=== PATIENT | male | born 1945 | race African-American/Black ===

== ENCOUNTER 2018-10-16 09:20 | Inpatient (IN) | payer MEDICARE, OTHER ==
[~2018-10-16] VITALS: Ht 185.4 cm; Wt 95.8 kg
--- NOTE | 2018-10-16 09:18 | NUR ---
ED Nurse Note: PT'S SISTER: [phone]
[~2018-10-16 09:20] MED LIST: KEPPRA500 M4 ORAL
[2018-10-16 09:48] VITALS: BP 159/88
--- NOTE | 2018-10-16 09:53 | NUR ---
ED Nurse Note: rigo vitale . pt from [facility] . pt has a sz per sister unknown minutes pt A&Ox3 unpon arrival pt has not taken his home meds today BS 142 per ems. Blood sent ivf up infusing pt down to ct.
[2018-10-16 09:57] LABS: BASOPHILS % (AUTO) 0.9 % (0.0-2.0); EOSINOPHILS % (AUTO) 1.4 % (0.0-3.0); HEMATOCRIT 37.5 % (42.0-52.0); HEMOGLOBIN 12.2 G/DL (14.2-18.0); LYMPHOCYTES % (AUTO) 19.4 % (20.0-45.0); MEAN CORPUSCULAR VOLUME 98 FL (80-99); MONOCYTES % (AUTO) 8.1 % (1.0-10.0); NEUTROPHILS % (AUTO) 70.1 % (45.0-75.0); PLATELET COUNT 216 K/UL (150-450); RED BLOOD COUNT 3.84 M/UL (4.70-6.10); RED CELL DISTRIBUTION WIDTH 12.4 % (11.6-14.8); WHITE BLOOD COUNT 6.6 K/UL (4.8-10.8)
--- NOTE | 2018-10-16 10:01 | NUR ---
ED Nurse Note: pt back from ct.
[2018-10-16 10:12] LABS: ANION GAP 9 mmol/L (5-15); BLOOD UREA NITROGEN 28 mg/dL (7-18); CALCIUM 9.2 MG/DL (8.5-10.1); CARBON DIOXIDE 25 MMOL/L (21-32); CHLORIDE 108 MMOL/L (98-107); CREATININE 1.9 MG/DL (0.55-1.30); POTASSIUM 3.9 MMOL/L (3.5-5.1); SODIUM 142 MMOL/L (136-145)
--- NOTE | 2018-10-16 10:20 | Diagnostic Imaging Report ---
Indication: Seizure. Headache Technique: Contiguous 5 mm thick transaxial imaging of the head obtained in a Siemens Sensation [address] scanner. Soft tissue and bone windows generated. Automatic Exposure Control was utilized. Total Dose length Product (DLP): 1404.[address] Dose Index Volume (CTDIvol): 70.38 mGy Comparison: none Findings: There is mild prominence of the ventricles, basal cisterns, and cerebral sulci consistent with atrophy. Mild, nonspecific, white matter hypoattenuation is noted throughout the brain consistent with chronic small vessel disease. There is no midline shift, edema, acute hemorrhage, mass effect, or abnormal extra-axial fluid collections. Bones are unremarkable. Impression: No acute intracranial bleed, mass effect or edema. Mild atrophy of the brain. Nonspecific white matter hypoattenuation probably due to chronic small vessel disease. The CT scanner at [facility] is accredited by the [employer] and the scans are performed using dose optimization techniques as appropriate to a performed exam including Automatic Exposure control.
[2018-10-16 10:22] LABS: ALANINE AMINOTRANSFERASE 21 U/L (12-78); ALBUMIN 4.1 G/DL (3.4-5.0); ALBUMIN/GLOBULIN RATIO 1.1 (1.0-2.7); ALKALINE PHOSPHATASE 61 U/L (46-116); ASPARTATE AMINO TRANSFERASE 22 U/L (15-37); BILIRUBIN,TOTAL 0.3 MG/DL (0.2-1.0); CKMB 1.8 NG/ML (0.0-3.6); CREATINE KINASE 152 U/L (26-308)
[2018-10-16 11:17] LABS: APPEARANCE,URINE CLEAR; BILIRUBIN, URINE NEGATIVE (NEGATIVE); COLOR,URINE PALE YELLOW; GLUCOSE, URINE (UA) NEGATIVE (NEGATIVE); KETONES,URINE NEGATIVE (NEGATIVE); LEUKOCYTE ESTERASE ,URINE NEGATIVE (NEGATIVE); NITRITE,URINE NEGATIVE (NEGATIVE); PH,URINE 6 (4.5-8.0); PROTEIN,URINE 2+ (NEGATIVE); UROBILINOGEN,URINE NORMAL MG/DL (0.0-1.0)
[2018-10-16] MEDS ORDERED: HYDROcodone/Acetamin 10/325 tab ORAL ONE (11:30)
[2018-10-16] MEDS ORDERED: Nitroglycerin Subl 0.4mg tab SL PRN (11:45)
[2018-10-16] MEDS ORDERED: LORazepam Inj 2mg/ml 1ml IV PRN ×2 (11:45)
[2018-10-16] MEDS ORDERED: Milk of Magnesia 30ml Ud ORAL PRN ×2 (11:45→18:45)
[2018-10-16 12:37] VITALS: BP 122/94
[2018-10-16] MEDS ORDERED: Enoxaparin 40mg Inj SUBQ SCH ×2 (12:45)
--- NOTE | 2018-10-16 13:16 | NUR ---
ED Nurse Note: called floor RN not available for report
[2018-10-16 13:30] VITALS: BP 164/81
--- NOTE | 2018-10-16 13:30 | NUR ---
NURSE NOTES: Patient is transferred from ED. Nurse report given by DALLAS Yeboah. Patient's in stable condition, no sign of distress or SOB. Denies pain. Bed at lowest position, break engaged, call light within reach. iron miner is connected on the patient, IV site is intact and asymptomatic, no sign of redness or tenderness. Patient's belonging list is sign off with ER nurse. His flip phone is at bed side, his belonging bags are in the drawers. Patient has a fenny bag that has his interiano and card inside, patient wishes to carry it on his body at all time. Obtain patient's home medications from sister, Debbie Finney. Admission orders in.
--- NOTE | 2018-10-16 13:59 | Diagnostic Imaging Report ---
Indication: Chest pain Comparison: 05/25/2011 A single view chest radiograph was obtained. Findings: Some prominence of the heart size and central vessels without overt CHF demonstrated. No infiltrate identified. Lung bases obscured by soft tissues. Bones are unremarkable. Surgical clips noted in the lower cervical spine. IMPRESSION: No acute findings
[2018-10-16 16:00] VITALS: BP 140/65
[2018-10-16] MEDS ORDERED: ELIQUIS5 MG PO (16:47)
[2018-10-16] MEDS ORDERED: METOPROLOL TART25 MG ORAL (16:47)
[2018-10-16] MEDS ORDERED: CATAPRES0.1 MG ORAL (16:47)
[2018-10-16] MEDS ORDERED: GABAPENTIN300 MG ORAL (16:47)
[2018-10-16] MEDS ORDERED: ATORVASTATIN CA40 MG ORAL (16:52)
[2018-10-16] MEDS ORDERED: LEVETIRACETAM500 MG ORAL (16:52)
[2018-10-16] MEDS ORDERED: AMLODIPINE BESYL5 MG ORAL (16:52)
[2018-10-16] MEDS ORDERED: ASPIRIN EC81 MG ORAL (16:54)
--- NOTE | 2018-10-16 17:31 | NUR ---
ED Nurse Note: pt moved to floor at 1330
[2018-10-16] MEDS ORDERED: NORCO 10-325 T1 EACH ORAL (17:34)
[2018-10-16] MEDS ORDERED: Bisacodyl EC 5mg tab ORAL SCH (17:45)
[2018-10-16] MEDS: Miralax 17gm pkt ORAL SCH (18:39)
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
[2018-10-16] MEDS: Eliquis 5mg tablet ORAL SCH (18:43)
--- NOTE | 2018-10-16 19:18 | NUR ---
HAND-OFF: Report given to DALLAS Terry. Pt is in stable condition; plan of care endorsed.
--- NOTE | 2018-10-16 19:30 | NUR ---
NURSE NOTES: Received pt from DALLAS Mc. Pt awake, alert, and talkative. Bed in lowest position. Call light within reach. Will continue to monitor.
[2018-10-16 20:00] VITALS: BP 141/80
[2018-10-16] MEDS: NovoLOG Insulin Flexpen SUBQ SCH (21:00)
[2018-10-16] MEDS ORDERED: Metoprolol 25mg tab ORAL SCH (21:00)
[2018-10-16] MEDS: Metoprolol 25mg tab ORAL SCH (22:26)
[2018-10-17] VITALS: BP 141/66
--- NOTE | 2018-10-17 03:56 | NUR ---
HAND-OFF: Report given to DALLAS Loera. Pt stable.
[2018-10-17 04:00] VITALS: BP 146/89
[2018-10-17] MEDS: NovoLOG Insulin Flexpen SUBQ SCH ×4 (06:12→20:40)
[2018-10-17 07:14] LABS: BASOPHILS % (AUTO) 0.8 % (0.0-2.0); EOSINOPHILS % (AUTO) 2.1 % (0.0-3.0); HEMATOCRIT 35.3 % (42.0-52.0); HEMOGLOBIN 11.4 G/DL (14.2-18.0); LYMPHOCYTES % (AUTO) 19.8 % (20.0-45.0); MEAN CORPUSCULAR VOLUME 97 FL (80-99); MONOCYTES % (AUTO) 7.6 % (1.0-10.0); NEUTROPHILS % (AUTO) 69.8 % (45.0-75.0); PLATELET COUNT 203 K/UL (150-450); RED BLOOD COUNT 3.63 M/UL (4.70-6.10); RED CELL DISTRIBUTION WIDTH 12.4 % (11.6-14.8); WHITE BLOOD COUNT 7.1 K/UL (4.8-10.8)
--- NOTE | 2018-10-17 07:30 | NUR ---
HAND-OFF: Report given to DALLAS Casas. Endorsed plan of care.
--- NOTE | 2018-10-17 07:40 | NUR ---
NURSE NOTES: Received report from Raul Loera. Patient received awake and alertx4. in no apparent distress. Will continue to monitor.
[2018-10-17 07:54] LABS: ANION GAP 11 mmol/L (5-15); BLOOD UREA NITROGEN 19 mg/dL (7-18); CARBON DIOXIDE 22 MMOL/L (21-32); CHLORIDE 108 MMOL/L (98-107); CREATININE 1.6 MG/DL (0.55-1.30); SODIUM 141 MMOL/L (136-145)
[2018-10-17 08:00] VITALS: BP 147/71
--- NOTE | 2018-10-17 08:55 | NUR ---
PT EVALUATION NOTE Patient seen for initial evaluation, see complete evaluation for details. Patient presents with impaired balance, safety awareness, impaired gait mechanics with hypertonicity BLEs and impaired functional mobility. Patient is at risk for falls due to impulsivity and impaired balance. Patient will benefit from skilled inpatient PT intervention to address balance, safety, gait mechanics and functional mobility to decrease fall risk and improve level of function. Recommend discharge to SNF for further rehab to improve safety and mobility once medically cleared by MD. DME needs to be determined, patient states he has DME (a FWW, a bedside commode, single point cane, 4 wheeled walker with a seat, shower chair, a manual wheelchair and an electric wheelchair). . Addendum: 10/17/18 at 1204 by LOS CAMPOS PT Amended: Links added.
[2018-10-17] MEDS: Miralax 17gm pkt ORAL SCH ×2 (09:00→17:13)
[2018-10-17] MEDS: Metoprolol 25mg tab ORAL SCH ×2 (09:00→20:31)
[2018-10-17] MEDS: Aspirin EC 81mg tab ORAL SCH (09:31)
[2018-10-17] MEDS: Atorvastatin 80mg tab ORAL SCH (09:32)
[2018-10-17] MEDS: Eliquis 5mg tablet ORAL SCH ×2 (09:32→17:02)
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
[2018-10-17 11:58] VITALS: BP 135/66
[2018-10-17 16:00] VITALS: BP 112/63
--- NOTE | 2018-10-17 16:12 | NUR ---
CASE MANAGEMENT:REVIEW 73 YR OLD MALE BIBA FROM HOME CC: WITNESSED SEIZURE PMH: SEIZURE DISORDER SI: INTRACTABLE SEIZURE 98.0 72 18 167/70 100% ON RA H/H-12.2/37.5 BUN+28 CR+1.9 IS: 1L NS BOLUS NORCO PO CT HEAD CXR : TO TELEMETRY
--- NOTE | 2018-10-17 18:30 | General Progress Note ---
Assessment/Plan Status: stable Assessment/Plan: Status: stable Status Narrative 73 y/o AA male admitted for acute onset of seizure after non medical therapy for 3 days. # Seizure disorder - Continue Keppra 500 mg BID - Seizure precautions - CT head reviewed. - Non compliance with medical therapy is the most likely etiology and will monitor for now. No need for MRI brain. # CAD - Try to obtain old records - Resume home medications. # PAF - Most likely diagnosis and patient is on Eliquis as outpatient. - Will follow up and try to confirm information. # General weakness - PT and OT evaluation noted and SNF is indicated. - Patient is open to SNF - CM consult and follow up - please call me to discuss SNF if needed. Ordered placed. - # Full code Subjective Constitutional: Reports: malaise, weakness Neurologic/Psychiatric: Reports: anxiety Allergies: Coded Allergies: CODEINE (Unverified Allergy, Unknown, 10/16/18) All Systems: reviewed and negative except above Objective Last 24 Hour Vital Signs Date Time Temp Pulse Resp B/P (MAP) Pulse Ox O2 Delivery O2 Flow Rate FiO2 10/17/18 17:11 112/63 10/17/18 16:00 98.8 58 20 112/63 (79) 100 10/17/18 16:00 56 10/17/18 12:00 58 10/17/18 11:58 98.2 51 18 135/66 (89) 98 10/17/18 09:33 147/71 10/17/18 09:33 61 147/71 10/17/18 09:00 Room Air 10/17/18 09:00 61 147/71 10/17/18 08:00 98.6 61 20 147/71 (96) 98 10/17/18 08:00 75 10/17/18 04:00 98.5 73 24 146/89 (108) 96 10/17/18 04:00 73 10/17/18 00:00 97.7 60 20 141/66 (91) 96 10/17/18 00:00 60 10/16/18 22:26 72 141/80 10/16/18 21:00 Room Air 10/16/18 20:00 98.7 72 18 141/80 (100) 97 10/16/18 20:00 65 10/16/18 18:41 140/65 Intake and Output 7/17/19 7/18/19 19:00 07:00 Intake Total 1120 ml 120 ml Output Total 600 ml Balance 520 ml 120 ml Intake Oral 120 ml 120 ml IV Total 1000 ml Output Urine Total 600 ml # Voids 1 Laboratory Tests 10/17/18 06:16: White Blood Count 7.1, Red Blood Count 3.63L, Hemoglobin 11.4L, Hematocrit 35.3L , Mean Corpuscular Volume 97, Mean Corpuscular Hemoglobin 31.3H, Mean Corpuscular Hemoglobin Concent 32.1, Red Cell Distribution Width 12.4, Platelet Count 203, Mean Platelet Volume 7.4, Neutrophils (%) (Auto) 69.8, Lymphocytes (% ) (Auto) 19.8L, Monocytes (%) (Auto) 7.6, Eosinophils (%) (Auto) 2.1, Basophils (%) (Auto) 0.8, Sodium Level 141, Potassium Level 4.0, Chloride Level 108H, Carbon Dioxide Level 22, Anion Gap 11, Blood Urea Nitrogen 19H, Creatinine 1.6H , Estimat Glomerular Filtration Rate , Glucose Level 115H, Hemoglobin A1c 5.6, Calcium Level 9.0, Thyroid Stimulating Hormone (TSH) 0.160L Height (Feet): 6 Height (Inches): 1.00 Weight (Pounds): 206 General Appearance: WD/WN EENT: PERRL/EOMI Neck: non-tender Cardiovascular: normal peripheral pulses, normal rate Respiratory/Chest: chest wall non-tender Abdomen: normal bowel sounds, non tender Extremities: normal range of motion Edema: trace edema Neurologic: emt driver II-XII grossly normal Patrick Woo MD Oct 17, 2018 18:30
--- NOTE | 2018-10-17 19:57 | NUR ---
HAND-OFF: Report given to Raul Carpenter. patient stable. Plan of care endorsed
[2018-10-17 20:00] VITALS: BP 147/82
--- NOTE | 2018-10-17 20:00 | NUR ---
NURSE NOTES: Received report from Elias Ellsworth RN. Patient in bed AAO X3-4 with no complaints of acute pain or discomfort noted. Kept clean, dry, and comfortable in bed. IV line intact and patent SL with continuous cardiac monitoring in place. Able to ambulate using a walker to the bathroom, and offered bedside urinal PRN. Insists on using diapers PRN as well. On RA with no S/S of SOB or resp. distress, 02 sat at 95-96%. Safety and seizure precaution in place; siderails X2 up and padded, call light within reach, bed in lowest position and free from clutter, brakes and alarm on at all times, and suction equipment at bedside. Needs and wants anticipated and attended, will continue plan of care and monitor for any changes noted.
[2018-10-18] VITALS: BP 126/65
[2018-10-18 04:00] VITALS: BP 122/72
--- NOTE | 2018-10-18 04:00 | NUR ---
NURSE NOTES: Patient in bed asleep with no S/S of distress. Will continue to monitor
[2018-10-18] MEDS: NovoLOG Insulin Flexpen SUBQ SCH ×4 (06:21→21:00)
[2018-10-18 06:49] LABS: ANION GAP 10 mmol/L (5-15); BLOOD UREA NITROGEN 18 mg/dL (7-18); CALCIUM 8.9 MG/DL (8.5-10.1); CARBON DIOXIDE 23 MMOL/L (21-32); CHLORIDE 110 MMOL/L (98-107); CREATININE 1.5 MG/DL (0.55-1.30); SODIUM 143 MMOL/L (136-145)
--- NOTE | 2018-10-18 07:03 | Emergency Room Report ---
History of Present Illness General Chief Complaint: Seizure Source: Patient Present Illness HPI Patient presents with complaints of seizure activity Patient himself does not recall the specific incident however he does feel sore similar to previous seizures patient does not recall his medications He complained of a mild headache Also complains of left knee pain and left upper arm pain Denies any chest pain or shortness of breath denies any neck pain denies any vomiting or diarrhea Patient cannot recall specifically when his last seizure was however it was within the last 2 weeks Allergies: Coded Allergies: CODEINE (Unverified Allergy, Unknown, 10/16/18) Patient History Past Medical History: see triage record Pertinent Family History: none Reviewed Nursing Documentation: PMH: Agreed; PSxH: Agreed Nursing Documentation-PMH Past Medical History Deferred: Pt Cognitively Impaired Past Medical History: Deferred Hx Hypertension: Yes Hx Diabetes: Yes Hx Cancer: No Hx Gastrointestinal Problems: No Hx Transient Ischemic Attacks: Yes Hx Seizures: Yes Hx Weakness: Yes Review of Systems All Other Systems: negative except mentioned in HPI Physical Exam Vital Signs Date Time Temp Pulse Resp B/P (MAP) Pulse Ox O2 Delivery O2 Flow Rate FiO2 10/16/18 09:14 98.1 72 18 167/70 (102) 100 Room Air Sp02 EP Interpretation: reviewed, normal General Appearance: well appearing, no apparent distress Head: normocephalic, atraumatic Eyes: bilateral eye PERRL ENT: normal pharynx, no angioedema Neck: supple Respiratory: lungs clear, no retraction, no accessory muscle use Cardiovascular #1: regular rate, rhythm Gastrointestinal: soft, no mass Musculoskeletal: other - Equal service operator and upper extremity Neurologic: alert, oriented x3, responsive Skin: no rash Lymphatic: normal inspection Medical Decision Making Diagnostic Impression: Primary Impression: Epileptic seizure, generalized Additional Impression: Seizure ER Course Multiple differentials including but not limited to metabolic, neurological neurosurgical, infectious pathology entertained, given the patient's discomfort and presentation imaging was obtained Blood work remains at baseline levels Patient has a poor outpatient disposition and will require further inpatient care Labs Test 10/16/18 09:35 10/16/18 10:50 10/17/18 06:16 10/18/18 05:50 White Blood Count 6.6 K/UL (4.8-10.8) 7.1 K/UL (4.8-10.8) Red Blood Count 3.84 M/UL (4.70-6.10) 3.63 M/UL (4.70-6.10) Hemoglobin 12.2 G/DL (14.2-18.0) 11.4 G/DL (14.2-18.0) Hematocrit 37.5 % (42.0-52.0) 35.3 % (42.0-52.0) Mean Corpuscular Volume 98 FL (80-99) 97 FL (80-99) Mean Corpuscular Hemoglobin 31.7 PG (27.0-31.0) 31.3 PG (27.0-31.0) Mean Corpuscular Hemoglobin Concent 32.4 G/DL (32.0-36.0) 32.1 G/DL (32.0-36.0) Red Cell Distribution Width 12.4 % (11.6-14.8) 12.4 % (11.6-14.8) Platelet Count 216 K/UL (150-450) 203 K/UL (150-450) Mean Platelet Volume 7.3 FL (6.5-10.1) 7.4 FL (6.5-10.1) Neutrophils (%) (Auto) 70.1 % (45.0-75.0) 69.8 % (45.0-75.0) Lymphocytes (%) (Auto) 19.4 % (20.0-45.0) 19.8 % (20.0-45.0) Monocytes (%) (Auto) 8.1 % (1.0-10.0) 7.6 % (1.0-10.0) Eosinophils (%) (Auto) 1.4 % (0.0-3.0) 2.1 % (0.0-3.0) Basophils (%) (Auto) 0.9 % (0.0-2.0) 0.8 % (0.0-2.0) Prothrombin Time 10.6 SEC (9.30-11.50) Prothromb Time International Ratio 1.0 (0.9-1.1) Activated Partial Thromboplast Time 30 SEC (23-33) Sodium Level 142 MMOL/L (136-145) 141 MMOL/L (136-145) 143 MMOL/L (136-145) Potassium Level 3.9 MMOL/L (3.5-5.1) 4.0 MMOL/L (3.5-5.1) 4.0 MMOL/L (3.5-5.1) Chloride Level 108 MMOL/L (98-107) 108 MMOL/L (98-107) 110 MMOL/L (98-107) Carbon Dioxide Level 25 MMOL/L (21-32) 22 MMOL/L (21-32) 23 MMOL/L (21-32) Anion Gap 9 mmol/L (5-15) 11 mmol/L (5-15) 10 mmol/L (5-15) Blood Urea Nitrogen 28 mg/dL (7-18) 19 mg/dL (7-18) 18 mg/dL (7-18) Creatinine 1.9 MG/DL (0.55-1.30) 1.6 MG/DL (0.55-1.30) 1.5 MG/DL (0.55-1.30) Estimat Glomerular Filtration Rate mL/min (>60) mL/min (>60) mL/min (>60) Glucose Level 136 MG/DL (74-106) 115 MG/DL (74-106) 125 MG/DL (74-106) Lactic Acid Level 1.80 mmol/L (0.4-2.0) Calcium Level 9.2 MG/DL (8.5-10.1) 9.0 MG/DL (8.5-10.1) 8.9 MG/DL (8.5-10.1) Total Bilirubin 0.3 MG/DL (0.2-1.0) Aspartate Amino Transf (AST/SGOT) 22 U/L (15-37) Alanine Aminotransferase (ALT/SGPT) 21 U/L (12-78) Alkaline Phosphatase 61 U/L (46-116) Total Creatine Kinase 152 U/L (26-308) Creatine Kinase MB 1.8 NG/ML (0.0-3.6) Creatine Kinase MB Relative Index 1.1 Troponin I 0.008 ng/mL (0.000-0.056) Pro-B-Type Natriuretic Peptide 765 pg/mL (0-125) Total Protein 8.0 G/DL (6.4-8.2) Albumin 4.1 G/DL (3.4-5.0) Globulin 3.9 g/dL Albumin/Globulin Ratio 1.1 (1.0-2.7) Lipase 137 U/L (73-393) Serum Alcohol < 3 mg/dL Urine Color Pale yellow Urine Appearance Clear Urine pH 6 (4.5-8.0) Urine Specific [place] 1.015 (1.005-1.035) Urine Protein 2+ (NEGATIVE) Urine Glucose (UA) Negative (NEGATIVE) Urine Ketones Negative (NEGATIVE) Urine Blood 1+ (NEGATIVE) Urine Nitrite Negative (NEGATIVE) Urine Bilirubin Negative (NEGATIVE) Urine Urobilinogen Normal MG/DL (0.0-1.0) Urine Leukocyte Esterase Negative (NEGATIVE) Urine RBC 0-2 /HPF (0 - 0) Urine WBC 0 /HPF (0 - 0) Urine Squamous Epithelial Cells Occasional /LPF Urine Bacteria Occasional /HPF (NONE) Hemoglobin A1c 5.6 % (4.3-6.0) Thyroid Stimulating Hormone (TSH) 0.160 uiU/mL (0.358-3.740) Rhythm Strip Diag. Results EP Interpretation: yes Rate: 77 Rhythm: NSR, no PVC's, no ectopy Chest X-Ray Diagnostic Results Chest X-Ray Diagnostic Results : Chest X-Ray Ordered: Yes # of Views/Limited/Complete: 1 View Indication: Chest Pain EP Interpretation: Yes Interpretation: no consolidation, no effusion, no pneumothorax Impression: No acute disease Electronically Signed by: Jodie Avendaño DO CT/MRI/US Diagnostic Results CT/MRI/US Diagnostic Results : Impression CT HeadImpression: No acute intracranial bleed, mass effect or edema. Mild atrophy of the brain. Nonspecific white matter hypoattenuation probably due to chronic small vessel disease. Last Vital Signs Date Time Temp Pulse Resp B/P (MAP) Pulse Ox O2 Delivery O2 Flow Rate FiO2 10/18/18 04:00 97.7 62 18 122/72 (89) 97 10/17/18 21:00 Room Air Status: improved Disposition: ADMITTED INPATIENT Condition: Serious Referrals: NOT CHOSEN IPA/,REFERRING (PCP) Jodie Avendaño DO Oct 18, 2018 07:03
--- NOTE | 2018-10-18 07:33 | NUR ---
HAND-OFF: Report given to Loi Berman RN. Patient in bed asleep with no S/S of distress at this time. Endorsed plan of care.
[2018-10-18 08:00] VITALS: BP 149/80
--- NOTE | 2018-10-18 08:00 | NUR ---
NURSE NOTES: Patient is alert and oriented. Patient is sitting at side of bed eating breakfast, no reports of discomfort. Side rails are upx2 and padded. Bed is locked, in lowest position, and call light is within reach. Will continue to monitor.
[2018-10-18] MEDS: Eliquis 5mg tablet ORAL SCH ×2 (08:39→17:30)
[2018-10-18] MEDS: Atorvastatin 80mg tab ORAL SCH (08:39)
[2018-10-18] MEDS: HYDROcodone/Acetamin 5/325 tab ORAL PRN ×2 (08:39→17:32)
[2018-10-18] MEDS: Aspirin EC 81mg tab ORAL SCH (08:40)
[2018-10-18] MEDS: Metoprolol 25mg tab ORAL SCH ×2 (08:41→21:20)
[2018-10-18] MEDS: Miralax 17gm pkt ORAL SCH ×2 (08:45→17:26)
--- NOTE | 2018-10-18 09:25 | NUR ---
CASE MANAGEMENT:REVIEW 10/18/18 SI: SEIZURE. PAFIB 98.4 59 18 149/80 93% ON RA CR+1.5 IS: NORVASC PO QD ASA PO QD KEPPRA PO Q12 LOPRESSOR PO Q12 ELIQUIS PO BID : TELEMETRY DCP: FROM HOME
[2018-10-18 12:00] VITALS: BP 136/68
[2018-10-18 16:00] VITALS: BP 136/81
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
--- NOTE | 2018-10-18 17:15 | General Progress Note ---
Assessment/Plan Status: stable Assessment/Plan: Status: stable Status Narrative 73 y/o AA male admitted for acute onset of seizure after non medical therapy for 3 days. # Seizure disorder - Continue Keppra 500 mg BID - Seizure precautions - CT head reviewed. - Non compliance with medical therapy is the most likely etiology and will monitor for now. No need for MRI brain. # CAD - Try to obtain old records - Resume home medications. # PAF - Most likely diagnosis and patient is on Eliquis as outpatient. - Will follow up and try to confirm information. # General weakness - PT and OT evaluation noted and SNF is indicated but no coverage is left. - CM consult and follow up - Patient has used ALL SNF days and need to find a way to place at a safe environment. - # Full code Subjective ROS Limited/Unobtainable: Yes Cardiovascular: Reports: no symptoms Respiratory: Reports: no symptoms Gastrointestinal/Abdominal: Reports: abdomen distended Allergies: Coded Allergies: CODEINE (Unverified Allergy, Unknown, 10/16/18) All Systems: reviewed and negative except above Objective Last 24 Hour Vital Signs Date Time Temp Pulse Resp B/P (MAP) Pulse Ox O2 Delivery O2 Flow Rate FiO2 10/18/18 12:00 61 10/18/18 12:00 98.2 59 18 136/68 (90) 94 10/18/18 08:41 59 149/80 10/18/18 08:41 149/80 10/18/18 08:40 59 149/80 10/18/18 08:15 Room Air 10/18/18 08:00 74 10/18/18 08:00 98.4 59 18 149/80 (103) 93 10/18/18 04:00 97.7 62 18 122/72 (89) 97 10/18/18 04:00 59 10/18/18 00:00 51 10/18/18 00:00 97.4 51 18 126/65 (85) 98 10/17/18 21:00 Room Air 10/17/18 20:31 66 147/82 10/17/18 20:00 88 10/17/18 20:00 97.9 66 18 147/82 (103) 96 Intake and Output 10/17/18 10/18/18 19:00 07:00 Intake Total 280 ml Balance 280 ml Intake Oral 280 ml # Voids 3 3 # Bowel Movements 6 Laboratory Tests 10/18/18 05:50: Sodium Level 143, Potassium Level 4.0, Chloride Level 110H, Carbon Dioxide Level 23, Anion Gap 10, Blood Urea Nitrogen 18, Creatinine 1.5H, Estimat Glomerular Filtration Rate , Glucose Level 125H, Calcium Level 8.9 Height (Feet): 6 Height (Inches): 1.00 Weight (Pounds): 206 General Appearance: WD/WN EENT: PERRL/EOMI Cardiovascular: normal peripheral pulses, normal rate Respiratory/Chest: chest wall non-tender, lungs clear Abdomen: normal bowel sounds Neurologic: state inspector II-XII grossly normal Patrick Woo MD Oct 18, 2018 17:15
--- NOTE | 2018-10-18 19:53 | NUR ---
HAND-OFF: Report given to DALLAS Myers.
--- NOTE | 2018-10-18 19:54 | NUR ---
NURSE NOTES: Got report from Aminata HAYNES. Pt in stable condition. Denies any pain. No s/s of distress or discomfort noted. Pt resting in bed comfortably. Bed in low and locked position, call light within reach, bedside table within reach. Continue to monitor.
[2018-10-18 20:00] VITALS: BP 139/71
[2018-10-19] VITALS: BP 116/58
[2018-10-19] MEDS: HYDROcodone/Acetamin 5/325 tab ORAL PRN ×4 (00:40→20:34)
--- NOTE | 2018-10-19 03:00 | NUR ---
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 Charge nurse notified. Contact precautions placed.
[2018-10-19 04:20] VITALS: BP 123/70
[2018-10-19] MEDS: NovoLOG Insulin Flexpen SUBQ SCH ×4 (06:12→20:41)
--- NOTE | 2018-10-19 07:00 | NUR ---
HAND-OFF: Report given to Sophy HAYNES. Endorsed plan of care.
--- NOTE | 2018-10-19 07:52 | NUR ---
NURSE NOTES: Received report from DALLAS Myers. The patient is resting on the bed without acute distress or shortness of breath. The patient is alert and oriented and talkative. The patient's bed in the lowest position, call light in reach, and fall, aspiration, and seizure precaution reinforced. Will continue plan of care.
[2018-10-19 08:00] VITALS: BP 132/75
[2018-10-19] MEDS: Eliquis 5mg tablet ORAL SCH ×2 (09:00→17:29)
[2018-10-19] MEDS: Miralax 17gm pkt ORAL SCH ×3 (09:00→17:28)
[2018-10-19] MEDS: Metoprolol 25mg tab ORAL SCH ×2 (09:00→20:32)
[2018-10-19] MEDS: Aspirin EC 81mg tab ORAL SCH (09:30)
[2018-10-19] MEDS: Atorvastatin 80mg tab ORAL SCH (09:34)
[2018-10-19 12:00] VITALS: BP 126/60
--- NOTE | 2018-10-19 12:00 | NUR ---
NURSE NOTES: The patient is stable without acute distress or shortness of breath. The patient's skin is intact. No seizure noted. Will continue plan of care.
--- NOTE | 2018-10-19 13:01 | General Progress Note ---
Assessment/Plan Status: stable Assessment/Plan: Status: stable Status Narrative 73 y/o AA male admitted for acute onset of seizure after non medical therapy for 3 days. # Seizure disorder - Continue Keppra 500 mg BID - Seizure precautions - CT head reviewed. - Non compliance with medical therapy is the most likely etiology and will monitor for now. No need for MRI brain. - Baseline function, no need for neurology consultation. # CAD - Unable to obtain old records - Resume home medications. # PAF - Most likely diagnosis and patient is on Eliquis as outpatient. - Will follow up and try to confirm information. # General weakness - PT and OT evaluation noted and SNF is indicated but no coverage is left. - CM consult and follow up - Patient has used ALL SNF days and need to find a way to place at a safe environment. - PLACEMENT PENDING - # Full code Subjective ROS Limited/Unobtainable: Yes Allergies: Coded Allergies: CODEINE (Unverified Allergy, Unknown, 10/16/18) All Systems: reviewed and negative except above Subjective complains about the food and same menu all the time. No more seizures noted. Objective Last 24 Hour Vital Signs Date Time Temp Pulse Resp B/P (MAP) Pulse Ox O2 Delivery O2 Flow Rate FiO2 10/19/18 09:37 58 127/73 10/19/18 09:00 58 127/73 10/19/18 09:00 127/73 10/19/18 08:00 98.3 70 18 132/75 (94) 99 10/19/18 07:07 97.9 10/19/18 04:20 97.9 65 18 123/70 (87) 98 10/19/18 04:20 61 10/19/18 00:00 97.9 58 18 116/58 (77) 98 10/19/18 00:00 54 10/18/18 21:20 60 139/71 10/18/18 21:00 Room Air 10/18/18 20:00 56 10/18/18 20:00 97.7 60 20 139/71 (93) 97 10/18/18 17:30 136/81 10/18/18 16:00 53 10/18/18 16:00 98.3 56 20 136/81 (99) 98 Intake and Output 10/18/18 10/19/18 19:00 07:00 Intake Total 450 ml Balance 450 ml Intake Oral 450 ml # Voids 3 3 Height (Feet): 6 Height (Inches): 1.00 Weight (Pounds): 206 General Appearance: WD/WN EENT: PERRL/EOMI Neck: non-tender Cardiovascular: normal peripheral pulses Respiratory/Chest: chest wall non-tender Abdomen: normal bowel sounds Edema: trace edema Neurologic: commercial leasing agent II-XII grossly normal Skin: normal pigmentation Patrick Woo MD Oct 19, 2018 13:01
[2018-10-19 16:00] VITALS: BP 129/72
--- NOTE | 2018-10-19 19:00 | NUR ---
NURSE NOTES: Pt report received from HILARIA Matute RN TELE. pt appears to be watching TV and sitting up in bed. pt has a school lunch monitor in place, showing NRS, no signs symptoms of acute cardiac abnormalities noted at this moment. pt is on room air able to sat at 100%, no signs symptoms of acute resp distress noted. pts side rails are padded for SZR precautions. suction at bed side. all other saftey measure in place, bed locked and low, call light within reach, bed rails up times 2, walker by bed side. will continue plan of care.
--- NOTE | 2018-10-19 19:30 | NUR ---
HAND-OFF: Report given to DALLAS Wilcox. The patient is resting on the bed without acute distress or shortness of breath. The patient's bed in the lowest position, call light in reach, and fall, aspiration, and seizure precaution reinforced. Endorsed plan of care.
[2018-10-19 20:00] VITALS: BP 136/81
--- NOTE | 2018-10-19 23:30 | NUR ---
NURSE NOTES: contacted MD Chilo Saavedra office and spoke with Nava in regards to Pts TSH 0.160 level. awaiting MD response.
[2018-10-20] VITALS: BP 160/75
--- NOTE | 2018-10-20 00:19 | NUR ---
NURSE NOTES: MD Marquez called back, in regards to Pts THS lab. she stated to place order for Free T4 ([facility]). will carry out order.
[2018-10-20] MEDS: HYDROcodone/Acetamin 5/325 tab ORAL PRN ×4 (03:41→22:34)
[2018-10-20 04:00] VITALS: BP 136/67
--- NOTE | 2018-10-20 05:30 | NUR ---
NURSE NOTES: Pt blood sugar finger stick is 117. pt offered 1 unit OLESYA. pt refused Novolog.
[2018-10-20] MEDS: NovoLOG Insulin Flexpen SUBQ SCH ×4 (05:38→20:41)
--- NOTE | 2018-10-20 07:16 | NUR ---
HAND-OFF: Report given to Cullen HAYNES TELE.
[2018-10-20 08:00] VITALS: BP 141/76
--- NOTE | 2018-10-20 08:15 | NUR ---
NURSE NOTES: Patient is alert and oriented. Patient is resting in bed. Side rails are upx2 and padded. Bed is locked, in lowest position, and call light is within reach. Will continue to monitor.
[2018-10-20] MEDS: Atorvastatin 80mg tab ORAL SCH (08:40)
[2018-10-20] MEDS: Aspirin EC 81mg tab ORAL SCH (08:40)
[2018-10-20] MEDS: Eliquis 5mg tablet ORAL SCH ×2 (08:41→17:51)
[2018-10-20] MEDS: Metoprolol 25mg tab ORAL SCH (08:41)
[2018-10-20] MEDS: Miralax 17gm pkt ORAL SCH ×3 (08:43→17:56)
[2018-10-20 12:00] VITALS: BP 129/72
--- NOTE | 2018-10-20 14:53 | General Progress Note ---
Assessment/Plan Status: stable Assessment/Plan: Status: stable Status Narrative 73 y/o AA male admitted for acute onset of seizure after non medical therapy for 3 days. # Seizure disorder - Continue Keppra 500 mg BID - Seizure precautions - CT head reviewed. - Non compliance with medical therapy is the most likely etiology and will monitor for now. No need for MRI brain. - Baseline function, no need for neurology consultation. # CAD - Unable to obtain old records - Resume home medications. # PAF - Most likely diagnosis and patient is on Eliquis as outpatient. - Will follow up and try to confirm information. 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 - CM consult and follow up - Patient has used ALL SNF days and need to find a way to place at a safe environment. - PLACEMENT PENDING and NEEDS SW/CM active input. Medically stable for discharge. - # Full code Subjective Allergies: Coded Allergies: CODEINE (Unverified Allergy, Unknown, 10/16/18) All Systems: reviewed and negative except above Subjective complains about the food and same menu all the time. No more seizures noted. He reports coming from living [place] of [facility] ( [facility] Denies having family or support system. Objective Last 24 Hour Vital Signs Date Time Temp Pulse Resp B/P (MAP) Pulse Ox O2 Delivery O2 Flow Rate FiO2 10/20/18 12:00 55 10/20/18 12:00 98.2 54 19 129/72 (91) 98 10/20/18 08:41 59 141/76 10/20/18 08:41 141/76 10/20/18 08:41 59 141/76 10/20/18 08:30 Room Air 10/20/18 08:00 59 10/20/18 08:00 98.6 59 18 141/76 (97) 97 10/20/18 04:00 97.8 53 17 136/67 (90) 99 10/20/18 03:48 64 10/20/18 00:00 98.1 77 18 160/75 (103) 99 10/19/18 23:48 56 10/19/18 21:00 Room Air 10/19/18 20:32 64 136/81 10/19/18 20:00 98.2 64 19 136/81 (99) 99 10/19/18 19:32 58 10/19/18 18:38 139/67 10/19/18 16:00 64 10/19/18 16:00 98.1 73 19 129/72 (91) 99 Intake and Output 10/19/18 10/20/18 19:00 07:00 Intake Total 3000 ml Output Total 900 ml 2000 ml Balance 2100 ml -2000 ml Intake Oral 3000 ml Output Urine Total 900 ml 2000 ml # Voids 1 Laboratory Tests 10/20/18 06:40: Free Thyroxine 1.05 Height (Feet): 6 Height (Inches): 1.00 Weight (Pounds): 206 General Appearance: WD/WN EENT: PERRL/EOMI Cardiovascular: normal rate, regular rhythm Respiratory/Chest: normal breath sounds, decreased breath sounds Abdomen: normal bowel sounds, non tender, soft Extremities: normal range of motion Neurologic: oil scout II-XII grossly normal, no motor/sensory deficits Skin: normal pigmentation Patrick Woo MD Oct 20, 2018 14:53
[2018-10-20 16:00] VITALS: BP 115/75
--- NOTE | 2018-10-20 16:17 | NUR ---
NURSE NOTES: Heart rate decreased 45-47. Dr. Woo notified. Patient has no symptoms of discomfort. No new orders received.
--- NOTE | 2018-10-20 19:29 | NUR ---
NURSE NOTES: RECEIVED PATIENT RESTING IN BED, NO COMPLAINTS OF PAIN AT THIS TIME. FALL AND SEIZURE PRECAUTIONS IN PLACE: CALL LIGHT, BED SIDE TABLE, URINAL AND WALKER WITHIN REACH, BED IN LOW POSITION AND BED ALARM ON, SIDE RAILS PADDED AND HOB ELEVATED. PLAN OF CARE REVIEWED.
--- NOTE | 2018-10-20 19:37 | NUR ---
HAND-OFF: Report given to DALLAS Segovia.
[2018-10-20 20:00] VITALS: BP 152/79
--- NOTE | 2018-10-20 21:50 | NUR ---
NURSE NOTES: NOTED PATIENT HAS UNSTEADY GAIT AND AMBULATES WITH WALKER. PLACED COMMODE AT BEDSIDE AND INSTRUCTED PATIENT TO CALL FOR ASSISTANCE. PATIENT REFUSED TO USE COMMODE AND REQUESTED NOT TO HAVE BED ALARM ON. EXPLAINED TO PATIENT FALL AND SAFETY PRECAUTIONS. PATIENT VERBALIZED UNDERSTANDING BUT STILL REFUSING TO HAVE BED ALARM ON AND TO USE BEDSIDE COMMODE. CALL LIGHT WITHIN REACH WILL MONITOR PATIENT CLOSELY.
[2018-10-21] VITALS: BP 127/68
[2018-10-21 04:00] VITALS: BP 133/69
[2018-10-21] MEDS: HYDROcodone/Acetamin 5/325 tab ORAL PRN ×3 (05:01→20:54)
[2018-10-21 06:05] LABS: BASOPHILS % (AUTO) 0.7 % (0.0-2.0); EOSINOPHILS % (AUTO) 3.1 % (0.0-3.0); HEMATOCRIT 34.4 % (42.0-52.0); HEMOGLOBIN 11.2 G/DL (14.2-18.0); LYMPHOCYTES % (AUTO) 26.2 % (20.0-45.0); MEAN CORPUSCULAR VOLUME 97 FL (80-99); MONOCYTES % (AUTO) 8.9 % (1.0-10.0); NEUTROPHILS % (AUTO) 61.2 % (45.0-75.0); PLATELET COUNT 212 K/UL (150-450); RED BLOOD COUNT 3.55 M/UL (4.70-6.10); RED CELL DISTRIBUTION WIDTH 12.2 % (11.6-14.8); WHITE BLOOD COUNT 6.3 K/UL (4.8-10.8)
[2018-10-21] MEDS: NovoLOG Insulin Flexpen SUBQ SCH ×4 (06:10→20:46)
[2018-10-21 06:13] LABS: ANION GAP 7 mmol/L (5-15); BLOOD UREA NITROGEN 27 mg/dL (7-18); CARBON DIOXIDE 25 MMOL/L (21-32); CHLORIDE 108 MMOL/L (98-107); CREATININE 1.8 MG/DL (0.55-1.30); SODIUM 140 MMOL/L (136-145)
--- NOTE | 2018-10-21 07:09 | NUR ---
HAND-OFF: Report given to Elias ROMERO RN. PATIENT RESTING IN BED, NO SIGNS OF DISTRESS NOTED.
--- NOTE | 2018-10-21 07:36 | NUR ---
NURSE NOTES: receieved report from Juliette Carter.patient in bed awake and alert, stable condition. Will follow
[2018-10-21 08:00] VITALS: BP 136/60
[2018-10-21] MEDS: Miralax 17gm pkt ORAL SCH ×2 (08:38→17:13)
[2018-10-21] MEDS: Aspirin EC 81mg tab ORAL SCH (08:39)
[2018-10-21] MEDS: Atorvastatin 80mg tab ORAL SCH (08:39)
[2018-10-21] MEDS: Eliquis 5mg tablet ORAL SCH ×2 (08:39→17:13)
--- NOTE | 2018-10-21 09:33 | General Progress Note ---
Assessment/Plan Status: stable Assessment/Plan: 73 y/o AA male admitted for acute onset of seizure after non medical therapy for 3 days. # Seizure disorder - Continue Keppra 500 mg BID - Seizure precautions - CT head reviewed. - Non compliance with medical therapy is the most likely etiology and will monitor for now. No need for MRI brain. - Baseline function, no need for neurology consultation. # CAD - Unable to obtain old records - Resume home medications. # PAF - Most likely diagnosis and patient is on Eliquis as outpatient. - Will follow up and try to confirm information. 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 - CM consult and follow up - Patient has used ALL SNF days and need to find a way to place at a safe environment. - PLACEMENT PENDING and NEEDS SW/CM active input. Medically stable for discharge. - # Full code Subjective ROS Limited/Unobtainable: No Allergies: Coded Allergies: CODEINE (Unverified Allergy, Unknown, 10/16/18) Subjective patient says " i would like to leave". Discussed with patient his placement status. otherwise, patient has no complaints; denies seizures, sob, cp. Objective Last 24 Hour Vital Signs Date Time Temp Pulse Resp B/P (MAP) Pulse Ox O2 Delivery O2 Flow Rate FiO2 10/21/18 08:40 67 136/60 10/21/18 08:39 136/60 10/21/18 08:00 97.9 67 16 136/60 (85) 97 10/21/18 04:00 97.9 50 18 133/69 (90) 98 10/21/18 04:00 57 10/21/18 00:00 97.3 55 18 127/68 (87) 95 10/21/18 00:00 53 10/20/18 21:00 Room Air 10/20/18 20:00 97.7 64 19 152/79 (103) 96 10/20/18 20:00 51 10/20/18 17:50 143/77 10/20/18 16:00 52 10/20/18 16:00 98.0 59 19 115/75 (88) 98 10/20/18 12:00 55 10/20/18 12:00 98.2 54 19 129/72 (91) 98 Intake and Output 10/20/18 10/21/18 19:00 07:00 Intake Total 1500 ml 360 ml Output Total 900 ml Balance 1500 ml -540 ml Intake Oral 1500 ml 360 ml Output Urine Total 900 ml # Voids 4 4 Laboratory Tests 10/21/18 04:40: White Blood Count 6.3, Red Blood Count 3.55L, Hemoglobin 11.2L, Hematocrit 34.4L , Mean Corpuscular Volume 97, Mean Corpuscular Hemoglobin 31.7H, Mean Corpuscular Hemoglobin Concent 32.7, Red Cell Distribution Width 12.2, Platelet Count 212, Mean Platelet Volume 7.4, Neutrophils (%) (Auto) 61.2, Lymphocytes (% ) (Auto) 26.2, Monocytes (%) (Auto) 8.9, Eosinophils (%) (Auto) 3.1H, Basophils (%) (Auto) 0.7, Sodium Level 140, Potassium Level 4.0, Chloride Level 108H, Carbon Dioxide Level 25, Anion Gap 7, Blood Urea Nitrogen 27H, Creatinine 1.8H, Estimat Glomerular Filtration Rate , Glucose Level 142H, Calcium Level 9.0 Height (Feet): 6 Height (Inches): 1.00 Weight (Pounds): 206 General Appearance: WD/WN, no apparent distress, lethargic EENT: PERRL/EOMI Neck: non-tender, normal alignment, supple Cardiovascular: normal rate, regular rhythm, no JVD Respiratory/Chest: lungs clear, normal breath sounds, no respiratory distress Abdomen: normal bowel sounds, non tender, soft Extremities: normal range of motion, non-tender Edema: no edema noted Arm (L), no edema noted Arm (R), no edema noted Leg (L), no edema noted Leg (R), no edema noted Pedal (L), no edema noted Pedal (R), no edema noted Generalized Neurologic: wool and pelt grader II-XII grossly normal Charlotte Drake DO Oct 21, 2018 09:33
[2018-10-21 12:00] VITALS: BP 141/81
--- NOTE | 2018-10-21 15:16 | NUR ---
RD ASSESSMENT & RECOMMENDATIONS SEE CARE ACTIVITY FOR COMPLETE ASSESSMENT DAILY ESTIMATED NEEDS: Needs based on Cardiac, renal 86kg adj 25-30 kcals/kg 3280-2889 total kcals 1-1.2 g protein/kg 86-103 g total protein 25-30 mL/kg 3909-9494 total fluid mLs NUTRITION DIAGNOSIS: Decreased sodium needs r/t renal and cardiac status as evidenced by pt w/ h/o CKD, h/o CVA, BP elev currently (141/81). [facility] + LOW NA PO DIET RECOMMENDATIONS: REC LOW NA DIET ONLY (texture per BOOM CAT OPERATOR) ADDITIONAL RECOMMENDATIONS: 1) Monitor renal fxn need for renal diet 2) Added snacks BID in b/w meals 3) BOOM CAT OPERATOR re-eval for texture upgrade
[2018-10-21 16:00] VITALS: BP 153/77
--- NOTE | 2018-10-21 19:34 | NUR ---
HAND-OFF: Report given to Raul Loera.Patient stable. Plan of care endorsed
--- NOTE | 2018-10-21 19:35 | NUR ---
NURSE NOTES: received pt from DALLAS Smith. Pt is awake and resting in bed in no acute distress. IV site intact. Bed locked in lowest position, call light within reach. Will continue with plan of care.
[2018-10-21 20:00] VITALS: BP 133/70
--- NOTE | 2018-10-21 20:52 | Cardiology Report ---
APPROVED REPORT EKG Measurement Heart [id number] OH [id number] Sinus rhythm with premature atrial complexes Left axis deviation Abnormal ECG
[2018-10-22] VITALS: BP 112/58
[2018-10-22 04:00] VITALS: BP 140/63
[2018-10-22] MEDS: NovoLOG Insulin Flexpen SUBQ SCH ×4 (06:30→20:42)
[2018-10-22] MEDS: HYDROcodone/Acetamin 5/325 tab ORAL PRN ×3 (07:07→19:20)
--- NOTE | 2018-10-22 07:32 | NUR ---
HAND-OFF: Report given to DALLAS Beckett. Pt resting in bed in no acute distress. Iv site intact. Bed locked in lowest position, call light within reach. Endorsed plan of care.
--- NOTE | 2018-10-22 07:34 | NUR ---
NURSE NOTES: Received report from DALLAS Loera. The patient is resting on the bed without acute distress or shortness of breath. The patient's bed in the lowest position, call light in reach, and fall, aspiration, and seizure precaution reinforced. IV site is intact and patent. Will continue plan of care.
[2018-10-22 08:00] VITALS: BP 142/79
--- NOTE | 2018-10-22 08:46 | General Progress Note ---
Assessment/Plan Status: stable Assessment/Plan: 73 y/o AA male admitted for acute onset of seizure after non medical therapy for 3 days. # Seizure disorder - Continue Keppra 500 mg BID - Seizure precautions - CT head reviewed. - Non compliance with medical therapy is the most likely etiology and will monitor for now. No need for MRI brain. - Baseline function, no need for neurology consultation. # CAD - Unable to obtain old records - Resume home medications. # PAF - Most likely diagnosis and patient is on Eliquis as outpatient. - Will follow up and try to confirm information. 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 # Full code # Dispo - CM consult and follow up - Patient has used ALL SNF days and need to find a way to place at a safe environment. - PLACEMENT PENDING and NEEDS SW/CM active input. Medically stable for discharge. Subjective Allergies: Coded Allergies: CODEINE (Unverified Allergy, Unknown, 10/16/18) Subjective patient complains of diaper not being changed, however discussed with RN who informed that patient is having diaper changed. Patient appears to have some encephalopathy. asks for asa to be added to med list when he is already getting it Objective Last 24 Hour Vital Signs Date Time Temp Pulse Resp B/P (MAP) Pulse Ox O2 Delivery O2 Flow Rate FiO2 10/22/18 04:00 57 10/22/18 04:00 98.0 57 18 140/63 (88) 100 10/22/18 00:00 98.2 80 20 112/58 (76) 96 10/22/18 00:00 80 10/21/18 21:00 Room Air 10/21/18 20:00 77 10/21/18 20:00 98.4 77 20 133/70 (91) 98 10/21/18 17:34 59 10/21/18 17:13 141/81 10/21/18 16:35 98.2 10/21/18 16:00 98.1 61 18 153/77 (102) 98 10/21/18 13:15 61 10/21/18 12:00 98.2 61 18 141/81 (101) 98 10/21/18 09:00 Room Air Intake and Output 10/21/18 10/22/18 19:00 07:00 Intake Total 580 ml Balance 580 ml Intake Oral 580 ml # Voids 5 Height (Feet): 6 Height (Inches): 1.00 Weight (Pounds): 206 General Appearance: lethargic EENT: PERRL/EOMI, TMs normal Neck: non-tender, normal alignment, supple Cardiovascular: normal rate, regular rhythm, no JVD Respiratory/Chest: lungs clear, normal breath sounds, no respiratory distress Abdomen: non tender, soft, no organomegaly, no mass Extremities: normal range of motion, non-tender, normal inspection Edema: no edema noted Arm (L), no edema noted Arm (R), no edema noted Leg (L), no edema noted Leg (R), no edema noted Pedal (L), no edema noted Pedal (R), no edema noted Generalized Neurologic: can closing machine tender II-XII grossly normal Charlotte Drake DO Oct 22, 2018 08:46
[2018-10-22] MEDS: Aspirin EC 81mg tab ORAL SCH (09:08)
[2018-10-22] MEDS: Eliquis 5mg tablet ORAL SCH ×2 (09:08→18:19)
[2018-10-22] MEDS: Atorvastatin 80mg tab ORAL SCH (09:09)
[2018-10-22] MEDS: Miralax 17gm pkt ORAL SCH ×2 (09:09→18:19)
--- NOTE | 2018-10-22 10:21 | NUR ---
NURSE NOTES: The patient is stable without acute distress or shortness of breath. Waiting for business case analyst for the placement in safe environment.
[2018-10-22 12:00] VITALS: BP 133/82
--- NOTE | 2018-10-22 15:00 | NUR ---
NURSE NOTES: Spoke with Delia, the media planner, regarding placement for the patient. The media planner and adult protective caseworker is working on the placement. The patient and family member was informed by Delia.
[2018-10-22 16:00] VITALS: BP 117/68
--- NOTE | 2018-10-22 16:49 | NUR ---
CASE MANAGEMENT:REVIEW 10/22/18 SI: SEIZURE. PAFIB 98.3 62 20 117/68 98% ON RA IS: PEPCID PO QD NORVASC PO QD ASA PO QD KEPPRA PO Q12 ELIQUIS PO BID NEURONTIN PO BID : TELEMETRY STATUS DCP: HOMELESS
--- NOTE | 2018-10-22 16:52 | NUR ---
DISCHARGE PLANNING PATIENT HAS EXHAUSTED HIS MEDICARE DAYS THUS HE WILL NEED TO GO TO SNF UNDER HIS [facility] K[facility]IR DOES NOT HAVE A CONTRACT WITH [facility] SO PATIENT WILL NEED TO BE REFERRED TO A [facility] CONTRACTED FACILITY
--- NOTE | 2018-10-22 19:14 | NUR ---
NURSE NOTES: Received pt from DALLAS Beckett. Pt is awake and resting in bed in no acute distress. Iv site intact. Bed locked in lowest position, call light within reach. Will continue with plan of care.
[2018-10-22 20:00] VITALS: BP 132/78
[2018-10-23] VITALS: BP 135/75
[2018-10-23 04:00] VITALS: BP 146/80
[2018-10-23] MEDS: HYDROcodone/Acetamin 5/325 tab ORAL PRN ×3 (04:59→17:58)
[2018-10-23] MEDS: NovoLOG Insulin Flexpen SUBQ SCH ×4 (06:02→20:43)
--- NOTE | 2018-10-23 07:09 | NUR ---
HAND-OFF: Report given to DALLAS Beckett. Pt is awake and resting in bed in no acute distress. IV site intact and patent. Bed locked in lowest position, call light within reach. Endorsed plan of care.
--- NOTE | 2018-10-23 07:10 | NUR ---
NURSE NOTES: Received report from DALLAS Loera. The patient is resting on the bed without acute distress or shortness of breath. The patient's bed in the lowest position, call light in reach, and fall, aspiration and seizure precaution reinforced. IV site intact and patent. Pending for placement and case management and community planner on the case. Will continue plan of care.
[2018-10-23 08:00] VITALS: BP 143/77
[2018-10-23] MEDS: Eliquis 5mg tablet ORAL SCH ×2 (08:33→17:38)
[2018-10-23] MEDS: Aspirin EC 81mg tab ORAL SCH (08:33)
[2018-10-23] MEDS: Atorvastatin 80mg tab ORAL SCH (08:34)
[2018-10-23] MEDS: Miralax 17gm pkt ORAL SCH ×2 (08:34→17:38)
[2018-10-23] MEDS ORDERED: GABAPENTIN400 MG ORAL (10:03)
--- NOTE | 2018-10-23 10:05 | Discharge Instructions ---
Discharge Instructions Discharge Instructions Follow up with: pcp Call MD/Return to Hospital if: intractable fevers, pain. seizures Services at Discharge: physical therapy Diet: cardiac 2 GM Na, low fat Resume Normal Activity?: Yes Activity: resume normal activities For Congestive Heart Failure Reminder Report to your physician any weight gain of 5 pounds or more in one week. Lina Valdes MD Oct 23, 2018 10:04
--- NOTE | 2018-10-23 10:41 | NUR ---
NURSE NOTES: Per Dr. Valdes, the patient will be placed to [facility] under insurance. Dr. Valdes ordered the patient to be discharged. Will confirm the placement with telemarketing manager and will work on discharge order. Will continue plan of care.
--- NOTE | 2018-10-23 10:53 | NUR ---
DISCHARGE PLANNING Discharge order noted Patient has been referred to ; [facility] [phone] [facility] [phone] [facility] [phone] Await Acceptance and Room Number
--- NOTE | 2018-10-23 11:29 | NUR ---
NURSE NOTES: Per Trisha, insurance took back for placement for [facility]. Needs to find the new place. Will wait for the respond from the protective services case worker. Will continue plan of care.
[2018-10-23 12:00] VITALS: BP 132/74
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
--- NOTE | 2018-10-23 15:44 | NUR ---
DISCHARGE ORDER NOTED Patient has been accepted to; [facility] [address] [place] [address] Bed: 18-C Skilled [phone] for Nurse to Nurse report [facility] ETA for transportation: 20:00 DCP unable to reach family, voicemail message left of current discharge plans.
[2018-10-23 16:00] VITALS: BP 137/74
--- NOTE | 2018-10-23 16:22 | NUR ---
NURSE NOTES: Informed regarding discharge order and placement to [facility] [address] Room 18[address] @2000 to the patient and Debbie, sister. The patient and sister verbalized understanding.
--- NOTE | 2018-10-23 16:24 | NUR ---
NURSE NOTES: Gave report and course of hospitalization to José Miguel, who is a receiving nurse @ [facility] [address]. Informed that transporter will arrive 1999. Will continue plan of care.
--- NOTE | 2018-10-23 18:51 | General Progress Note ---
Assessment/Plan Status: stable Assessment/Plan: Assessment/Plan: 73 y/o AA male admitted for acute onset of seizure after non medical therapy for 3 days. # Seizure disorder - Continue Keppra 500 mg BID - Seizure precautions - CT head reviewed. - Non compliance with medical therapy is the most likely etiology and will monitor for now. No need for MRI brain. - Baseline function, no need for neurology consultation. # CAD - Unable to obtain old records - Resume home medications. # PAF - Most likely diagnosis and patient is on Eliquis as outpatient. - Will follow up and try to confirm information. 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 # Full code # Dispo - CM consult and follow up - Patient has used ALL SNF days and need to find a way to place at a safe environment. - PLACEMENT PENDING and NEEDS SW/CM active input. Medically stable for discharge. Subjective Date patient seen: Oct 23, 2018 ROS Limited/Unobtainable: No Allergies: Coded Allergies: CODEINE (Unverified Allergy, Unknown, 10/16/18) All Systems: reviewed and negative except above Subjective No acute overnight events, pt with no complaints, states he feels well. Pending placement Objective Last 24 Hour Vital Signs Date Time Temp Pulse Resp B/P (MAP) Pulse Ox O2 Delivery O2 Flow Rate FiO2 10/23/18 17:37 135/64 10/23/18 16:00 98.1 63 20 137/74 (95) 95 10/23/18 12:00 70 10/23/18 12:00 98.4 64 20 132/74 (93) 95 10/23/18 09:00 Room Air 10/23/18 08:35 57 143/77 10/23/18 08:33 143/77 10/23/18 08:00 98.4 57 20 143/77 (99) 96 10/23/18 08:00 64 10/23/18 04:00 53 10/23/18 04:00 97.9 53 19 146/80 (102) 100 10/23/18 00:00 98.3 58 19 135/75 (95) 97 10/23/18 00:00 58 10/22/18 21:00 Room Air 10/22/18 20:00 60 10/22/18 20:00 98.0 60 19 132/78 (96) 98 Intake and Output 10/22/18 10/23/18 19:00 07:00 Intake Total 770 ml Output Total 700 ml 950 ml Balance 70 ml -950 ml Intake Oral 770 ml Output Urine Total 700 ml 950 ml # Voids 1 4 Height (Feet): 6 Height (Inches): 1.00 Weight (Pounds): 211 Objective General Appearance: calm, answering questions appropriately EENT: PERRL/EOMI, TMs normal Neck: non-tender, normal alignment, supple Cardiovascular: normal rate, regular rhythm, no JVD Respiratory/Chest: lungs clear, normal breath sounds, no respiratory distress Abdomen: non tender, soft, no organomegaly, no mass Extremities: normal range of motion, non-tender, normal inspection Edema: no edema noted Arm (L), no edema noted Arm (R), no edema noted Leg (L), no edema noted Leg (R), no edema noted Pedal (L), no edema noted Pedal (R), no edema noted Generalized Neurologic: retort pre cooker II-XII grossly normal Lina Valdes MD Oct 23, 2018 18:51
--- NOTE | 2018-10-23 19:33 | NUR ---
HAND-OFF: Report given to DALLAS Myers. Informed about ETA of transporter @1999. Informed that report given to José Miguel @ [facility] [address] to room 18C. The patient's bed in the lowest position, call light in reach, and fall, aspiration, and seizure precaution reinforced. Endorsed plan of care.
--- NOTE | 2018-10-23 19:34 | NUR ---
NURSE NOTES: Got report from Sophy HAYNES. Pt in stable condition. Denies any pain. No s/s of distress or discomfort noted. Pt resting in bed comfortably. Bed in low and locked position, call light within reach, bedside table within reach. Per AM DALLAS Beckett pt is going to be discharged at 1999 to [facility] and will be transported via [facility]. Continue to monitor.
[2018-10-23 20:00] VITALS: BP 145/90
[2018-10-23 20:47] LABS: ANION GAP 12 mmol/L (5-15); BLOOD UREA NITROGEN 26 mg/dL (7-18); CARBON DIOXIDE 24 MMOL/L (21-32); CHLORIDE 104 MMOL/L (98-107); CREATININE 1.8 MG/DL (0.55-1.30); POTASSIUM 4.4 MMOL/L (3.5-5.1); SODIUM 140 MMOL/L (136-145)
--- NOTE | 2018-10-23 21:45 | NUR ---
NURSE NOTES [facility] came to pickup pt to be discharged to [facility]. Pt in stable condition.
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
== END 2018-10-23 22:06 | disposition short-term general hospital (02) | DRG 101 ==
LOC: EDBD 09:20 → EMR 10:01 → EDBEDREQ 11:06 → 2E 11:27 → INTOOBSV 11:27 → EDBEDREQ 12:13 → OBSVTOIN 19:42
DX: G40.909 Epilepsy, unspecified, not intractable, without status epilepticus (principal); I25.10 Atherosclerotic heart disease of native coronary artery without angina pectoris; I48.0 Paroxysmal atrial fibrillation; Z91.14 Patient's other noncompliance with medication regimen; R53.1 Weakness; Z88.6 Allergy status to analgesic agent; N18.3 Chronic kidney disease, stage 3 (moderate); Z79.82 Long term (current) use of aspirin; Z59.0 Homelessness; Z79.01 Long term (current) use of anticoagulants
CPT/HCPCS: 36415; 70450; 71045; 80048; 80053; 80299; 80329; 81003; 82550; 82553; 82962; 83036; 83605; 83690; 83880; 84439; 84443; 84484; 85025; 85610; 85730; 87040; 87081; 92610; 93005; 96360; 99285; J1815

== ENCOUNTER 2018-12-28 06:52 | Inpatient (IN) | payer MEDICARE, OTHER ==
[2018-12-28] VITALS (16 sets, daily range): BP systolic 103–149; BP diastolic 38–99
[~2018-12-28] VITALS: Ht 172.7 cm; Wt 99.8 kg
[~2018-12-28 06:52] MED LIST changes: +AMLODIPINE BESYL5 MG ORAL; +ASPIRIN EC81 MG ORAL; +ATORVASTATIN CA40 MG ORAL; +CATAPRES0.1 MG ORAL; +ELIQUIS5 MG PO; +GABAPENTIN300 MG ORAL; +GABAPENTIN400 MG ORAL; +LEVETIRACETAM500 MG ORAL; +METOPROLOL TART25 MG ORAL; +NORCO 10-325 T1 EACH ORAL
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
[2018-12-28] MEDS ORDERED: SENNA8.6 M2 PO (07:17)
[2018-12-28] MEDS ORDERED: TYLENOL325 MG ORAL (07:17)
[2018-12-28] MEDS ORDERED: NORCO 5-325 TA1 EACH ORAL (07:18)
[2018-12-28] MEDS ORDERED: MIRALAX17 G2 ORAL (07:18)
--- NOTE | 2018-12-28 07:18 | NUR ---
HAND-OFF: Report given to Cindy.
--- NOTE | 2018-12-28 07:20 | NUR ---
ED Nurse Note: Xray at bedside.
--- NOTE | 2018-12-28 07:26 | NUR ---
ED Nurse Note: Received report from DALLAS Douglas. Observed patient in bed, moans to painful stimuli and shaking. On cardiac care unit nurse, shows SR at this time. On room air, no respiratory distress, saturating 100%. VSS stable. Jordan catheter intact and draining well. IV on left AC 20g intact and patent with fluids running at prescribed rate. Will continue to monitor patient.
--- NOTE | 2018-12-28 07:30 | NUR ---
ED Nurse Note: Patient was picked up for CT of the head, in stable condition.
[2018-12-28 07:45] LABS: APPEARANCE,URINE CLEAR; BILIRUBIN, URINE NEGATIVE (NEGATIVE); COLOR,URINE PALE YELLOW; GLUCOSE, URINE (UA) 4+ (NEGATIVE); KETONES,URINE 2+ (NEGATIVE); LEUKOCYTE ESTERASE ,URINE NEGATIVE (NEGATIVE); NITRITE,URINE NEGATIVE (NEGATIVE); PH,URINE 5 (4.5-8.0); PROTEIN,URINE 2+ (NEGATIVE); UROBILINOGEN,URINE NORMAL MG/DL (0.0-1.0)
--- NOTE | 2018-12-28 07:48 | NUR ---
ED Nurse Note: patient back from CT, in stable condition. placed back on property technician. IV fluids ongoing.
[2018-12-28 07:51] LABS: HEMATOCRIT 53.1 % (42.0-52.0); HEMOGLOBIN 15.2 G/DL (14.2-18.0); MEAN CORPUSCULAR VOLUME 104 FL (80-99); PLATELET COUNT 185 K/UL (150-450); RED BLOOD COUNT 5.12 M/UL (4.70-6.10); RED CELL DISTRIBUTION WIDTH 12.6 % (11.6-14.8); WHITE BLOOD COUNT 15.5 K/UL (4.8-10.8)
[2018-12-28 08:05] LABS: ALANINE AMINOTRANSFERASE 15 U/L (12-78); ALBUMIN 3.9 G/DL (3.4-5.0); ALBUMIN/GLOBULIN RATIO 0.8 (1.0-2.7); ALKALINE PHOSPHATASE 97 U/L (46-116); ANION GAP 20 mmol/L (5-15); ASPARTATE AMINO TRANSFERASE 12 U/L (15-37); BILIRUBIN,TOTAL 0.3 MG/DL (0.2-1.0); BLOOD UREA NITROGEN 96 mg/dL (7-18); CALCIUM 9.7 MG/DL (8.5-10.1); CARBON DIOXIDE 17 MMOL/L (21-32); CHLORIDE 100 MMOL/L (98-107); CKMB 3.8 NG/ML (0.0-3.6); CREATINE KINASE 272 U/L (26-308); CREATININE 5.7 MG/DL (0.55-1.30); SODIUM 136 MMOL/L (136-145)
--- NOTE | 2018-12-28 08:06 | NUR ---
ED Nurse Note: Debbie/sister/emergency contact:
[2018-12-28 08:17] LABS: POTASSIUM 7.1 MMOL/L (3.5-5.1)
[2018-12-28] MEDS ORDERED: Calcium Gluconate 1gm/10ml vial IVP ONE (08:30)
[2018-12-28] MEDS ORDERED: Piperacillin/Tazobactam 3.375 GM in NS 110 ML IVPB ONE (08:30)
[2018-12-28] MEDS ORDERED: Insulin Human Regular 100units/ml 3ml IV ONE (08:30)
--- NOTE | 2018-12-28 08:42 | Diagnostic Imaging Report ---
EXAM: CT Head Without Intravenous Contrast CLINICAL HISTORY: AMS TECHNIQUE: Axial computed tomography images of the head brain without intravenous contrast. CTDI is 73.90 mGy and DLP is 2408.10 mGy-cm. One or more of the following dose reduction techniques were used: automated exposure control, adjustment of the mA and or kV according to patient size, use of iterative reconstruction technique. COMPARISON: CT head dated 10 16 18 FINDINGS: Brain: Generalized parenchymal volume loss, likely age-related. Periventricular white matter hypodensities. No evidence of acute intracranial hemorrhage. No mass effect or midline shift. Ventricles: Unremarkable. No ventriculomegaly. Bones joints: Unremarkable. No acute fracture. Soft tissues: Unremarkable. Sinuses: Unremarkable as visualized. No acute sinusitis. Mastoid air cells: Unremarkable as visualized. No mastoid effusion. IMPRESSION: 1. No acute intracranial findings. 2. Periventricular white matter hypodensities, likely related to chronic small vessel disease changes. 3. Generalized cerebral parenchymal volume loss, likely age-related.
[2018-12-28] MEDS ORDERED: Sodium Bicarbonate 50ml Carp IV ONE (08:45)
--- NOTE | 2018-12-28 09:00 | Emergency Room Report ---
History of Present Illness General Chief Complaint: Altered Level of Consciousness Source: Medical Record, EMS Present Illness HPI 73-year-old male presents ED for evaluation. Brought in by EMS for altered level of consciousness. Patient was not responsive this morning. Last known awake time was last night. Patient is arousable to sternal rub and says his name only. Accu-Chek critically high. History of CVA recently with residual weakness. No reported fevers or chills. Unable to provide any additional history at this time. No signs of distress upon arrival. No other aggravating relieving factors. No other associated symptoms Allergies: Coded Allergies: CODEINE (Unverified Allergy, Unknown, 10/16/18) Patient History Past Medical History: DM, CVA/TIA, seizures Past Surgical History: none Pertinent Family History: none Social History: Denies: smoking, alcohol use, drug use Immunizations: UTD Reviewed Nursing Documentation: PMH: Agreed; PSxH: Agreed Nursing Documentation-PMH Hx Hypertension: Yes - hyperlipidemia Hx Diabetes: Yes Hx Cancer: No Hx Gastrointestinal Problems: No - dysphagia, muscle weakness Hx Transient Ischemic Attacks: Yes Hx Seizures: Yes - epilepsy Hx Weakness: Yes Review of Systems All Other Systems: limited Physical Exam Vital Signs Date Time Temp Pulse Resp B/P (MAP) Pulse Ox O2 Delivery O2 Flow Rate FiO2 12/28/18 06:48 18 103/38 (59) 97 Room Air 12/28/18 07:30 97.0 82 Sp02 EP Interpretation: reviewed, normal General Appearance: no apparent distress, lethargic Head: normocephalic Eyes: bilateral eye normal inspection, bilateral eye PERRL ENT: normal ENT inspection Neck: normal inspection Respiratory: chest non-tender, lungs clear, normal breath sounds, speaking full sentences Cardiovascular #1: regular rate, rhythm, no edema Gastrointestinal: normal bowel sounds, non tender, soft, non-distended, no guarding, no rebound Rectal: deferred Genitourinary: no CVA tenderness Musculoskeletal: normal inspection Neurologic: other - altered Psychiatric: other - altered Skin: no rash Lymphatic: normal inspection Procedures Critical Care Time Critical Care Time i. I feel this is a highly complex case requiring extensive working including EKG/Rhythm strip, Xray/CT/US, Blood/urine lab work, repeat exams while in ED, and administration of strong opiates/narcotics for pain control, admission to hospital or close patient follow up. Total time: 60 min bedside evaluation and treatment excludes procedures (EKG). Reason for critical care: AMS, hyperkalemia, renal failure, DKA, elevated troponin, sepsis Possible complications: hypotension, hypertension, ID, shock, arrhythmias, metabolic acidosis, end organ damage, respiratory failure. Interventions: Labs, IV fluids, EKG, chest x-ray, CT head. Insulin bolus, insulin drip. Calcium. Fluid bolusing. Broad-spectrum antibiotics. discussion with solution consultant Course: Presenting with altered level of consciousness. Last known last night. Accu-Chek critically high. Labs show leukocytosis. Potassium 7.1. Acidosis. glucose greater than 1500. Renal failure. CT head negative. given insulin bolus + drip. given calcium. given IVFS. given broad spectrum abx. discussed with solution consultant. Consultations: nursing staff, EMS, family Performed by: Dr Wilcox Tolerated well condition = critical j. because of unstable vital signs this patient had a condition that could potentially threaten life or limb. I feel this is a critical patient who required my full attention while patient was considered critical. Total Critical Care Time excluding procedures was greater than 60 minutes Medical Decision Making Diagnostic Impression: Primary Impression: DKA (diabetic ketoacidoses) Qualified Codes: E13.11 - Other specified diabetes mellitus with ketoacidosis with coma Additional Impressions: Hyperkalemia Renal failure Qualified Codes: N17.9 - Acute kidney failure, unspecified Sepsis Qualified Codes: A41.9 - Sepsis, unspecified organism Elevated troponin ER Course Hospital Course 73-year-old male presenting to ED with altered mental status, glucometer critically high Differential diagnoses include: ETOH/drug ingestion, sepsis, DKA Clinical course Patient placed on stretcher. On gambling monitor. After initial history and physical I ordered labs, IV fluids, urine and chest Xray, CT head Labs-glucose greater than 1500, anion gap elevated, bicarbonate low, BUN/ creatinine markedly elevated, K 7.1. Leukocytosis noted. trop 0.103 UA unremarkable EKG - peaked twaves in anterior leads, twave inversions in lateral leads Chest x-ray unremarkable CT head negative ABG shows significant acidosis suggestive of DKA 30 cc/kg fluid bolus along with maintenance fluids. Insulin bolus given. Insulin drip started. Calcium given. broad spectrum antibiotics given. given rectal aspirin. discussed case with solution consultant Case discussed with Dr. Warner and he agreed to accept the patient to his service for further care and support i. I feel this is a highly complex case requiring extensive working including EKG/Rhythm strip, Xray/CT/US, Blood/urine lab work, repeat exams while in ED, and administration of strong opiates/narcotics for pain control, admission to hospital or close patient follow up. j. because of unstable vital signs this patient had a condition that could potentially threaten life or limb. I feel this is a critical patient who required my full attention while patient was considered critical. Total Critical Care Time excluding procedures was greater than 60 minutes diagnosis - DKA, hyperkalemia, renal failure, sepsis, elevated troponin admitted to ICU in critical condition Labs Test 12/28/18 06:20 12/28/18 08:30 12/28/18 08:46 12/28/18 10:30 White Blood Count 15.5 K/UL (4.8-10.8) Red Blood Count 5.12 M/UL (4.70-6.10) Hemoglobin 15.2 G/DL (14.2-18.0) Hematocrit 53.1 % (42.0-52.0) Mean Corpuscular Volume 104 FL (80-99) Mean Corpuscular Hemoglobin 29.7 PG (27.0-31.0) Mean Corpuscular Hemoglobin Concent 28.7 G/DL (32.0-36.0) Red Cell Distribution Width 12.6 % (11.6-14.8) Platelet Count 185 K/UL (150-450) Mean Platelet Volume 8.3 FL (6.5-10.1) Neutrophils (%) (Auto) % (45.0-75.0) Lymphocytes (%) (Auto) % (20.0-45.0) Monocytes (%) (Auto) % (1.0-10.0) Eosinophils (%) (Auto) % (0.0-3.0) Basophils (%) (Auto) % (0.0-2.0) Differential Total Cells Counted 100 Neutrophils % (Manual) 89 % (45-75) Lymphocytes % (Manual) 8 % (20-45) Monocytes % (Manual) 3 % (1-10) Eosinophils % (Manual) 0 % (0-3) Basophils % (Manual) 0 % (0-2) Band Neutrophils 0 % (0-8) Platelet Estimate Adequate Platelet Morphology Normal Anisocytosis 1+ Macrocytosis 1+ Urine Color Pale yellow Urine Appearance Clear Urine pH 5 (4.5-8.0) Urine Specific [place] 1.015 (1.005-1.035) Urine Protein 2+ (NEGATIVE) Urine Glucose (UA) 4+ (NEGATIVE) Urine Ketones 2+ (NEGATIVE) Urine Blood 2+ (NEGATIVE) Urine Nitrite Negative (NEGATIVE) Urine Bilirubin Negative (NEGATIVE) Urine Urobilinogen Normal MG/DL (0.0-1.0) Urine Leukocyte Esterase Negative (NEGATIVE) Urine RBC 5-10 /HPF (0 - 0) Urine WBC 0-2 /HPF (0 - 0) Urine Squamous Epithelial Cells Few /LPF (NONE/OCC) Urine Amorphous Sediment Few /LPF (NONE) Urine Bacteria Few /HPF (NONE) Sodium Level 136 MMOL/L (136-145) Potassium Level 7.1 MMOL/L (3.5-5.1) Chloride Level 100 MMOL/L (98-107) Carbon Dioxide Level 17 MMOL/L (21-32) Anion Gap 20 mmol/L (5-15) Blood Urea Nitrogen 96 mg/dL (7-18) Creatinine 5.7 MG/DL (0.55-1.30) Estimat Glomerular Filtration Rate mL/min (>60) Glucose Level 1501 MG/DL (74-106) Lactic Acid Level 2.30 mmol/L (0.4-2.0) 2.60 mmol/L (0.66-2.22) Calcium Level 9.7 MG/DL (8.5-10.1) Magnesium Level 3.7 MG/DL (1.8-2.4) Total Bilirubin 0.3 MG/DL (0.2-1.0) Aspartate Amino Transf (AST/SGOT) 12 U/L (15-37) Alanine Aminotransferase (ALT/SGPT) 15 U/L (12-78) Alkaline Phosphatase 97 U/L (46-116) Total Creatine Kinase 272 U/L (26-308) Creatine Kinase MB 3.8 NG/ML (0.0-3.6) Creatine Kinase MB Relative Index 1.3 Troponin I 0.103 ng/mL (0.000-0.056) Pro-B-Type Natriuretic Peptide 1640 pg/mL (0-125) Total Protein 8.9 G/DL (6.4-8.2) Albumin 3.9 G/DL (3.4-5.0) Globulin 5.0 g/dL Albumin/Globulin Ratio 0.8 (1.0-2.7) Acetone Level Positive-small (NEGATIVE) Arterial Blood pH 7.169 (7.350-7.450) Arterial Blood Partial Pressure CO2 37.1 mmHg (35.0-45.0) Arterial Blood Partial Pressure O2 86.5 mmHg (75.0-100.0) Arterial Blood HCO3 13.2 mmol/L (22.0-26.0) Arterial Blood Oxygen Saturation 95.4 % (95-100) Arterial Blood Base Excess -14.5 (-2-2) Nehemias Test Positive Venous Blood pH 7.203 Venous Blood Partial Pressure CO2 39.9 Venous Blood Partial Pressure O2 47.1 Venous Blood HCO3 15.4 Venous Blood Oxygen Saturation 77.7 EKG Diagnostic Results Rate: normal Rhythm: NSR ST Segments: other - peaked twaves in anterior leads. twave inversion in lateral leads ASA given to the pt in ED: Yes Rhythm Strip Diag. Results EP Interpretation: yes Rhythm: NSR, no PVC's, no ectopy Chest X-Ray Diagnostic Results Chest X-Ray Diagnostic Results : Chest X-Ray Ordered: Yes # of Views/Limited/Complete: 1 View Indication: Other - AMS EP Interpretation: Yes Interpretation: no consolidation, no effusion, no pneumothorax, no acute cardiopulmonary disease Impression: No acute disease Electronically Signed by: Electronically signed by Pepe Wilcox MD CT/MRI/US Diagnostic Results CT/MRI/US Diagnostic Results : Imaging Test Ordered: CT Head Impression no acute process Last Vital Signs Date Time Temp Pulse Resp B/P (MAP) Pulse Ox O2 Delivery O2 Flow Rate FiO2 12/28/18 07:30 97.0 82 18 126/46 97 Room Air Status: improved Disposition: ADMITTED INPATIENT Condition: Critical Referrals: Milagros Flanagan MD (PCP) Pepe Wilcox MD Dec 28, 2018 09:00
--- NOTE | 2018-12-28 09:07 | Diagnostic Imaging Report ---
EXAM: XR Chest, 1 View CLINICAL HISTORY: AMS TECHNIQUE: Frontal view of the chest. COMPARISON: Chest x-ray dated 10 16 18 FINDINGS: Lungs: Subsegmental atelectasis versus infiltrates in the medial lung bases. The lungs otherwise appear clear. Pleural space: Unremarkable. The costophrenic angles are sharp. No visible pneumothorax. Heart: Unremarkable. No cardiomegaly. Mediastinum: Unremarkable. Bones joints: Unremarkable. Tubes, lines and devices: Telemetry leads overlie the thorax. IMPRESSION: Subsegmental atelectasis versus infiltrates in the medial lung bases.
--- NOTE | 2018-12-28 09:10 | NUR ---
ED Nurse Note: IV on right hand 20g started, IV fluids ongoing as ordered. Blood drawn and sent to lab for repeat tests. Pt aaox0 at this time. Medications given per ERMD order. Will continue to monitor.
[2018-12-28] MEDS: levETIRAcetam 500mg/NS100ml 100 ML IVPB SCH ×2 (10:43→20:47)
[2018-12-28] MEDS ORDERED: Eliquis 5mg tablet ORAL SCH (10:45)
--- NOTE | 2018-12-28 11:20 | NUR ---
ED Nurse Note: Report given to Judy Keys RN via phone.
--- NOTE | 2018-12-28 11:23 | NUR ---
TRANSFER TO FLOOR: Patient transferred to ICU as ordered, per Dr Flanagan. Report given to Judy Keys RN. Transferred by DALLAS Sebastian and CHRIS Dawn protocol.
--- NOTE | 2018-12-28 11:30 | NUR ---
NURSE NOTES: Report received from DALLAS Yanes. Pt is lethargic and able to wake up with tactile stimuli. Unable to follow commands. Non-verbal. Able to move extremities on his down at times. On RA. Sinus rhythm on media monitor. IV to right hand G20 and left AC G20 patent and asymptomatic. Pt is on Insulin drip at 12 units and NS at 150cc/hr. Jordan in place draining to gravity. Bed in lowest position. Side rails up x3. Bed exit alarm on. Will resume plan of care. Addendum: 12/28/18 at 1205 by TEODORO LEIVA RN RN NURSE NOTES: Report received from DALLAS Yanes. Pt arrived in the unit via gurney. No belongings noted. Pt is lethargic and able to wake up with tactile stimuli. Unable to follow commands. Non-verbal. Able to move extremities on his down at times. On RA. Sinus rhythm on media monitor. IV to right hand G20 and left AC G20 patent and asymptomatic. Pt is on Insulin drip at 12 units and NS at 150cc/hr. Jordan in place draining to gravity. Bed in lowest position. Side rails up x3. Bed exit alarm on. Will resume plan of care.
--- NOTE | 2018-12-28 11:52 | History and Physical ---
History of Present Illness General Date patient seen: Dec 28, 2018 Time patient seen: 09:15 Reason for Hospitalization: Metabolic encephalopathy, DKA Present Illness HPI Silvio Abraham is a 73 yo man with PMH of CVA (residual dysphagia and b/l weakness), epilepsy on AED, CAD, CKD stage III (baseline creatinine ~1.5), hx DVTs on Eliquis, HTN, and DMII (diet controlled not on meds) who presented from [facility] rehab with AMS. History obtained from patient's sister Debbie Hadley over the phone, staff at [facility], ED physician, and chart as patient unable to provide history due to altered mental status, not verbally responsive. Per staff at [facility], patient found this morning to be profoundly altered, slurred speech and not making much sense. He was sent to [facility] [place] further evaluation. Last known well time was last night 12/27/18. Per patient's sister, patient is usually interactive, talkative, and AAOx3 but does have underlying dysphagia due to prior CVA. Sister states patient's typical seizure is generalized shaking of entire body, which she has witnessed before but none recently. Per staff at [facility], patient usually talkative but does have generalized weakness receiving PT/OT. Staff unsure if patient had any recent symptoms of cough, chills, nausea, or seizures but denies record of fever at the facility. In ED, patient VS stable, labs notable for leukocytosis 15.5, hyperkalemia 7.1, bicarb 17, AG 20, BUN/Cr 96/5.7, glucose 1501, ABG 7.169/37/86.5/13.2, and positive ketones in urine. CT head was negative for acute pathology. CXR with atelectasis vs infiltrate in medial lung basis. EKG with sinus rhythm but peaked T waves, no acute ST changes. Patient was given IVF, zosyn x1, and started on insulin gtt. Allergies: Coded Allergies: CODEINE (Unverified Allergy, Unknown, 10/16/18) Medication History Scheduled Amlodipine Besylate* (Amlodipine Besylate*), 5 MG ORAL DAILY, (Reported) Apixaban (Eliquis), 5 MG PO BID, (Reported) Aspirin Ec* (Aspirin Ec*), 81 MG ORAL DAILY, (Reported) Atorvastatin Calcium* (Atorvastatin Calcium*), 40 MG ORAL DAILY, (Reported) Clonidine Hcl* (Catapres*), 0.1 MG ORAL BID, (Reported) Gabapentin* (Gabapentin*), 400 MG ORAL BID Levetiracetam (Keppra), 500 MG ORAL EVERY 12 HOURS, (Reported) Metoprolol Tartrate* (Metoprolol Tartrate*), 25 MG ORAL BID, (Reported) Polyethylene Glycol 3350* (Miralax*), 17 GM ORAL DAILY, (Reported) Scheduled PRN Acetaminophen (Tylenol), 1,000 MG ORAL Q4HR PRN for Prn Pain/Headache/Temp > 101 , (Reported) Hydrocodone Bit/Acetaminophen 5-325* ([place] 5-325*), 1 TAB ORAL Q6H PRN for For Pain, (Reported) Miscellaneous Medications Sennosides (Senna), 8.6 MG PO, (Reported) Discontinued Medications Gabapentin* (Gabapentin*), 300 MG ORAL THREE TIMES A DAY, (Reported) Discontinued Reason: Medication dose changed Patient History Limited by: medical condition - AMS History Provided By: Family Member, Medical Record Healthcare decision maker No HCP per sister, patient has multiple children but is very close to sister Resuscitation status Full Code Advanced Directive on File In chart POLST from Abena Quintana Past Medical/Surgical History Past Medical/Surgical History: (1) CAD (coronary artery disease) (2) CKD (chronic kidney disease) stage 3, GFR 30-59 ml/min (3) Epilepsy (4) History of hyperlipidemia (5) History of neuropathy (6) History of chronic hypertension (7) History of DVT (deep vein thrombosis) (8) Diabetes mellitus Social History Social History: (1) Homelessness Review of Systems ROS Narrative Full ROS unable to obtain due to patient's mental status Physical Exam General Appearance: confused, other - Patient lying in bed, NAD, altered, opens eyes to voice and moans in response to sternal rub but does not follow simple commands and not verbally responsive Lines, tubes and drains: peripheral, severino cath HEENT: normocephalic, atraumatic, supple, other - dry mucous membranes Respiratory/Chest: other - Coarse breath sounds bilaterally, no wheezing appreciated Cardiovascular/Chest: normal peripheral pulses, normal rate, regular rhythm Abdomen: normal bowel sounds, non tender, soft Genitourinary/Rectal: severino - draining pink urine Extremities: no edema Skin Exam: warm/dry Neurologic: other - Opens eyes to verbal stimuli and moans to sternal rub but otherwise no verbal response. AAOx0, Left sided facial twitching/tremors noted, grossly intact Last 24 Hour Vital Signs Date Time Temp Pulse Resp B/P (MAP) Pulse Ox O2 Delivery O2 Flow Rate FiO2 12/28/18 10:08 97.8 82 16 140/51 100 Room Air 12/28/18 10:08 82 16 Room Air 12/28/18 09:06 78 16 Room Air 12/28/18 08:48 97.0 78 16 145/70 100 Room Air 12/28/18 07:30 97.0 82 18 126/46 97 Room Air 12/28/18 07:06 18 Room Air 12/28/18 07:06 18 103/38 97 Room Air 12/28/18 06:48 18 103/38 (59) 97 Room Air Laboratory Tests Test 12/28/18 06:20 12/28/18 08:30 12/28/18 08:46 12/28/18 10:30 White Blood Count 15.5 K/UL (4.8-10.8) H Red Blood Count 5.12 M/UL (4.70-6.10) Hemoglobin 15.2 G/DL (14.2-18.0) Hematocrit 53.1 % (42.0-52.0) H Mean Corpuscular Volume 104 FL (80-99) H Mean Corpuscular Hemoglobin 29.7 PG (27.0-31.0) Mean Corpuscular Hemoglobin Concent 28.7 G/DL (32.0-36.0) L Red Cell Distribution Width 12.6 % (11.6-14.8) Platelet Count 185 K/UL (150-450) Mean Platelet Volume 8.3 FL (6.5-10.1) Neutrophils (%) (Auto) % (45.0-75.0) Lymphocytes (%) (Auto) % (20.0-45.0) Monocytes (%) (Auto) % (1.0-10.0) Eosinophils (%) (Auto) % (0.0-3.0) Basophils (%) (Auto) % (0.0-2.0) Differential Total Cells Counted 100 Neutrophils % (Manual) 89 % (45-75) H Lymphocytes % (Manual) 8 % (20-45) L Monocytes % (Manual) 3 % (1-10) Eosinophils % (Manual) 0 % (0-3) Basophils % (Manual) 0 % (0-2) Band Neutrophils 0 % (0-8) Platelet Estimate Adequate Platelet Morphology Normal Anisocytosis 1+ Macrocytosis 1+ Urine Color Pale yellow Urine Appearance Clear Urine pH 5 (4.5-8.0) Urine Specific [place] 1.015 (1.005-1.035) Urine Protein 2+ (NEGATIVE) H Urine Glucose (UA) 4+ (NEGATIVE) H Urine Ketones 2+ (NEGATIVE) H Urine Blood 2+ (NEGATIVE) H Urine Nitrite Negative (NEGATIVE) Urine Bilirubin Negative (NEGATIVE) Urine Urobilinogen Normal MG/DL (0.0-1.0) Urine Leukocyte Esterase Negative (NEGATIVE) Urine RBC 5-10 /HPF (0 - 0) H Urine WBC 0-2 /HPF (0 - 0) Urine Squamous Epithelial Cells Few /LPF (NONE/OCC) Urine Amorphous Sediment Few /LPF (NONE) H Urine Bacteria Few /HPF (NONE) Sodium Level 136 MMOL/L (136-145) Potassium Level 7.1 MMOL/L (3.5-5.1) *H Chloride Level 100 MMOL/L (98-107) Carbon Dioxide Level 17 MMOL/L (21-32) L Anion Gap 20 mmol/L (5-15) H Blood Urea Nitrogen 96 mg/dL (7-18) H Creatinine 5.7 MG/DL (0.55-1.30) H Estimat Glomerular Filtration Rate mL/min (>60) Glucose Level 1501 MG/DL (74-106) *H Hemoglobin A1c Pending Lactic Acid Level 2.30 mmol/L (0.4-2.0) H 2.60 mmol/L (0.66-2.22) H Calcium Level 9.7 MG/DL (8.5-10.1) Magnesium Level 3.7 MG/DL (1.8-2.4) H Total Bilirubin 0.3 MG/DL (0.2-1.0) Aspartate Amino Transf (AST/SGOT) 12 U/L (15-37) L Alanine Aminotransferase (ALT/SGPT) 15 U/L (12-78) Alkaline Phosphatase 97 U/L (46-116) Total Creatine Kinase 272 U/L (26-308) Creatine Kinase MB 3.8 NG/ML (0.0-3.6) H Creatine Kinase MB Relative Index 1.3 Troponin I 0.103 ng/mL (0.000-0.056) Pro-B-Type Natriuretic Peptide 1640 pg/mL (0-125) H Total Protein 8.9 G/DL (6.4-8.2) H Albumin 3.9 G/DL (3.4-5.0) Globulin 5.0 g/dL Albumin/Globulin Ratio 0.8 (1.0-2.7) L Acetone Level Positive-small (NEGATIVE) Arterial Blood pH 7.169 (7.350-7.450) Arterial Blood Partial Pressure CO2 37.1 mmHg (35.0-45.0) Arterial Blood Partial Pressure O2 86.5 mmHg (75.0-100.0) Arterial Blood HCO3 13.2 mmol/L (22.0-26.0) *L Arterial Blood Oxygen Saturation 95.4 % (95-100) Arterial Blood Base Excess -14.5 (-2-2) *L Nehemias Test Positive Venous Blood pH 7.203 Venous Blood Partial Pressure CO2 39.9 Venous Blood Partial Pressure O2 47.1 Venous Blood HCO3 15.4 Venous Blood Total Carbon Dioxide Pending Venous Bld O2 Saturation (Measured) Pending Venous Blood Oxygen Saturation 77.7 Venous Blood Base Excess Pending Methemoglobin Pending Sodium (Blood Gas) Pending Test 12/28/18 10:45 Sodium Level Pending Potassium Level Pending Chloride Level Pending Carbon Dioxide Level Pending Blood Urea Nitrogen Pending Creatinine Pending Estimat Glomerular Filtration Rate Pending Glucose Level Pending Calcium Level Pending Height (Feet): 5 Height (Inches): 8.00 Weight (Pounds): 190 Medications Current Medications Medications (Trade) Dose Ordered Sig/Sheeba Route PRN Reason Start Time Stop Time Status Last Admin Dose Admin Acetaminophen (Tylenol) 650 mg Q6HR PRN ORAL pain or fever T>101 12/28/18 10:30 01/27/19 10:29 Apixaban (Eliquis) 5 mg BID ORAL 12/28/18 10:45 01/27/19 10:44 Aspirin (ASA) 81 mg DAILY ORAL 12/29/18 09:00 01/28/19 08:59 Dextrose (Dextrose 50%) 25 ml Q30M PRN IV Hypoglycemia 12/28/18 09:45 01/27/19 09:44 Dextrose (Dextrose 50%) 50 ml Q30M PRN IV Hypoglycemia 12/28/18 09:45 01/27/19 09:44 Insulin Human Regular (NovoLIN R) 5 units PRN PRN IV BS 200-299 12/28/18 10:30 01/27/19 10:29 Insulin Human Regular (NovoLIN R) 10 units PRN PRN IV BS=>300 12/28/18 10:30 01/27/19 10:29 Insulin Human Regular 100 units/ Sodium Chloride 100 ml @ 0 mls/hr Q24H IV 12/28/18 10:30 01/27/19 10:29 Levetiracetam 100 ml @ 400 mls/hr Q12HR IVPB 12/28/18 10:30 01/27/19 10:29 12/28/18 10:43 Metoprolol Tartrate (Lopressor) 25 mg Q12HR ORAL 12/28/18 21:00 01/27/19 20:59 Miscellaneous Medication (Insulin Rate Change) 1 ea PRN PRN MISC Hypoglycemia 12/28/18 10:30 01/27/19 10:29 Piperacillin Sod/ Tazobactam Sod 2.25 gm/Sodium Chloride 110 ml @ 220 mls/hr EVERY 8 HOURS IVPB 12/28/18 14:00 01/04/19 13:59 Sodium Chloride 1,000 ml @ 150 mls/hr Q6H40M IVLG 12/28/18 10:35 01/27/19 10:34 12/28/18 10:51 Sodium Chloride 1,000 ml @ 200 mls/hr Q5H IV 12/28/18 11:00 01/27/19 10:59 Assessment/Plan Problem List: (1) Seizure ICD Codes: R56.9 - Unspecified convulsions SNOMED: 64836681 (2) Acidemia ICD Codes: E87.2 - Acidosis SNOMED: 08117113 (3) Hyperglycemia ICD Codes: R73.9 - Hyperglycemia, unspecified SNOMED: 48514804 (4) Metabolic encephalopathy ICD Codes: G93.41 - Metabolic encephalopathy SNOMED: 09802947 (5) Acute kidney injury superimposed on CKD ICD Codes: N17.9 - Acute kidney failure, unspecified; N18.9 - Chronic kidney disease, unspecified SNOMED: 36384322, 756554537 (6) Renal failure ICD Codes: N19 - Unspecified kidney failure SNOMED: 23474663 Qualifiers: Qualified Codes: N17.9 - Acute kidney failure, unspecified (7) Sepsis ICD Codes: A41.9 - Sepsis, unspecified organism SNOMED: 32968429, 457353609, 598593185 Qualifiers: Qualified Codes: A41.9 - Sepsis, unspecified organism (8) Elevated troponin ICD Codes: R74.8 - Abnormal levels of other serum enzymes SNOMED: 376726942, 271522534, 205748275 (9) Hyperkalemia ICD Codes: E87.5 - Hyperkalemia SNOMED: 24449558 (10) DKA (diabetic ketoacidoses) ICD Codes: E11.10 - Type 2 diabetes mellitus with ketoacidosis without coma SNOMED: 23510679, 716712976 Qualifiers: Qualified Codes: E13.11 - Other specified diabetes mellitus with ketoacidosis with coma (11) CAD (coronary artery disease) ICD Codes: I25.10 - Atherosclerotic heart disease of [place] coronary artery without angina pectoris SNOMED: 29094824 (12) Epilepsy ICD Codes: G40.909 - Epilepsy, unspecified, not intractable, without status epilepticus SNOMED: 41355568 (13) CKD (chronic kidney disease) stage 3, GFR 30-59 ml/min ICD Codes: N18.3 - Chronic kidney disease, stage 3 (moderate) SNOMED: 004972172 (14) History of DVT (deep vein thrombosis) ICD Codes: Z86.718 - Personal history of other venous thrombosis and embolism SNOMED: 292502870 (15) History of neuropathy ICD Codes: Z86.69 - Personal history of other diseases of the nervous system and sense organs SNOMED: 872221201, 653280446 (16) History of hyperlipidemia ICD Codes: Z86.39 - Personal history of other endocrine, nutritional and metabolic disease SNOMED: 480437133 (17) History of chronic hypertension ICD Codes: Z86.79 - Personal history of other diseases of the circulatory system SNOMED: 590953855 (18) Diabetes mellitus ICD Codes: E11.9 - Type 2 diabetes mellitus without complications SNOMED: 24747063 Qualifiers: Assessment/Plan: Silvio Abraham is a 73 yo man with PMH of DMII (diet controlled not on meds) , epilepsy on AED, CKD stage III (baseline creatinine ~1.5), CAD, CVA with residual weakness and dysphagia, hx DVTs, and HTN who presented from [facility] with AMS, found with leukocytosis 15.5, hyperkalemia 7.1, BUN/Cr 96/5.7, ABG 7.16/37/86.5/13.2, BNP 1640, glucose 1501, troponin 0.103, and positive ketones in urine, admitted to medical ICU for DKA, possible PNA, JERMAN on CKD with hyperkalemia, and likely demand STEMI. Neuro: Metabolic encephalopathy, hx of epilepsy - Encephalopathy in setting of DKA, JERMAN, and possible infection - Treatment of DKA and infection as per below - CT head without acute pathology, chronic small vessel changes, cerebral parenchymal volume loss 2/2 age - Noted facial twitching on exam, no tonic clonic movements (per sister patient gets generalized seizures). Check EEG - Continue home keppra 500mg BID - Hold home gabapentin 400mg PO BID given AMS - Neuro checks q4hrs Endo: DKA, hx DMII (not on medications) - Glucose 1501, AG 20, +ketones in urine ABG 7.169/37/86.5/13.2 on admission - Insulin gtt per DKA protocol - Monitor FS q1hrs - Aggressive IVF, s/p 1L NS in ED, continue NS @ 150cc/hr - BMP, VBG q4hrs while in DKA - F/U hgb A1C Nephro: JERMAN on CKD (baseline creatinine ~1.5), hyperkalemia in setting of JERMAN and acidemia, metabolic acidosis - BUN/Cr 96/5.7 on admission - Likely prerenal 2/2 severe dehydration - Aggressive IVF as per above - EKG with peak T waves on admission - s/p insulin, calcium gluconate, sodium bicarb x1 in ED - Monitor BMP q4hrs for now - Expect potassium to improve with above and treatment of DKA ID/Pulm: Sepsis 2/2 possible PNA - Possible PNA as trigger for DKA - CXR with atelectasis vs infiltrate in medial lung basis - Afebrile with leukocytosis 15.5 - Lactic 2.3-->2.6, recheck for resolution - Zosyn 2.25mg IV q8hr renally dose for now - F/U BCX - UA unremarkable for acute infection - Currently satting well on RA - Aspiration precautions CVS: Demand NSTEMI, hx HTN, CAD, DVTs - Troponin 0.103 on admission, without ST EKG changes, likely demand ischemia in setting of JERMAN on CKD and DKA/sepsis - Repeat troponin in afternoon, trend to downtrend - Continue home aspirin 81mg PO daily - Continue home metoprolol 25mg PO BID - Hold home losartan 50mg PO daily given JERMAN - Hold home clonidine and amlodipine for now given sepsis, resume if becomes hypertensive - Continue home eliquis, change to renal dose 2.5mg PO BID GI: hx dysphagia - Reportedly on mechanical soft thin liquids at SNF - NPO for now given DKA and AMS - IVF as per above FEN: NS @150cc/hr NPO Full Code Discussed with ICU Dr. Strickland, ED attending, RN, patient's sister over the phone, staff at [facility]. I spent 75 minutes on this patient's case with >50% on counseling and coordination of care. I spent 35 minutes of critical care time. I spent 15 minutes on advanced care planning discussion with family. Melissa Campos M.D. Dec 28, 2018 11:52
[2018-12-28] MEDS: Insulin Human Regular 100units/ml 3ml IV PRN ×11 (12:44→22:04)
[2018-12-28] MEDS: Insulin Rate Change 1 Each MISC PRN ×4 (12:45→19:25)
[2018-12-28 12:49] LABS: ANION GAP 21 mmol/L (5-15); BLOOD UREA NITROGEN 95 mg/dL (7-18); CALCIUM 9.4 MG/DL (8.5-10.1); CARBON DIOXIDE 19 MMOL/L (21-32); CHLORIDE 110 MMOL/L (98-107); CREATININE 5.3 MG/DL (0.55-1.30); POTASSIUM 4.6 MMOL/L (3.5-5.1); SODIUM 150 MMOL/L (136-145)
--- NOTE | 2018-12-28 13:08 | NUR ---
NURSE NOTES: Pt is restless and trying to get up at times. Order for bilateral soft wrist restraints received from Dr Campos and noted and applied to the patient. Will assess the patient q 2 hours as per protocol. Addendum: 12/28/18 at 1749 by TEODORO LEIVA RN RN NURSE NOTES: Pt is restless and trying to get up at times. Order for bilateral soft wrist restraints received from Dr Campos and noted and applied to the patient. Will assess the patient q 2 hours as per protocol. Also notified Dr Campos that pt is too lethargic and has no oral access for Eliquis PO. No new orders.
--- NOTE | 2018-12-28 13:47 | Pulmonolgy Critical Care Note ---
Critical Care - Asmt/Plan Problems: (1) DKA (diabetic ketoacidoses) (2) Acute kidney injury superimposed on CKD (3) Metabolic encephalopathy (4) Sepsis (5) CAD (coronary artery disease) (6) Epilepsy (7) Diabetes mellitus (8) Seizure (9) Hyperglycemia (10) Acidemia (11) History of DVT (deep vein thrombosis) (12) History of hyperlipidemia (13) History of neuropathy (14) History of chronic hypertension Respiratory: monitor respiratory rate, other - Continue Abx for PNA Cardiac: continue to monitor HR/BP, other - TTE Renal: keep IV fluid - once BS < 250 add dextrose, monitor K, check electrolytes Infectious Disease: check cultures, continue antibiotics - Zosyn Gastrointestinal: other - Once MS better start PO, bedside RN swallow eval Endocrine: monitor blood sugar, check TSH, other - Insulin gtt, DKA protocol, monitor BS, monitor gap, once gap closed overalp SQ and IV Hematologic: monitor H/H Neurologic: keep patient comfortable - monitor MS Prophylaxis: Protonix, other - Eliquis Disposition: keep in ICU Time Spent (Minutes): 60 Notes Reviewed: signalman Discussed with: nurses, consultants Critical Care - Objective Last 24 Hour Vital Signs Date Time Temp Pulse Resp B/P (MAP) Pulse Ox O2 Delivery O2 Flow Rate FiO2 12/28/18 12:00 92 12/28/18 12:00 97.3 92 19 146/72 (96) 98 12/28/18 10:08 97.8 82 16 140/51 100 Room Air 12/28/18 10:08 82 16 Room Air 12/28/18 09:06 78 16 Room Air 12/28/18 08:48 97.0 78 16 145/70 100 Room Air 12/28/18 07:30 97.0 82 18 126/46 97 Room Air 12/28/18 07:06 18 Room Air 12/28/18 07:06 18 103/38 97 Room Air 12/28/18 06:48 18 103/38 (59) 97 Room Air Status: somnolent Condition: critical HEENT: atraumatic, normocephalic Neck: full ROM Lungs: clear Heart: HR/BP stable Abdomen: soft, non-tender, active bowel sounds Extremities: no C/C/E Blood Sugars: BS not controlled Critical Care - Subjective ROS Limited/Unobtainable: Yes ICU Day: 1 Interval Events: 73 yM h/o DM2 (not on meds), epilepsy on AED, CKD 3I (baseline creatinine ~1.5) , CAD, CVA with residual weakness and dysphagia, hx DVTs on Eliquis, and HTN who presented from SNF with AMS leukocytosis, AGMA, DKA, JERMAN and possible PNA. Patient is lethargic and arousable, CXR with atx/inf @ L base, CT head with chronic changes, . 7.//, + ketone. Condition: critical IV Access: peripheral EKG Rhythm: Sinus Rhythm Sputum Amount: None Fluids: LR@150 Drips: Insulin gtt Subjective: DINA CXR: atx vs inf L base Labs: Laboratory Tests Test 12/28/18 06:20 12/28/18 08:30 12/28/18 08:46 12/28/18 10:30 White Blood Count 15.5 K/UL (4.8-10.8) H Red Blood Count 5.12 M/UL (4.70-6.10) Hemoglobin 15.2 G/DL (14.2-18.0) Hematocrit 53.1 % (42.0-52.0) H Mean Corpuscular Volume 104 FL (80-99) H Mean Corpuscular Hemoglobin 29.7 PG (27.0-31.0) Mean Corpuscular Hemoglobin Concent 28.7 G/DL (32.0-36.0) L Red Cell Distribution Width 12.6 % (11.6-14.8) Platelet Count 185 K/UL (150-450) Mean Platelet Volume 8.3 FL (6.5-10.1) Neutrophils (%) (Auto) % (45.0-75.0) Lymphocytes (%) (Auto) % (20.0-45.0) Monocytes (%) (Auto) % (1.0-10.0) Eosinophils (%) (Auto) % (0.0-3.0) Basophils (%) (Auto) % (0.0-2.0) Differential Total Cells Counted 100 Neutrophils % (Manual) 89 % (45-75) H Lymphocytes % (Manual) 8 % (20-45) L Monocytes % (Manual) 3 % (1-10) Eosinophils % (Manual) 0 % (0-3) Basophils % (Manual) 0 % (0-2) Band Neutrophils 0 % (0-8) Platelet Estimate Adequate Platelet Morphology Normal Anisocytosis 1+ Macrocytosis 1+ Urine Color Pale yellow Urine Appearance Clear Urine pH 5 (4.5-8.0) Urine Specific [place] 1.015 (1.005-1.035) Urine Protein 2+ (NEGATIVE) H Urine Glucose (UA) 4+ (NEGATIVE) H Urine Ketones 2+ (NEGATIVE) H Urine Blood 2+ (NEGATIVE) H Urine Nitrite Negative (NEGATIVE) Urine Bilirubin Negative (NEGATIVE) Urine Urobilinogen Normal MG/DL (0.0-1.0) Urine Leukocyte Esterase Negative (NEGATIVE) Urine RBC 5-10 /HPF (0 - 0) H Urine WBC 0-2 /HPF (0 - 0) Urine Squamous Epithelial Cells Few /LPF (NONE/OCC) Urine Amorphous Sediment Few /LPF (NONE) H Urine Bacteria Few /HPF (NONE) Sodium Level 136 MMOL/L (136-145) Potassium Level 7.1 MMOL/L (3.5-5.1) *H Chloride Level 100 MMOL/L (98-107) Carbon Dioxide Level 17 MMOL/L (21-32) L Anion Gap 20 mmol/L (5-15) H Blood Urea Nitrogen 96 mg/dL (7-18) H Creatinine 5.7 MG/DL (0.55-1.30) H Estimat Glomerular Filtration Rate mL/min (>60) Glucose Level 1501 MG/DL (74-106) *H Hemoglobin A1c 12.0 % (4.3-6.0) H Lactic Acid Level 2.30 mmol/L (0.4-2.0) H 2.60 mmol/L (0.66-2.22) H Calcium Level 9.7 MG/DL (8.5-10.1) Magnesium Level 3.7 MG/DL (1.8-2.4) H Total Bilirubin 0.3 MG/DL (0.2-1.0) Aspartate Amino Transf (AST/SGOT) 12 U/L (15-37) L Alanine Aminotransferase (ALT/SGPT) 15 U/L (12-78) Alkaline Phosphatase 97 U/L (46-116) Total Creatine Kinase 272 U/L (26-308) Creatine Kinase MB 3.8 NG/ML (0.0-3.6) H Creatine Kinase MB Relative Index 1.3 Troponin I 0.103 ng/mL (0.000-0.056) Pro-B-Type Natriuretic Peptide 1640 pg/mL (0-125) H Total Protein 8.9 G/DL (6.4-8.2) H Albumin 3.9 G/DL (3.4-5.0) Globulin 5.0 g/dL Albumin/Globulin Ratio 0.8 (1.0-2.7) L Acetone Level Positive-small (NEGATIVE) Arterial Blood pH 7.169 (7.350-7.450) Arterial Blood Partial Pressure CO2 37.1 mmHg (35.0-45.0) Arterial Blood Partial Pressure O2 86.5 mmHg (75.0-100.0) Arterial Blood HCO3 13.2 mmol/L (22.0-26.0) *L Arterial Blood Oxygen Saturation 95.4 % (95-100) Arterial Blood Base Excess -14.5 (-2-2) *L Nehemias Test Positive Venous Blood pH 7.203 Venous Blood Partial Pressure CO2 39.9 Venous Blood Partial Pressure O2 47.1 Venous Blood HCO3 15.4 Venous Blood Total Carbon Dioxide Pending Venous Bld O2 Saturation (Measured) Pending Venous Blood Oxygen Saturation 77.7 Venous Blood Base Excess Pending Methemoglobin Pending Sodium (Blood Gas) Pending Test 12/28/18 12:26 Sodium Level 150 MMOL/L (136-145) #H Potassium Level 4.6 MMOL/L (3.5-5.1) Chloride Level 110 MMOL/L (98-107) H Carbon Dioxide Level 19 MMOL/L (21-32) L Anion Gap 21 mmol/L (5-15) H Blood Urea Nitrogen 95 mg/dL (7-18) H Creatinine 5.3 MG/DL (0.55-1.30) H Estimat Glomerular Filtration Rate mL/min (>60) Glucose Level 1017 MG/DL (74-106) #*H Calcium Level 9.4 MG/DL (8.5-10.1) Marcelino Strickland MD Dec 28, 2018 13:47
[2018-12-28] MEDS ORDERED: LR 1000ml 1,000 ML IV SCH (14:30)
--- NOTE | 2018-12-28 14:30 | NUR ---
NURSE NOTES: EEG is being done at bedside. BS and lab draw delayed due to EEG.
[2018-12-28] MEDS: Piperacillin/Tazobactam 2.25 GM in NS 110 ML IVPB SCH ×2 (15:29→21:56)
[2018-12-28 16:17] LABS: ANION GAP 14 mmol/L (5-15); BLOOD UREA NITROGEN 87 mg/dL (7-18); CALCIUM 9.7 MG/DL (8.5-10.1); CARBON DIOXIDE 23 MMOL/L (21-32); CHLORIDE 119 MMOL/L (98-107); CREATININE 4.7 MG/DL (0.55-1.30); POTASSIUM 3.1 MMOL/L (3.5-5.1); SODIUM 156 MMOL/L (136-145)
--- NOTE | 2018-12-28 17:06 | NUR ---
NURSE NOTES: Called and left a message to Dr Campos regarding BMP results. Awaiting call back for new orders.
--- NOTE | 2018-12-28 17:30 | NUR ---
NURSE NOTES: Dr Campos called back. Notified her regarding BMP result. Will wait for new orders.
[2018-12-28] MEDS: Eliquis 2.5mg tablet ORAL SCH (17:45)
[2018-12-28] MEDS: 1/2NS w/KCl 20mEq 1000ml 1,000 ML IV SCH (17:56)
--- NOTE | 2018-12-28 19:40 | NUR ---
NURSE NOTES: Received report from DALLAS Sanders. Patient is drowsy and opens eyes to verbal. On bilateral soft wrist bands restraints and seizure precaution. Right hand 20G IV intact and running with 1/2NS w/20meq @125ml/hr. Left AC 20G IV intact and running with insulin drip 12unit/hr. Kept dry, clean, comfortable and HOB>30. Will continue plan of care.
--- NOTE | 2018-12-28 19:42 | NUR ---
HAND-OFF: Report given to DALLAS Garcia.
[2018-12-28 20:03] LABS: ANION GAP 11 mmol/L (5-15); BLOOD UREA NITROGEN 85 mg/dL (7-18); CALCIUM 9.8 MG/DL (8.5-10.1); CARBON DIOXIDE 26 MMOL/L (21-32); CHLORIDE 121 MMOL/L (98-107); CREATININE 4.7 MG/DL (0.55-1.30); POTASSIUM 3.7 MMOL/L (3.5-5.1); SODIUM 158 MMOL/L (136-145)
[2018-12-28] MEDS: Pantoprazole Inj IVP SCH (20:46)
[2018-12-28] MEDS: Metoprolol 25mg tab ORAL SCH (20:52)
--- NOTE | 2018-12-28 21:00 | NUR ---
NURSE NOTES: BS 273, titrate insulin drip to 10units/hr and 5 units bolus given as protocol. Will continue plan of care.
--- NOTE | 2018-12-28 23:00 | NUR ---
NURSE NOTES: BS 122, Changed insulin rate to 4 units/hr and algorithm 3 to 4. Will continue plan of care.
[2018-12-29] VITALS (19 sets, daily range): BP systolic 108–167; BP diastolic 60–116
--- NOTE | 2018-12-29 00:55 | NUR ---
NURSE NOTES: Patient is asking for water and food. Ice chip was given and patient is able to swallow without aspiration. Patient drank 120ml water and 60ml of ice chip. Patient is alert and oriented x2 at this time. Will continue plan of care.
--- NOTE | 2018-12-29 02:00 | NUR ---
NURSE NOTES: BS 116. Insulin drip titrate down to 2unit/hr.
[2018-12-29] MEDS: 1/2NS w/KCl 20mEq 1000ml 1,000 ML IV SCH ×2 (02:05→10:34)
--- NOTE | 2018-12-29 04:00 | NUR ---
NURSE NOTES: Bed bath given. Titrate insulin drip per protocol. Will continue plan of care.
[2018-12-29] MEDS: Piperacillin/Tazobactam 2.25 GM in NS 110 ML IVPB SCH ×3 (05:35→21:17)
--- NOTE | 2018-12-29 06:00 | NUR ---
NURSE NOTES: Insulin titrate per protocol. No s/sx of hypoglycemia. Will continue plan of care.
[2018-12-29 06:42] LABS: ANION GAP 11 mmol/L (5-15); BLOOD UREA NITROGEN 72 mg/dL (7-18); CALCIUM 9.5 MG/DL (8.5-10.1); CARBON DIOXIDE 25 MMOL/L (21-32); CHLORIDE 129 MMOL/L (98-107); CREATININE 3.9 MG/DL (0.55-1.30); PHOSPHORUS 2.8 MG/DL (2.5-4.9); POTASSIUM 3.8 MMOL/L (3.5-5.1)
[2018-12-29 06:46] LABS: SODIUM 165 MMOL/L (136-145)
[2018-12-29 06:54] LABS: HEMATOCRIT 45.2 % (42.0-52.0); HEMOGLOBIN 14.9 G/DL (14.2-18.0); MEAN CORPUSCULAR VOLUME 91 FL (80-99); PLATELET COUNT 184 K/UL (150-450); RED BLOOD COUNT 4.94 M/UL (4.70-6.10); RED CELL DISTRIBUTION WIDTH 11.7 % (11.6-14.8); WHITE BLOOD COUNT 19.1 K/UL (4.8-10.8)
--- NOTE | 2018-12-29 07:31 | NUR ---
HAND-OFF: Report given to DALLAS Valle. Endorsed plan of care.
--- NOTE | 2018-12-29 08:00 | NUR ---
NURSE NOTES: Received change of shift report from Glen HAYNES. Pt is awake, alert, oriented x2, name/birthday. Pt is on room air with 100% O2sat and clear yet diminished lung sounds. laboratory monitor displays NSR with heart rate in the 80's. Weak peripheral pulses are noted on palpation. Pt has two peripheral IV access in place, right hand #20G and left AC #20G, with Insulin drip infusing at Algorithm 4 currently at 2units/hr per protocol/order, and IV fluid infusing 0.45NS with KCL 20meq at 125ml/hour. Abdomen is round, soft, nontender to touch with hypoactive bowel sounds on auscultation. Pt has Jordan catheter in place, draining clear/yellow urine. Skin is intact. Bed is locked with three side rails up, in lowest position and call light within easy reach. Will continue to monitor pt and follow plan of care.
--- NOTE | 2018-12-29 08:05 | NUR ---
NURSE NOTES: Insulin drip has been titrated to 4 units/hr per Algorithm 4 order/protocol for blood glucose of 121.
[2018-12-29] MEDS: Insulin Rate Change 1 Each MISC PRN (08:15)
[2018-12-29] MEDS ORDERED: Aspirin Baby 81mg ORAL SCH (09:00)
--- NOTE | 2018-12-29 09:00 | NUR ---
NURSE NOTES: Insulin drip has been titrated to 3 units/hr per Algorithm 4 order/protocol for blood glucose of 119.
[2018-12-29] MEDS: Eliquis 2.5mg tablet ORAL SCH ×2 (09:21→17:36)
[2018-12-29] MEDS: Metoprolol 25mg tab ORAL SCH ×2 (09:21→21:15)
[2018-12-29] MEDS: levETIRAcetam 500mg/NS100ml 100 ML IVPB SCH ×2 (09:21→21:17)
[2018-12-29] MEDS: Pantoprazole Inj IVP SCH ×2 (09:22→21:15)
--- NOTE | 2018-12-29 10:00 | NUR ---
NURSE NOTES: Insulin drip has been titrated to 2 units/hr per Algorithm 4-order/protocol for blood glucose of 103. VS stable. AM meds have been administered. Pt was seen by Dr Campos. Per , orders will be placed to replace insulin drip with subcutaneous insulins Novolog and Levemir, NPO diet will be advanced to CCHO med pureed moist with thickened liquids, home BP meds will be continued.
[2018-12-29] MEDS ORDERED: Levemir Flexpen SUBQ SCH (10:30)
[2018-12-29] MEDS: NovoLOG Insulin Flexpen SUBQ SCH ×5 (11:50→21:19)
--- NOTE | 2018-12-29 12:18 | Pulmonolgy Critical Care Note ---
Critical Care - Asmt/Plan Problems: (1) DKA (diabetic ketoacidoses) (2) Acute kidney injury superimposed on CKD (3) Metabolic encephalopathy (4) Sepsis (5) CAD (coronary artery disease) (6) Epilepsy (7) Diabetes mellitus (8) Seizure (9) Hyperglycemia (10) Acidemia (11) History of DVT (deep vein thrombosis) (12) History of hyperlipidemia (13) History of neuropathy (14) History of chronic hypertension Respiratory: monitor respiratory rate Cardiac: continue to monitor HR/BP Renal: keep IV fluid - changed to D5W, check electrolytes - Monitor Na, consider renal eval Infectious Disease: check cultures, continue antibiotics - Zosyn D2 Gastrointestinal: start feedings - PO , other - forest technician eval Endocrine: monitor blood sugar, continue sliding scale insulin, other - SQ started, overlap with IV x 1 hour Neurologic: keep patient comfortable - monitor MS Prophylaxis: Protonix, other - Eliquis Disposition: transfer to - [facility] Time Spent (Minutes): 30 Notes Reviewed: auto claim representative Discussed with: nurses Critical Care - Objective Last 24 Hour Vital Signs Date Time Temp Pulse Resp B/P (MAP) Pulse Ox O2 Delivery O2 Flow Rate FiO2 12/29/18 11:43 132/77 12/29/18 11:43 87 132/77 12/29/18 10:00 87 18 132/77 (95) 100 12/29/18 09:21 98 167/82 12/29/18 09:00 96 17 158/74 (102) 100 12/29/18 08:00 Room Air 12/29/18 08:00 98.1 103 17 133/89 (104) 100 12/29/18 07:00 98 20 167/82 (110) 100 12/29/18 06:00 95 17 154/66 (95) 100 12/29/18 05:00 96 16 159/70 (99) 100 12/29/18 04:00 Room Air 12/29/18 04:00 98 12/29/18 04:00 101 19 158/95 (116) 100 12/29/18 03:00 99 19 160/85 (110) 100 12/29/18 02:00 98 19 150/79 (102) 100 12/29/18 01:00 99 19 154/105 (121) 100 12/29/18 00:00 Room Air 12/29/18 00:00 96 12/29/18 00:00 97.8 101 18 139/84 (102) 100 12/28/18 23:00 95 20 132/71 (91) 99 12/28/18 22:00 104 20 138/82 (100) 99 12/28/18 21:00 101 18 145/81 (102) 98 12/28/18 20:52 104 130/99 12/28/18 20:00 98.0 108 21 130/99 (109) 99 12/28/18 20:00 101 12/28/18 20:00 Room Air 12/28/18 19:00 101 19 139/72 (94) 98 12/28/18 18:00 105 18 117/90 (99) 99 12/28/18 17:00 104 20 121/68 (85) 99 12/28/18 16:28 97.3 92 19 146/72 98 Room Air 12/28/18 16:00 Room Air 12/28/18 16:00 105 19 148/77 (100) 99 12/28/18 16:00 104 12/28/18 15:00 103 19 149/77 (101) 99 12/28/18 14:00 98.2 97 20 131/85 (100) 100 12/28/18 13:00 92 19 146/72 (96) 98 Status: awake, other - dysarthria Condition: improving HEENT: atraumatic, normocephalic Neck: full ROM Lungs: clear Heart: HR/BP stable Abdomen: soft, non-tender, active bowel sounds Extremities: no C/C/E Micro: Microbiology Date/Time Source Procedure Growth Status 12/28/18 07:00 Rectum Received Accucheck: 136 Blood Sugars: BS controlled Critical Care - Subjective ROS Limited/Unobtainable: Yes ICU Day: 2 Interval Events: Gap closed Awake and alert Na 165 Started SQ IVF changed to D5W No cough, no SOB, no wheezing, no FC Condition: critical IV Access: peripheral EKG Rhythm: Sinus Rhythm Sputum Amount: None Fluids: D5W@125 Drips: Insulin Tube Feeding Amount: 30 I&O: Intake and Output 12/28/18 12/29/18 19:00 07:00 Intake Total 8050.25 ml 2070.0 ml Output Total 1220 ml 685 ml Balance 6830.25 ml 1385.0 ml Intake IV Total 8050.25 ml 1890.0 ml Tube Feeding 180 ml Output Urine Total 1220 ml 685 ml # Bowel Movements 12 Subjective: No complaints Labs: Laboratory Tests Test 12/28/18 12:26 12/28/18 15:20 12/28/18 19:00 12/29/18 05:30 Sodium Level 150 MMOL/L (136-145) #H 156 MMOL/L (136-145) H 158 MMOL/L (136-145) H 165 MMOL/L (136-145) *H Potassium Level 4.6 MMOL/L (3.5-5.1) 3.1 MMOL/L (3.5-5.1) L 3.7 MMOL/L (3.5-5.1) 3.8 MMOL/L (3.5-5.1) Chloride Level 110 MMOL/L (98-107) H 119 MMOL/L (98-107) H 121 MMOL/L (98-107) H 129 MMOL/L (98-107) H Carbon Dioxide Level 19 MMOL/L (21-32) L 23 MMOL/L (21-32) 26 MMOL/L (21-32) 25 MMOL/L (21-32) Anion Gap 21 mmol/L (5-15) H 14 mmol/L (5-15) 11 mmol/L (5-15) 11 mmol/L (5-15) Blood Urea Nitrogen 95 mg/dL (7-18) H 87 mg/dL (7-18) H 85 mg/dL (7-18) H 72 mg/dL (7-18) H Creatinine 5.3 MG/DL (0.55-1.30) H 4.7 MG/DL (0.55-1.30) H 4.7 MG/DL (0.55-1.30) H 3.9 MG/DL (0.55-1.30) H Estimat Glomerular Filtration Rate mL/min (>60) mL/min (>60) mL/min (>60) mL/min (>60) Glucose Level 1017 MG/DL (74-106) #*H 740 MG/DL (74-106) #*H 499 MG/DL (74-106) #H 125 MG/DL (74-106) #H Calcium Level 9.4 MG/DL (8.5-10.1) 9.7 MG/DL (8.5-10.1) 9.8 MG/DL (8.5-10.1) 9.5 MG/DL (8.5-10.1) Lactic Acid Level 1.90 mmol/L (0.4-2.0) Troponin I 0.156 ng/mL (0.000-0.056) 0.772 ng/mL (0.000-0.056) White Blood Count 19.1 K/UL (4.8-10.8) H Red Blood Count 4.94 M/UL (4.70-6.10) Hemoglobin 14.9 G/DL (14.2-18.0) Hematocrit 45.2 % (42.0-52.0) Mean Corpuscular Volume 91 FL (80-99) # Mean Corpuscular Hemoglobin 30.1 PG (27.0-31.0) Mean Corpuscular Hemoglobin Concent 33.0 G/DL (32.0-36.0) Red Cell Distribution Width 11.7 % (11.6-14.8) Platelet Count 184 K/UL (150-450) Mean Platelet Volume 9.5 FL (6.5-10.1) Neutrophils (%) (Auto) % (45.0-75.0) Lymphocytes (%) (Auto) % (20.0-45.0) Monocytes (%) (Auto) % (1.0-10.0) Eosinophils (%) (Auto) % (0.0-3.0) Basophils (%) (Auto) % (0.0-2.0) Differential Total Cells Counted 100 Neutrophils % (Manual) 76 % (45-75) H Lymphocytes % (Manual) 10 % (20-45) L Monocytes % (Manual) 12 % (1-10) H Eosinophils % (Manual) 0 % (0-3) Basophils % (Manual) 0 % (0-2) Band Neutrophils 2 % (0-8) Platelet Estimate Adequate Platelet Morphology Normal Red Blood Cell Morphology Normal Prothrombin Time 10.7 SEC (9.30-11.50) Prothromb Time International Ratio 1.0 (0.9-1.1) Activated Partial Thromboplast Time 26 SEC (23-33) Phosphorus Level 2.8 MG/DL (2.5-4.9) Marcelino Strickland MD Dec 29, 2018 12:18
--- NOTE | 2018-12-29 12:30 | NUR ---
NURSE NOTES: Pt consumed 75% of lunch meal. VS stable. Denies pain or any other discomfort. Pt remains afebrile. Pt has been repositioned. IV fluid has been switched to D5W at 125ml/hour per MD order.
--- NOTE | 2018-12-29 14:00 | NUR ---
NURSE NOTES: Order has been noted to transfer pt to Tele per Dr Campos. Awaiting for bed availability. Pt is asleep with stable VS and in no apparent distress.
--- NOTE | 2018-12-29 14:17 | General Progress Note ---
Assessment/Plan Problem List: (1) Seizure ICD Codes: R56.9 - Unspecified convulsions SNOMED: 47316402 (2) Acidemia ICD Codes: E87.2 - Acidosis SNOMED: 26093587 (3) Hyperglycemia ICD Codes: R73.9 - Hyperglycemia, unspecified SNOMED: 05120277 (4) Metabolic encephalopathy ICD Codes: G93.41 - Metabolic encephalopathy SNOMED: 36839270 (5) Acute kidney injury superimposed on CKD ICD Codes: N17.9 - Acute kidney failure, unspecified; N18.9 - Chronic kidney disease, unspecified SNOMED: 35187443, 987201789 (6) Renal failure ICD Codes: N19 - Unspecified kidney failure SNOMED: 46949234 Qualifiers: Qualified Codes: N17.9 - Acute kidney failure, unspecified (7) Sepsis ICD Codes: A41.9 - Sepsis, unspecified organism SNOMED: 94646109, 872962157, 560604418 Qualifiers: Qualified Codes: A41.9 - Sepsis, unspecified organism (8) Elevated troponin ICD Codes: R74.8 - Abnormal levels of other serum enzymes SNOMED: 354507052, 770425694, 242971731 (9) Hyperkalemia ICD Codes: E87.5 - Hyperkalemia SNOMED: 66578014 (10) DKA (diabetic ketoacidoses) ICD Codes: E11.10 - Type 2 diabetes mellitus with ketoacidosis without coma SNOMED: 21357329, 866042668 Qualifiers: Qualified Codes: E13.11 - Other specified diabetes mellitus with ketoacidosis with coma (11) CAD (coronary artery disease) ICD Codes: I25.10 - Atherosclerotic heart disease of redding coronary artery without angina pectoris SNOMED: 20763548 (12) Epilepsy ICD Codes: G40.909 - Epilepsy, unspecified, not intractable, without status epilepticus SNOMED: 89866350 (13) CKD (chronic kidney disease) stage 3, GFR 30-59 ml/min ICD Codes: N18.3 - Chronic kidney disease, stage 3 (moderate) SNOMED: 489469924 (14) History of DVT (deep vein thrombosis) ICD Codes: Z86.718 - Personal history of other venous thrombosis and embolism SNOMED: 080706996 (15) History of neuropathy ICD Codes: Z86.69 - Personal history of other diseases of the nervous system and sense organs SNOMED: 453733133, 462213238 (16) History of hyperlipidemia ICD Codes: Z86.39 - Personal history of other endocrine, nutritional and metabolic disease SNOMED: 263255803 (17) History of chronic hypertension ICD Codes: Z86.79 - Personal history of other diseases of the circulatory system SNOMED: 732154682 (18) Diabetes mellitus ICD Codes: E11.9 - Type 2 diabetes mellitus without complications SNOMED: 08001688 Qualifiers: Status: progressing - improving Assessment/Plan: Silvio Abraham is a 73 yo man with PMH of DMII (diet controlled not on meds) , epilepsy on AED, CKD stage III (baseline creatinine ~1.5), CAD, CVA with residual weakness and dysphagia, hx DVTs, and HTN who presented from [facility] with AMS, found with leukocytosis 15.5, hyperkalemia 7.1, BUN/Cr 96/5.7, ABG 7.16/37/86.5/13.2, BNP 1640, glucose 1501, troponin 0.103, and positive ketones in urine, admitted to medical ICU for DKA, possible PNA, JERMAN on CKD with hyperkalemia, and likely demand STEMI. Patient now with resolved DKA, stable for transfer to [facility] today. Neuro: Metabolic encephalopathy - improving, hx of epilepsy - Encephalopathy in setting of DKA, JERMAN, and possible infection. Mental status much improved today. - Treatment of DKA and infection as per below - CT head without acute pathology, chronic small vessel changes, cerebral parenchymal volume loss 2/2 age - Noted facial twitching on exam, no tonic clonic movements (per sister patient gets generalized seizures) on admission. Facial twitching now resolved and mental status much improved. Low suspicion for active seizure. F/U EEG performed yesterday in ICU. - Continue home keppra 500mg BID - Hold home gabapentin 400mg PO BID given AMS and JERMAN - No longer requiring soft wrist restraints, cooperative now Endo: DKA - resolved, hx DMII (not on medications) with hyperglycemia - Glucose 1501, AG 20, +ketones in urine ABG 7.169/37/86.5/13.2 on admission - DKA resolved today, AG closed x2 on BMP - Stop insulin gtt today after overlapping with subq levemir. Weight based basal bolus levemir 25U this morning and novolog 7U TID with meals with standard sliding scale. - Monitor FS ACHS - S/p aggressive IVF including NS, 1/2NS with KCl. Change to D5W this morning due to hypernatremia - hgb A1C 12 this admission. Will need insulin on discharge. Nephro: JERMAN on CKD (baseline creatinine ~1.5) - improving, hyperkalemia in setting of JERMAN and acidemia - resolved, hypokalemia - resolved, metabolic acidosis - resolved, severe hypernatremia - BUN/Cr 96/5.7 on admission, now improved to 72/3.9 - Likely prerenal 2/2 severe dehydration - Aggressive IVF as per above - EKG with peak T waves on admission - s/p insulin, calcium gluconate, sodium bicarb x1 in ED - Hyperkalemia resolved with insulin with development of subsequent hypokalemia due to shift, now resolved with repletion. - Metabolic acidosis resolved with resolution of DKA - Severe hypernatremia, Na 165, 2/2 severe dehydration now showing with resolution of hyperglycemia. - Free water deficit of 8.8L. Start D5W@ 125cc/hr today. Will need to watch FS closely. Encourage free water intake. - Monitor BMP q8-12hrs. Avoid overcorrection of sodium. - Strict I/Os monitoring ID/Pulm: Sepsis 2/2 possible PNA - Possible PNA as trigger for DKA, question aspiration given patient's hx of seizures and dysphagia and RN report of coughing with water this morning - CXR with atelectasis vs infiltrate in medial lung basis - Afebrile with leukocytosis 15.5 on admission. WBC up to 19.1 today - Lactic 2.3-->2.6-->1.9 resolved lactic acidosis - Zosyn 2.25mg IV q8hr renally (12/28- ) Plan for 5-7 days course pending clinical improvement - F/U BCX - UA unremarkable for acute infection - Currently satting well on RA - Aspiration precautions CVS: Demand NSTEMI, hx HTN, CAD, DVTs - Troponin 0.103 on admission, without ST EKG changes, likely demand ischemia in setting of JERMAN on CKD and DKA/sepsis - Repeat troponin 0.772 this morning, patient remains asymptomatic, demand ischemia, trend to downtrend - Continue home aspirin 81mg PO daily - Continue home metoprolol 25mg PO BID - Hold home losartan 50mg PO daily given JERMAN - Resume home amlodipine 5mg PO daily and clonidine 0.1mg PO BID as BP rising today - Continue home eliquis, change to renal dose 2.5mg PO BID GI: hx dysphagia - Reportedly on mechanical soft thin liquids at SNF - Bedside swallow evaluation then start puree nectar thick diet for now, formal HOME MISSION WORKER eval tomorrow - Aspiration precautions, supervision with PO intake - IVF as per above FEN: D5W @125cc/hr Puree diet nectar thick liquids D/C severino, use bedside urinal for strict I/Os Full Code Transfer to tele today Discussed with ICU Dr. Strickland, RN. I spent 45 minutes on this patient's case with >50% on counseling and coordination of care. I spent 30 minutes of critical care time. Subjective Date patient seen: Dec 29, 2018 Constitutional: Reports: weakness HEENT: Reports: no symptoms Cardiovascular: Reports: no symptoms Respiratory: Reports: other - cough with drinking Gastrointestinal/Abdominal: Reports: no symptoms Genitourinary: Reports: other - severino in place Neurologic/Psychiatric: Reports: no symptoms Endocrine: Reports: no symptoms Hematologic/Lymphatic: Reports: no symptoms Allergies: Coded Allergies: CODEINE (Unverified Allergy, Unknown, 10/16/18) Subjective Patient seen and examined. Mental status much improved. Awake answers appropriately, oriented to name and hospital. Denies pain. States he does have hx of DM but is not taking any medications for it. Objective Last 24 Hour Vital Signs Date Time Temp Pulse Resp B/P (MAP) Pulse Ox O2 Delivery O2 Flow Rate FiO2 12/29/18 12:00 88 12/29/18 12:00 Room Air 12/29/18 11:43 132/77 12/29/18 11:43 87 132/77 12/29/18 10:00 87 18 132/77 (95) 100 12/29/18 09:21 98 167/82 12/29/18 09:00 96 17 158/74 (102) 100 12/29/18 08:00 99 12/29/18 08:00 Room Air 12/29/18 08:00 98.1 103 17 133/89 (104) 100 12/29/18 07:00 98 20 167/82 (110) 100 12/29/18 06:00 95 17 154/66 (95) 100 12/29/18 05:00 96 16 159/70 (99) 100 12/29/18 04:00 Room Air 12/29/18 04:00 98 12/29/18 04:00 101 19 158/95 (116) 100 12/29/18 03:00 99 19 160/85 (110) 100 12/29/18 02:00 98 19 150/79 (102) 100 12/29/18 01:00 99 19 154/105 (121) 100 12/29/18 00:00 Room Air 12/29/18 00:00 96 12/29/18 00:00 97.8 101 18 139/84 (102) 100 12/28/18 23:00 95 20 132/71 (91) 99 12/28/18 22:00 104 20 138/82 (100) 99 12/28/18 21:00 101 18 145/81 (102) 98 12/28/18 20:52 104 130/99 12/28/18 20:00 98.0 108 21 130/99 (109) 99 12/28/18 20:00 101 12/28/18 20:00 Room Air 12/28/18 19:00 101 19 139/72 (94) 98 12/28/18 18:00 105 18 117/90 (99) 99 12/28/18 17:00 104 20 121/68 (85) 99 12/28/18 16:28 97.3 92 19 146/72 98 Room Air 12/28/18 16:00 Room Air 12/28/18 16:00 105 19 148/77 (100) 99 12/28/18 16:00 104 12/28/18 15:00 103 19 149/77 (101) 99 12/28/18 14:00 98.2 97 20 131/85 (100) 100 Intake and Output 12/28/18 12/29/18 19:00 07:00 Intake Total 8050.25 ml 2070.0 ml Output Total 1220 ml 685 ml Balance 6830.25 ml 1385.0 ml Intake IV Total 8050.25 ml 1890.0 ml Tube Feeding 180 ml Output Urine Total 1220 ml 685 ml # Bowel Movements 12 Laboratory Tests 12/28/18 15:20: Sodium Level 156H, Potassium Level 3.1L, Chloride Level 119H, Carbon Dioxide Level 23, Anion Gap 14, Blood Urea Nitrogen 87H, Creatinine 4.7H, Estimat Glomerular Filtration Rate , Glucose Level 740#*H, Lactic Acid Level 1.90, Calcium Level 9.7, Troponin I 0.156H 12/28/18 19:00: Sodium Level 158H, Potassium Level 3.7, Chloride Level 121H, Carbon Dioxide Level 26, Anion Gap 11, Blood Urea Nitrogen 85H, Creatinine 4.7H, Estimat Glomerular Filtration Rate , Glucose Level 499#H, Calcium Level 9.8 12/29/18 05:30: Sodium Level 165*H, Potassium Level 3.8, Chloride Level 129H, Carbon Dioxide Level 25, Anion Gap 11, Blood Urea Nitrogen 72H, Creatinine 3.9H, Estimat Glomerular Filtration Rate , Glucose Level 125#H, Calcium Level 9.5, Troponin I 0.772H, White Blood Count 19.1H, Red Blood Count 4.94, Hemoglobin 14.9, Hematocrit 45.2, Mean Corpuscular Volume 91#, Mean Corpuscular Hemoglobin 30.1, Mean Corpuscular Hemoglobin Concent 33.0, Red Cell Distribution Width 11.7, Platelet Count 184, Mean Platelet Volume 9.5, Neutrophils (%) (Auto) , Lymphocytes (%) (Auto) , Monocytes (%) (Auto) , Eosinophils (%) (Auto) , Basophils (%) (Auto) , Differential Total Cells Counted 100, Neutrophils % ( Manual) 76H, Lymphocytes % (Manual) 10L, Monocytes % (Manual) 12H, Eosinophils % (Manual) 0, Basophils % (Manual) 0, Band Neutrophils 2, Platelet Estimate Adequate, Platelet Morphology Normal, Red Blood Cell Morphology Normal, Prothrombin Time 10.7, Prothromb Time International Ratio 1.0, Activated Partial Thromboplast Time 26, Phosphorus Level 2.8 Height (Feet): 5 Height (Inches): 8.00 Weight (Pounds): 200 General Appearance: no apparent distress, alert, other - AAOx2, mental status much improved, answers appropriately, follow simple commands EENT: PERRL/EOMI Neck: supple Cardiovascular: normal peripheral pulses, normal rate, regular rhythm Respiratory/Chest: other - Coarse breath sounds bilaterally, no wheezing Abdomen: normal bowel sounds, non tender, soft Genitourinary/Rectal: other - severino in place Extremities: non-tender Edema: no edema noted Arm (L), no edema noted Arm (R), no edema noted Leg (L), no edema noted Leg (R), no edema noted Pedal (L), no edema noted Pedal (R), no edema noted Generalized Neurologic: alert, responsive Skin: warm/dry Melissa Campos M.D. Dec 29, 2018 14:17
[2018-12-29] MEDS ORDERED: NS 275ml ONE (15:37)
[2018-12-29] MEDS ORDERED: Tubing IV Secondary IV ONE (15:37)
--- NOTE | 2018-12-29 16:30 | Electroencephalogram ---
DATE OF PROCEDURE: 12/28/2018 READING PHYSICIAN: Godwin Gonzalez M.D. PROCEDURE PERFORMED: EEG. HISTORY: This EEG was performed on a 73-year-old gentleman with a history of an alteration in mental state who was found unresponsive. The patient has been poorly responsive ever since and the purpose of this EEG was to evaluate the patient for the degree and type of cerebral dysfunction. TECHNICAL NOTE: This EEG was performed on a [employer] with electrodes placed on the scalp according to the International 10-20 system. [id number] and [id number] montages were used. The EEG was of technically mediocre quality due to the fact that an adequate number of montages were not used and in addition EMG, movement and electrode artifact was seen quite frequently. The EEG was performed while the patient was in an obtunded state. OBSERVATIONS: In the reportedly poorly responsive state, the background activity consisted of 1.5-2 Hz delta and 3.5-4 Hz theta activity. No definite focal abnormalities or epileptiform discharges were seen. IMPRESSION: This is an abnormal EEG characterized by slowing of the background in the delta and theta range. COMMENT: This study is consistent with an encephalopathy of a moderately severe degree. Clinical correlation is recommended. Godwin Gonzalez M.D., M.S.P.H. DR: [place] JOB#: [id number]
[2018-12-29 16:35] LABS: ANION GAP 12 mmol/L (5-15); BLOOD UREA NITROGEN 61 mg/dL (7-18); CALCIUM 8.8 MG/DL (8.5-10.1); CARBON DIOXIDE 21 MMOL/L (21-32); CHLORIDE 125 MMOL/L (98-107); CREATININE 3.3 MG/DL (0.55-1.30); POTASSIUM 4.8 MMOL/L (3.5-5.1); SODIUM 158 MMOL/L (136-145)
--- NOTE | 2018-12-29 17:30 | NUR ---
TRANSFER TO FLOOR: Patient transferred to Tele via hospital bed per MD order. Hand off report given to Lester HAYNES. Tele monitor was placed on pt, displays NSR. Pt's belonging's list was signed with the receiving nurse in front of the pt. Endorsed plan of care.
--- NOTE | 2018-12-29 19:45 | NUR ---
NURSE NOTES: Received pt from DALLAS Batista. Pt asleep. Bed in lowest position. Call light within reach. Julian was DC'd, awaiting patient to e. Will continue to monitor.
--- NOTE | 2018-12-29 19:45 | NUR ---
NURSE NOTES: Spoke with Dr Flanagan after BMP lab resulted showing improved levels of sodium but high bl sugar (see flowsheet). No new orders, stated to continue plan of D5 IVF for improving Na levels. Addendum: 12/29/18 at 1950 by Kirk Smith RN Received patient from DALLAS Valle at ICU at 6pm. Endorsed Na levels and IVF plan to remedy as well as due to void after severino removal done by CAUSTIC OPERATOR at 530pm. patient in bed lowest locked position with alarm on and call stiles and urinal in reach. Multiple bedside checks on patient to provide emotional support and active listening.
[2018-12-30] VITALS: BP 142/76
[2018-12-30 04:00] VITALS: BP 150/89
[2018-12-30] MEDS: NovoLOG Insulin Flexpen SUBQ SCH ×6 (05:41→21:04)
[2018-12-30] MEDS: Piperacillin/Tazobactam 2.25 GM in NS 110 ML IVPB SCH (05:41)
[2018-12-30] MEDS ORDERED: NovoLOG Insulin Flexpen SUBQ SCH (06:30)
--- NOTE | 2018-12-30 07:33 | NUR ---
HAND-OFF: Report given to DALLAS Mc. Pt stable.
--- NOTE | 2018-12-30 07:37 | NUR ---
NURSE NOTES: Called and reported BG of [id number] Ab Valdes, who is covering for Dr. Flanagan. Awaiting call back.
[2018-12-30 07:46] LABS: BASOPHILS % (AUTO) 0.9 % (0.0-2.0); EOSINOPHILS % (AUTO) 1.4 % (0.0-3.0); HEMATOCRIT 42.6 % (42.0-52.0); HEMOGLOBIN 13.8 G/DL (14.2-18.0); LYMPHOCYTES % (AUTO) 19.6 % (20.0-45.0); MEAN CORPUSCULAR VOLUME 94 FL (80-99); MONOCYTES % (AUTO) 8.3 % (1.0-10.0); NEUTROPHILS % (AUTO) 69.8 % (45.0-75.0); PLATELET COUNT 163 K/UL (150-450); RED BLOOD COUNT 4.53 M/UL (4.70-6.10); RED CELL DISTRIBUTION WIDTH 11.9 % (11.6-14.8); WHITE BLOOD COUNT 10.1 K/UL (4.8-10.8)
[2018-12-30 07:57] LABS: ANION GAP 11 mmol/L (5-15); BLOOD UREA NITROGEN 44 mg/dL (7-18); CARBON DIOXIDE 22 MMOL/L (21-32); CHLORIDE 121 MMOL/L (98-107); CREATININE 2.8 MG/DL (0.55-1.30); POTASSIUM 4.4 MMOL/L (3.5-5.1); SODIUM 154 MMOL/L (136-145)
[2018-12-30 08:00] VITALS: BP 142/78
--- NOTE | 2018-12-30 08:14 | NUR ---
NURSE NOTES: Report received from DALLAS Terry. Pt is sitting up in bed eating breakfast with no signs of distress. A+Ox3, denies pain/SOB. Respirations are even and unlabored on room air. IV site is intact and running fluids @ prescribed rate. Bed is at lowest position, brakes engaged, siderails x2, bed alarm on, and call light within reach. Pt is in stable condition at this time; will continue to monitor.
--- NOTE | 2018-12-30 09:07 | General Progress Note ---
Assessment/Plan Status: progressing - improving Assessment/Plan: Silvio Abraham is a 73 yo man with PMH of DMII (diet controlled not on meds) , epilepsy on AED, CKD stage III (baseline creatinine ~1.5), CAD, CVA with residual weakness and dysphagia, hx DVTs, and HTN who presented from [facility] with AMS, found with leukocytosis 15.5, hyperkalemia 7.1, BUN/Cr 96/5.7, ABG 7.16/37/86.5/13.2, BNP 1640, glucose 1501, troponin 0.103, and positive ketones in urine, admitted to medical ICU for DKA, possible PNA, JERMAN on CKD with hyperkalemia, and likely demand STEMI. Patient now with resolved DKA, stable for transferred to telemetry. Neuro: Metabolic encephalopathy - improving, hx of epilepsy - Encephalopathy in setting of DKA, JERMAN, and possible infection. Mental status much improved. - Treatment of DKA and infection as per below - CT head without acute pathology, chronic small vessel changes, cerebral parenchymal volume loss 2/2 age. EEG: Diffuse encephalopathy. - Noted facial twitching on exam, no tonic clonic movements (per sister patient gets generalized seizures) on admission. Facial twitching now resolved and mental status much improved. Low suspicion for active seizure. EEG: Diffuse encephalopathy. - Continue home keppra 500mg BID - Hold home gabapentin 400mg PO BID given AMS and JERMAN - No longer requiring soft wrist restraints, cooperative now Endo: DKA - resolved, hx DMII (not on medications) with hyperglycemia - Glucose 1501, AG 20, +ketones in urine ABG 7.169/37/86.5/13.2 on admission - DKA resolved today, AG closed x2 on BMP - Stop insulin gtt after overlapping with subq levemir. Weight based basal bolus levemir 25U morning, add Levemir 10 units QHD and novolog 10U TID with meals with standard sliding scale. - Monitor FS ACHS - S/p aggressive IVF including NS, 1/2NS with KCl. Changed to D5W this morning due to hypernatremia - hgb A1C 12 this admission. Will need insulin on discharge. Nephro: JERMAN on CKD (baseline creatinine ~1.5) - improving, hyperkalemia in setting of JERMAN and acidemia - resolved, hypokalemia - resolved, metabolic acidosis - resolved, severe hypernatremia - BUN/Cr 96/5.7 on admission, now improved to 72/3.9 - Likely prerenal 2/2 severe dehydration - Aggressive IVF as per above - EKG with peak T waves on admission - s/p insulin, calcium gluconate, sodium bicarb x1 in ED - Hyperkalemia resolved with insulin with development of subsequent hypokalemia due to shift, now resolved with repletion. - Metabolic acidosis resolved with resolution of DKA - Severe hypernatremia, Na 165, 2/2 severe dehydration now showing with resolution of hyperglycemia. - Free water deficit of 8.8L. Start D5W@ 125cc/hr today. Will need to watch FS closely. Encourage free water intake. - Monitor BMP q8-12hrs. Avoid overcorrection of sodium. - Strict I/Os monitoring ID/Pulm: Sepsis 2/2 possible PNA - Possible PNA as trigger for DKA, question aspiration given patient's hx of seizures and dysphagia and RN report of coughing with water this morning - CXR with atelectasis vs infiltrate in medial lung basis - Afebrile with leukocytosis 15.5 on admission. WBC up to 19.1 - Lactic 2.3-->2.6-->1.9 resolved lactic acidosis - Zosyn 2.25mg IV q8hr renally (12/28- ) Plan for 5-7 days course pending clinical improvement - -Blood cultures: One bottle positive, aerobic Gram positive cocci in clusters. ID consult: Dr. De Anda. Will give one dose of vancomycin while awaiting ID evaluation. - UA unremarkable for acute infection - Currently satting well on RA - Aspiration precautions CVS: Demand NSTEMI, hx HTN, CAD, DVTs - Troponin 0.103 on admission, without ST EKG changes, likely demand ischemia in setting of JERMAN on CKD and DKA/sepsis - Repeat troponin 0.772 this morning, patient remains asymptomatic, demand ischemia, trend to downtrend - Continue home aspirin 81mg PO daily - Continue home metoprolol 25mg PO BID - Hold home losartan 50mg PO daily given JERMAN - Resume home amlodipine 5mg PO daily and clonidine 0.1mg PO BID as BP rising today - Continue home eliquis, change to renal dose 2.5mg PO BID -Cardiology consult: Dr. Mendieta. 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 Mendieta. I spent 40 minutes on this patient's case with > 50% on counseling and coordination of care. I spent 30 minutes of critical care time. Subjective Date patient seen: Dec 30, 2018 ROS Limited/Unobtainable: Yes Allergies: Coded Allergies: CODEINE (Unverified Allergy, Unknown, 10/16/18) Subjective seen at bedside. Alert, oriented x2. poor historian Objective Last 24 Hour Vital Signs Date Time Temp Pulse Resp B/P (MAP) Pulse Ox O2 Delivery O2 Flow Rate FiO2 12/30/18 08:00 97.7 88 18 142/78 (99) 97 12/30/18 04:00 Room Air 12/30/18 04:00 75 12/30/18 04:00 97.9 82 19 150/89 (109) 100 12/30/18 00:00 97.1 65 19 142/76 (98) 97 12/30/18 00:00 83 12/30/18 00:00 Room Air 12/29/18 21:15 80 136/77 12/29/18 20:00 97.7 80 19 136/77 (96) 100 12/29/18 20:00 86 12/29/18 20:00 Room Air 12/29/18 17:36 145/78 12/29/18 17:00 72 18 108/62 (77) 100 12/29/18 16:00 87 12/29/18 16:00 Room Air 12/29/18 16:00 98.4 80 16 112/70 (84) 100 12/29/18 15:00 80 18 110/60 (77) 100 12/29/18 14:00 84 18 109/65 (80) 100 12/29/18 13:00 84 18 133/83 (100) 100 12/29/18 12:00 88 12/29/18 12:00 Room Air 12/29/18 12:00 98.3 86 16 159/116 (130) 100 12/29/18 11:43 132/77 12/29/18 11:43 87 132/77 12/29/18 11:00 86 18 132/77 (95) 100 12/29/18 10:00 87 18 158/74 (102) 100 12/29/18 09:21 98 167/82 Intake and Output 12/29/18 12/30/18 19:00 07:00 Intake Total 1373 ml Output Total 445 ml 750 ml Balance 928 ml -750 ml Intake Oral 240 ml IV Total 1133 ml Output Urine Total 445 ml 750 ml Laboratory Tests 12/29/18 16:00: Sodium Level 158H, Potassium Level 4.8, Chloride Level 125H, Carbon Dioxide Level 21, Anion Gap 12, Blood Urea Nitrogen 61H, Creatinine 3.3H, Estimat Glomerular Filtration Rate , Glucose Level 309#H, Calcium Level 8.8 12/30/18 06:13: Sodium Level 154H, Potassium Level 4.4, Chloride Level 121H, Carbon Dioxide Level 22, Anion Gap 11, Blood Urea Nitrogen 44H, Creatinine 2.8H, Estimat Glomerular Filtration Rate , Glucose Level 371H, Calcium Level 9.0, White Blood Count 10.1, Red Blood Count 4.53L, Hemoglobin 13.8L, Hematocrit 42.6, Mean Corpuscular Volume 94, Mean Corpuscular Hemoglobin 30.5, Mean Corpuscular Hemoglobin Concent 32.4, Red Cell Distribution Width 11.9, Platelet Count 163, Mean Platelet Volume 11.2H, Neutrophils (%) (Auto) 69.8, Lymphocytes (%) (Auto) 19.6L, Monocytes (%) (Auto) 8.3, Eosinophils (%) (Auto) 1.4, Basophils (%) (Auto ) 0.9, Troponin I 0.366H Height (Feet): 5 Height (Inches): 8.00 Weight (Pounds): 210 Objective General Appearance: no apparent distress, alert, other - AAOx2, answers appropriately, follow simple commands EENT: PERRL/EOMI Neck: supple Cardiovascular: normal peripheral pulses, normal rate, regular rhythm Respiratory/Chest: other - Coarse breath sounds bilaterally, no wheezing Abdomen: normal bowel sounds, non tender, soft Genitourinary/Rectal: other - severino in place Extremities: non-tender Edema: no edema noted Arm (L), no edema noted Arm (R), no edema noted Leg (L), no edema noted Leg (R), no edema noted Pedal (L), no edema noted Pedal (R), no edema noted Generalized Neurologic: alert, responsive, + slurred speech Skin: warm/dry Clint Avendaño M.D. Dec 30, 2018 09:07
[2018-12-30] MEDS: Aspirin Baby 81mg ORAL SCH (09:16)
[2018-12-30] MEDS: Pantoprazole Inj IVP SCH ×2 (09:17→21:01)
[2018-12-30] MEDS: Metoprolol 25mg tab ORAL SCH ×2 (09:17→21:02)
[2018-12-30] MEDS: Eliquis 2.5mg tablet ORAL SCH ×2 (09:17→17:35)
[2018-12-30] MEDS: levETIRAcetam 500mg/NS100ml 100 ML IVPB SCH ×2 (09:20→21:02)
--- NOTE | 2018-12-30 09:20 | NUR ---
NURSE NOTES: Dr. Avendaño aware of elevated troponin level. No new orders.
[2018-12-30] MEDS: Levemir Flexpen SUBQ SCH ×2 (09:24→21:03)
--- NOTE | 2018-12-30 09:39 | NUR ---
NURSE NOTES: Pt's morning glucose check: 485. Spoke with Dr. Avendaño who increased his Novolog and Levemir.
[2018-12-30] MEDS ORDERED: Sennosides 8.6mg tab ORAL PRN (10:15)
--- NOTE | 2018-12-30 11:42 | Cardiology Report ---
APPROVED REPORT EKG Measurement Heart [id number] Normal sinus rhythm Left axis deviation LAE Nonspecific intraventricular block Nonspecific T wave abnormality Prolonged QT Abnormal ECG
[2018-12-30 12:00] VITALS: BP 151/91
[2018-12-30] MEDS ORDERED: Vancomycin 1.25gm/NS Premix 275 ML IVPB ONE (14:00)
--- NOTE | 2018-12-30 14:08 | Cardiac Electrophysiology PN ---
Subjective Subjective [id number] Objective Last 24 Hour Vital Signs Date Time Temp Pulse Resp B/P (MAP) Pulse Ox O2 Delivery O2 Flow Rate FiO2 12/30/18 12:00 98.3 74 20 151/91 (111) 95 12/30/18 09:17 88 142/78 12/30/18 09:16 142/78 12/30/18 09:16 88 142/78 12/30/18 09:00 Room Air 12/30/18 08:00 97.7 88 18 142/78 (99) 97 12/30/18 04:00 Room Air 12/30/18 04:00 75 12/30/18 04:00 97.9 82 19 150/89 (109) 100 12/30/18 00:00 97.1 65 19 142/76 (98) 97 12/30/18 00:00 83 12/30/18 00:00 Room Air 12/29/18 21:15 80 136/77 12/29/18 20:00 97.7 80 19 136/77 (96) 100 12/29/18 20:00 86 12/29/18 20:00 Room Air 12/29/18 17:36 145/78 12/29/18 17:00 72 18 108/62 (77) 100 12/29/18 16:00 87 12/29/18 16:00 Room Air 12/29/18 16:00 98.4 80 16 112/70 (84) 100 12/29/18 15:00 80 18 110/60 (77) 100 Intake and Output 12/29/18 12/30/18 19:00 07:00 Intake Total 1373 ml Output Total 445 ml 750 ml Balance 928 ml -750 ml Intake Oral 240 ml IV Total 1133 ml Output Urine Total 445 ml 750 ml Laboratory Tests Test 12/29/18 16:00 12/30/18 06:13 Sodium Level 158 MMOL/L (136-145) H 154 MMOL/L (136-145) H Potassium Level 4.8 MMOL/L (3.5-5.1) 4.4 MMOL/L (3.5-5.1) Chloride Level 125 MMOL/L (98-107) H 121 MMOL/L (98-107) H Carbon Dioxide Level 21 MMOL/L (21-32) 22 MMOL/L (21-32) Anion Gap 12 mmol/L (5-15) 11 mmol/L (5-15) Blood Urea Nitrogen 61 mg/dL (7-18) H 44 mg/dL (7-18) H Creatinine 3.3 MG/DL (0.55-1.30) H 2.8 MG/DL (0.55-1.30) H Estimat Glomerular Filtration Rate mL/min (>60) mL/min (>60) Glucose Level 309 MG/DL (74-106) #H 371 MG/DL (74-106) H Calcium Level 8.8 MG/DL (8.5-10.1) 9.0 MG/DL (8.5-10.1) White Blood Count 10.1 K/UL (4.8-10.8) Red Blood Count 4.53 M/UL (4.70-6.10) L Hemoglobin 13.8 G/DL (14.2-18.0) L Hematocrit 42.6 % (42.0-52.0) Mean Corpuscular Volume 94 FL (80-99) Mean Corpuscular Hemoglobin 30.5 PG (27.0-31.0) Mean Corpuscular Hemoglobin Concent 32.4 G/DL (32.0-36.0) Red Cell Distribution Width 11.9 % (11.6-14.8) Platelet Count 163 K/UL (150-450) Mean Platelet Volume 11.2 FL (6.5-10.1) H Neutrophils (%) (Auto) 69.8 % (45.0-75.0) Lymphocytes (%) (Auto) 19.6 % (20.0-45.0) L Monocytes (%) (Auto) 8.3 % (1.0-10.0) Eosinophils (%) (Auto) 1.4 % (0.0-3.0) Basophils (%) (Auto) 0.9 % (0.0-2.0) Troponin I 0.366 ng/mL (0.000-0.056) Microbiology Date/Time Source Procedure Growth Status 12/28/18 10:45 Blood Blood Culture - Preliminary NO GROWTH AFTER 24 HOURS Resulted 12/28/18 10:39 Blood Blood Culture - Preliminary Gram Positive Cocci Resulted 12/28/18 06:20 Blood Blood Culture - Preliminary NO GROWTH AFTER 24 HOURS Resulted 12/28/18 06:20 Blood Blood Culture - Preliminary NO GROWTH AFTER 24 HOURS Resulted 12/28/18 07:00 Nasal Nares MRSA Culture - Final NO METHICILLIN RESISTANT STAPH AUREUS... Complete 12/28/18 07:00 Rectum VRE Culture - Final NO VANCOMYCIN RESISTANT ENTEROCOCCUS ... Complete 12/28/18 07:00 Rectum Received Raymon Mendieta MD Dec 30, 2018 14:08
[2018-12-30] MEDS: Zoysn 3.37gm in NS 100ML IVPB SCH ×2 (14:20→21:06)
--- NOTE | 2018-12-30 14:43 | NUR ---
ST NOTES: REFERRED FOR SWALLOW EVAL BY DR DIAS, SEE FULL REPORT TO FOLLOW. 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 H/O OROPHARYNGEAL DYSPHAGIA (ESPECIALLY WITH THIN LIQUIDS SEE SWALLOW EVAL AT [facility] ON 10/17/18 TWO MONTHS AGO, HAD GT IN THE PAST. PLACED ON CCHO MECH SOFT FINELY CHOPPED DIET AND NECTAR THICK LIQUIDS AT THAT TIME AND MOD BARIUM SWALLOW STUDY ORDERED NOT COMPLETED DUE TO SCHEDULE CONFLICTS. AT [facility] ON A 1800 ADA MECH SOFT CHPPED AND THIN LIQUIDS. PATIENT DISLIKES PUREED AND INTAKE FLUCTUATES (0 TO 100%). CURRENTLY ON CCHO-LOW PUREED AND NECTAR THICK LIQUID DIET. ALERT AND ABLE TO EXPRESS BASIC NEEDS. SPEECH IS INTELLIGIBLE BUT DYSARTHRIC (SLOWER RATE AND LESS PRECISE ARTICULATION). INITIAL IMPRESSIONS: S/S OF A PERSISTENT MILD TO MODERATE OROPHARYNGEAL DYSPHAGIA WITH INCREASED TRANSIT TIMES. GIVEN THIN LIQUIDS VIA STRAW SEQUENTIAL SIPS (3 OZ WATER REHAN SWALLOW PROTOCOL), ABLE TO DRINK HALF OF AMOUNT BUT THEN NEEDED TO BREATHE. NO OVERT S/S OF ASPIRATION BUT HAS SILENT ASPIRATION AND POSS PNA RISKS GIVEN PUREED TSP, TENDS TO CHEW UNNECESSARILY FOR A FEW SECONDS AND SWALLOWS WITH FAIR HYOLARYNGEAL EXCURSION W/O ORAL RESIDUE AND OVERT ASPIRATION. GIVEN NECTAR THICK LIQUIDS VIA STRAW SEQUENTIAL SIPS, NO ORAL RESIDUE NOR OVERT ASPIRATION NO UPPER DENTITION AND SOME LOWER ANTERIOR DENTITION WILL HOLD ON MASTICATED SOLIDS FOR NOW. RECOMMENDATIONS: CONTINUE WITH CURRENT DIET OF PUREED AND NECTAR THICK LIQUIDS (CCHO-LOW OR PENDING RD RECOMMENDATIONS) WITH POSTED ASPIRATION / REFLUX PRECAUTIONS WITH ONE TO ONE FEEDING COMPLETE MOD BARIUM SWALLOW STUDY IN OR OP IF DC TO FURTHER ASSESS SWALLOW, DETERMINE SILENT ASP RISK/ETIOLOGY, AND ATTEMPT TRIAL TX. SKILLED DYSPHAGIA MANAGEMENT AND TX AND COG-COM EVAL/TX EDUCATED/TRAINED STAFF IN POSTED PRECAUTIONS.
[2018-12-30 16:00] VITALS: BP 147/80
--- NOTE | 2018-12-30 16:50 | Pulmonology Progress Note ---
Assessment/Plan Problems: (1) DKA (diabetic ketoacidoses) (2) Acute kidney injury superimposed on CKD (3) Metabolic encephalopathy (4) Seizure (5) Hyperglycemia (6) Acidemia (7) History of chronic hypertension (8) Diabetes mellitus (9) History of hyperlipidemia (10) History of neuropathy (11) History of DVT (deep vein thrombosis) (12) CAD (coronary artery disease) (13) Elevated troponin (14) Sepsis Assessment/Plan Optimize pulmonary hygiene/mobilize as tolerated PRN O2 PRN HHN's Abx (Zosyn, Vanco), repeat Cx's, ID eval Monitor volumes and renal function, IVF hydration, replete free water Diet per LEAD SOFTWARE DEVELOPMENT ENGINEER with STRICT aspiration precautions DVT Px: Eliquis Monitor MS FC, continue to discuss GOC Subjective Allergies: Coded Allergies: CODEINE (Unverified Allergy, Unknown, 10/16/18) Subjective TTF AFVSS on RA x for elevated BP 1/2 GPC in blood LEAD SOFTWARE DEVELOPMENT ENGINEER eval noted Leukocytosis resolved, Na better, Cr better, trop downtrending No cough, no SOB, no CP, no FC Objective Last 24 Hour Vital Signs Date Time Temp Pulse Resp B/P (MAP) Pulse Ox O2 Delivery O2 Flow Rate FiO2 12/30/18 16:00 98.2 78 18 147/80 (102) 97 12/30/18 12:00 98.3 74 20 151/91 (111) 95 12/30/18 12:00 79 12/30/18 09:17 88 142/78 12/30/18 09:16 142/78 12/30/18 09:16 88 142/78 12/30/18 09:00 Room Air 12/30/18 08:00 97.7 88 18 142/78 (99) 97 12/30/18 08:00 86 12/30/18 04:00 Room Air 12/30/18 04:00 75 12/30/18 04:00 97.9 82 19 150/89 (109) 100 12/30/18 00:00 97.1 65 19 142/76 (98) 97 12/30/18 00:00 83 12/30/18 00:00 Room Air 12/29/18 21:15 80 136/77 12/29/18 20:00 97.7 80 19 136/77 (96) 100 12/29/18 20:00 86 12/29/18 20:00 Room Air 12/29/18 17:36 145/78 12/29/18 17:00 72 18 108/62 (77) 100 Intake and Output 12/29/18 12/30/18 19:00 07:00 Intake Total 1373 ml Output Total 445 ml 750 ml Balance 928 ml -750 ml Intake Oral 240 ml IV Total 1133 ml Output Urine Total 445 ml 750 ml General Appearance: no acute distress, other - dysarthria HEENT: normocephalic, atraumatic, anicteric, mucous membranes moist Respiratory/Chest: chest wall non-tender, lungs clear, normal breath sounds, no respiratory distress, no accessory muscle use Cardiovascular: normal peripheral pulses, normal rate, regular rhythm Abdomen: normal bowel sounds, soft, non tender, no organomegaly, non distended , no mass Extremities: no cyanosis, no clubbing, no edema Microbiology Date/Time Source Procedure Growth Status 12/28/18 10:45 Blood Blood Culture - Preliminary NO GROWTH AFTER 24 HOURS Resulted 12/28/18 10:39 Blood Blood Culture - Preliminary Gram Positive Cocci Resulted 12/28/18 06:20 Blood Blood Culture - Preliminary NO GROWTH AFTER 24 HOURS Resulted 12/28/18 06:20 Blood Blood Culture - Preliminary NO GROWTH AFTER 24 HOURS Resulted 12/28/18 07:00 Nasal Nares MRSA Culture - Final NO METHICILLIN RESISTANT STAPH AUREUS... Complete 12/28/18 07:00 Rectum VRE Culture - Final NO VANCOMYCIN RESISTANT ENTEROCOCCUS ... Complete 12/28/18 07:00 Rectum Received Laboratory Tests 12/30/18 06:13: White Blood Count 10.1, Red Blood Count 4.53L, Hemoglobin 13.8L, Hematocrit 42.6 , Mean Corpuscular Volume 94, Mean Corpuscular Hemoglobin 30.5, Mean Corpuscular Hemoglobin Concent 32.4, Red Cell Distribution Width 11.9, Platelet Count 163, Mean Platelet Volume 11.2H, Neutrophils (%) (Auto) 69.8, Lymphocytes (%) (Auto) 19.6L, Monocytes (%) (Auto) 8.3, Eosinophils (%) (Auto) 1.4, Basophils (%) (Auto) 0.9, Sodium Level 154H, Potassium Level 4.4, Chloride Level 121H, Carbon Dioxide Level 22, Anion Gap 11, Blood Urea Nitrogen 44H, Creatinine 2.8H, Estimat Glomerular Filtration Rate , Glucose Level 371H, Calcium Level 9.0, Troponin I 0.366H Current Medications Medications (Trade) Dose Ordered Sig/Sheeba Route PRN Reason Start Time Stop Time Status Last Admin Dose Admin Acetaminophen (Tylenol) 650 mg Q6HR PRN ORAL pain or fever T>101 12/29/18 18:30 01/28/19 18:29 Amlodipine Besylate (Norvasc) 5 mg DAILY ORAL 12/30/18 09:00 01/28/19 10:44 12/30/18 09:16 Apixaban (Eliquis) 2.5 mg BID ORAL 12/30/18 09:00 01/27/19 10:44 12/30/18 09:17 Aspirin (ASA) 81 mg DAILY ORAL 12/30/18 09:00 01/28/19 08:59 12/30/18 09:16 Clonidine HCl (Catapres Tab) 0.1 mg BID ORAL 12/30/18 09:00 01/28/19 10:44 12/30/18 09:16 Dextrose 1,000 ml @ 75 mls/hr [id number] IV 12/30/18 18:30 01/28/19 18:29 12/30/18 14:22 Dextrose (Dextrose 50%) 25 ml Q30M PRN IV Hypoglycemia 12/29/18 18:15 01/27/19 09:44 Dextrose (Dextrose 50%) 50 ml Q30M PRN IV Hypoglycemia 12/29/18 18:15 01/27/19 09:44 Docusate Sodium (Colace) 100 mg TWICE A DAY ORAL 12/30/18 18:00 01/29/19 17:59 Insulin Aspart (NovoLOG) BEFORE MEALS AND HS SUBQ 12/29/18 21:00 01/28/19 11:29 12/30/18 16:41 Insulin Aspart (NovoLOG) 10 units NOVOTIAC SUBQ 12/30/18 11:50 01/28/19 11:49 12/30/18 16:41 Insulin Detemir (Levemir) 10 units BEDTIME SUBQ 12/30/18 21:00 01/29/19 20:59 Insulin Detemir (Levemir) 25 units DAILY SUBQ 12/30/18 09:00 01/28/19 10:29 12/30/18 09:24 Levetiracetam 100 ml @ 400 mls/hr Q12HR IVPB 12/29/18 21:00 01/27/19 10:29 12/30/18 09:20 Metoprolol Tartrate (Lopressor) 25 mg Q12HR ORAL 12/29/18 21:00 01/27/19 20:59 12/30/18 09:17 Pantoprazole (Protonix) 40 mg EVERY 12 HOURS IVP 12/29/18 21:00 01/27/19 20:59 12/30/18 09:17 Piperacillin Sod/ Tazobactam Sod 3.375 gm/Sodium Chloride 110 ml @ 27.5 mls/hr EVERY 8 HOURS IVPB 12/30/18 14:00 01/04/19 13:59 12/30/18 14:20 Sennosides (Senokot) 8.6 mg DAILY PRN ORAL Constipation 12/30/18 10:15 01/29/19 10:14 12/30/18 12:51 Marcelino Strickland MD Dec 30, 2018 16:50
[2018-12-30] MEDS ORDERED: Albuterol/Ipratropium 3ml neb HHN PRN (17:00)
--- NOTE | 2018-12-30 17:42 | Infectious Diseases Prog Note ---
Assessment/Plan Assessment/Plan Full consult dictated: A) 1) sepsis, sirs, ? pna, ? gram + bacteremia, leukocytosis, ams 2) allergies - codeine 3) pmh noted P) 1) zosyn and vancomycin 2) f/u on cultures, labs and chest x-ray 3) thank you Subjective Allergies: Coded Allergies: CODEINE (Unverified Allergy, Unknown, 10/16/18) Objective Vital Signs Last 24 Hour Vital Signs Date Time Temp Pulse Resp B/P (MAP) Pulse Ox O2 Delivery O2 Flow Rate FiO2 12/30/18 16:00 98.2 78 18 147/80 (102) 97 12/30/18 16:00 80 12/30/18 12:00 98.3 74 20 151/91 (111) 95 12/30/18 12:00 79 12/30/18 09:17 88 142/78 12/30/18 09:16 142/78 12/30/18 09:16 88 142/78 12/30/18 09:00 Room Air 12/30/18 08:00 97.7 88 18 142/78 (99) 97 12/30/18 08:00 86 12/30/18 04:00 Room Air 12/30/18 04:00 75 12/30/18 04:00 97.9 82 19 150/89 (109) 100 12/30/18 00:00 97.1 65 19 142/76 (98) 97 12/30/18 00:00 83 12/30/18 00:00 Room Air 12/29/18 21:15 80 136/77 12/29/18 20:00 97.7 80 19 136/77 (96) 100 12/29/18 20:00 86 12/29/18 20:00 Room Air Height (Feet): 5 Height (Inches): 8.00 Weight (Pounds): 210 Microbiology Date/Time Source Procedure Growth Status 12/28/18 10:45 Blood Blood Culture - Preliminary NO GROWTH AFTER 24 HOURS Resulted 12/28/18 10:39 Blood Blood Culture - Preliminary Gram Positive Cocci Resulted 12/28/18 06:20 Blood Blood Culture - Preliminary NO GROWTH AFTER 24 HOURS Resulted 12/28/18 06:20 Blood Blood Culture - Preliminary NO GROWTH AFTER 24 HOURS Resulted 12/28/18 07:00 Nasal Nares MRSA Culture - Final NO METHICILLIN RESISTANT STAPH AUREUS... Complete 12/28/18 07:00 Rectum VRE Culture - Final NO VANCOMYCIN RESISTANT ENTEROCOCCUS ... Complete 12/28/18 07:00 Rectum Received Laboratory Tests Test 12/30/18 06:13 White Blood Count 10.1 K/UL (4.8-10.8) Red Blood Count 4.53 M/UL (4.70-6.10) L Hemoglobin 13.8 G/DL (14.2-18.0) L Hematocrit 42.6 % (42.0-52.0) Mean Corpuscular Volume 94 FL (80-99) Mean Corpuscular Hemoglobin 30.5 PG (27.0-31.0) Mean Corpuscular Hemoglobin Concent 32.4 G/DL (32.0-36.0) Red Cell Distribution Width 11.9 % (11.6-14.8) Platelet Count 163 K/UL (150-450) Mean Platelet Volume 11.2 FL (6.5-10.1) H Neutrophils (%) (Auto) 69.8 % (45.0-75.0) Lymphocytes (%) (Auto) 19.6 % (20.0-45.0) L Monocytes (%) (Auto) 8.3 % (1.0-10.0) Eosinophils (%) (Auto) 1.4 % (0.0-3.0) Basophils (%) (Auto) 0.9 % (0.0-2.0) Sodium Level 154 MMOL/L (136-145) H Potassium Level 4.4 MMOL/L (3.5-5.1) Chloride Level 121 MMOL/L (98-107) H Carbon Dioxide Level 22 MMOL/L (21-32) Anion Gap 11 mmol/L (5-15) Blood Urea Nitrogen 44 mg/dL (7-18) H Creatinine 2.8 MG/DL (0.55-1.30) H Estimat Glomerular Filtration Rate mL/min (>60) Glucose Level 371 MG/DL (74-106) H Calcium Level 9.0 MG/DL (8.5-10.1) Troponin I 0.366 ng/mL (0.000-0.056) Current Medications Medications (Trade) Dose Ordered Sig/Sheeba Route PRN Reason Start Time Stop Time Status Last Admin Dose Admin Acetaminophen (Tylenol) 650 mg Q6HR PRN ORAL pain or fever T>101 12/29/18 18:30 01/28/19 18:29 Albuterol/ Ipratropium (Albuterol/ Ipratropium) 3 ml Q4H PRN HHN Shortness of Breath 12/30/18 17:00 01/04/19 16:59 Amlodipine Besylate (Norvasc) 5 mg DAILY ORAL 12/30/18 09:00 01/28/19 10:44 12/30/18 09:16 Apixaban (Eliquis) 2.5 mg BID ORAL 12/30/18 09:00 01/27/19 10:44 12/30/18 09:17 Aspirin (ASA) 81 mg DAILY ORAL 12/30/18 09:00 01/28/19 08:59 12/30/18 09:16 Clonidine HCl (Catapres Tab) 0.1 mg BID ORAL 12/30/18 09:00 01/28/19 10:44 12/30/18 09:16 Dextrose 1,000 ml @ 75 mls/hr [id number] IV 12/30/18 18:30 01/28/19 18:29 12/30/18 14:22 Dextrose (Dextrose 50%) 25 ml Q30M PRN IV Hypoglycemia 12/29/18 18:15 01/27/19 09:44 Dextrose (Dextrose 50%) 50 ml Q30M PRN IV Hypoglycemia 12/29/18 18:15 01/27/19 09:44 Docusate Sodium (Colace) 100 mg TWICE A DAY ORAL 12/30/18 18:00 01/29/19 17:59 Insulin Aspart (NovoLOG) BEFORE MEALS AND HS SUBQ 12/29/18 21:00 01/28/19 11:29 12/30/18 16:41 Insulin Aspart (NovoLOG) 10 units NOVOTIAC SUBQ 12/30/18 11:50 01/28/19 11:49 12/30/18 16:41 Insulin Detemir (Levemir) 10 units BEDTIME SUBQ 12/30/18 21:00 01/29/19 20:59 Insulin Detemir (Levemir) 25 units DAILY SUBQ 12/30/18 09:00 01/28/19 10:29 12/30/18 09:24 Levetiracetam 100 ml @ 400 mls/hr Q12HR IVPB 12/29/18 21:00 01/27/19 10:29 12/30/18 09:20 Metoprolol Tartrate (Lopressor) 25 mg Q12HR ORAL 12/29/18 21:00 01/27/19 20:59 12/30/18 09:17 Pantoprazole (Protonix) 40 mg EVERY 12 HOURS IVP 12/29/18 21:00 01/27/19 20:59 12/30/18 09:17 Piperacillin Sod/ Tazobactam Sod 3.375 gm/Sodium Chloride 110 ml @ 27.5 mls/hr EVERY 8 HOURS IVPB 12/30/18 14:00 01/04/19 13:59 12/30/18 14:20 Sennosides (Senokot) 8.6 mg DAILY PRN ORAL Constipation 12/30/18 10:15 01/29/19 10:14 12/30/18 12:51 Vancomycin HCl (Vanco rx to dose) 1 ea DAILY PRN MISC Per rx protocol 12/30/18 17:30 01/29/19 17:29 Dung Sorto MD Dec 30, 2018 17:42
[2018-12-30] MEDS ORDERED: Docusate 100mg cap ORAL SCH (18:00)
--- NOTE | 2018-12-30 18:39 | NUR ---
CASE MANAGEMENT: INITIAL REVIEW 73 YO M BENJI FROM REHAB ON CC: ALOC PMHx: DM. CVA. SZ. HLD. SI:AMS. T 97 HR 82 RR 18 B/P 103/38 SATS 97% ON RA WBC 15.5 K 7.1 BUN 96 CR 5.7 GLU 1501 AST 12 BNP 1640 IS: NS BOLUS X3 ZOSYN IV X1 INSULIN HUMAN IV 10 UNIT INSULIN DRIP @ 12 mL/HR SODIUM BICARB IV X1 PATIENT ADMITTED TO TELE 12/28/2018 @ 1126 DCP: PATIENT TO BE DISCHARGED TO SNF ONCE MEDICALLY CLEARED. PLAN OF CARE: CXR EEG Addendum: 12/30/18 at 1847 by Susie Chaparro INTERQUAL MET
--- NOTE | 2018-12-30 19:32 | NUR ---
NURSE NOTES: Report given to DALLAS Terry. Pt is in stable condition; plan of care endorsed.
[2018-12-30 20:00] VITALS: BP 124/88
--- NOTE | 2018-12-30 20:10 | NUR ---
NURSE NOTES: Received pt from D[place] Mc. Pt awake, alert and talkative. Bed in lowest position. IV site intact and running D5W. Call light within reach. will continue to monitor.
--- NOTE | 2018-12-30 21:15 | Consultation ---
DATE OF CONSULTATION: 12/30/2018 INFECTIOUS DISEASE CONSULTATION CONSULTING PHYSICIAN: Dung Riley M.D. ATTENDING PHYSICIAN: Milagros Flanagan M.D. REFERRING PHYSICIAN: Clint Avendaño M.D. REASON FOR CONSULTATION: Sepsis and gram-positive bacteremia, possible pneumonia. HISTORY OF PRESENT ILLNESS: This is a very pleasant 73-year-old male, who comes in to [facility] from [facility] because he had altered mental status and was not verbally responsive. The patient has been noted and to have an elevated white count and possibly the patient could be septic with SIRS criteria. The patient has acute kidney injury with history of chronic renal failure. Chest x-ray showed possible pneumonia. The patient has history of CVA and has risk for aspiration. Because of the possible gram-positive bacteremia and sepsis, Infectious Disease consultation was requested. The patient is currently on vancomycin and Zosyn. MAR was noted. Orders were noted. Notes and records were reviewed. Per the records, it looks like the patient seems to be more alert compared to when he first came in and I reviewed the records. The patient really cannot add to this history. REVIEW OF SYSTEMS: CONSTITUTIONAL: He does have a Jordan. He has generalized fatigue. He came in with altered mental status, encephalopathy, and less responsiveness. The patient currently has no fevers or pressors. He is responsive. HEAD AND NECK: No head pain or neck pain. No neck stiffness. CARDIAC: No chest pain or pressors. GASTROINTESTINAL: No nausea, vomiting, abdominal pain, or diarrhea. GENITOURINARY: He has a Jordan. No CVA tenderness. PULMONARY: Maybe mild cough and congestion, but no significant secretions or hemoptysis. SKIN: No rash or itching. EXTREMITY: No extremity pain. NEUROLOGIC: No seizures. Generalized fatigue. No fever, chills, night sweats, or weight loss mentioned. PAST MEDICAL HISTORY: The patient's past medical history includes the following. The patient has a past medical history of dysphagia, CVA, aspiration risk, weakness, history of epilepsy, history of AED for epilepsy, history of CAD, chronic kidney disease, acute renal failure, history of diabetes, and hypertension. The patient also has hypernatremia and is anemic. ALLERGIES: Codeine. No antibiotic allergies. SOCIAL HISTORY: Negative for smoking, alcohol, and drug abuse. FAMILY HISTORY: Noncontributory. Negative for tuberculosis or cancer. MEDICATIONS: Upon reviewing the MAR, he is on the following medications. He is on insulin. He is on Zosyn and vancomycin. Vancomycin per pharmacy dosing. He is on Senokot. He is on amlodipine, apixaban, aspirin, clonidine, insulin, abx. He is on metoprolol, pantoprazole, acetaminophen, and IV fluids. Outside medications were noted and reconciliated. PHYSICAL EXAMINATION: VITAL SIGNS: Temperature is 98.2, pulse rate 72, respiratory rate 18, blood pressure 147/80, and saturation 97%. Pulse rate has been as high as 103. GENERAL: Alert, responsive, in no acute distress, and weak. HEAD AND NECK: Oral exam, no thrush. Eye exam, no icterus. Neck is supple. No JVD. Normocephalic. CARDIAC: Regular. No gallop or murmur. No friction rub. ABDOMEN: Soft. Positive bowel sounds. Nontender. LUNGS: Few bilateral rhonchi. Possible rales at the bases. SKIN: No rash. MUSCULOSKELETAL: No effusions. Legs are without cellulitis. PERIPHERAL VASCULAR: No cyanosis or gangrene. GENITOURINARY: He has a Jordan. Urine is fairly clear. LINE SITES: Without phlebitis. NEUROLOGIC: Generalized weakness. Responsive and alert. No septic arthritis. LABORATORY DATA: White count 10.1 and hemoglobin 13.8. White count has been as high as 19.1. Creatinine 2.8. Creatinine was as high as 5.7. UA had 0 to 2 white cells and leukocyte esterase negative. Sodium 154. CULTURES: Blood cultures, 1 bottle gram-positive organisms, identification is pending. Previous initial blood cultures were negative. IMAGING STUDIES: Chest x-ray showed atelectasis versus infiltrate in the medial lung bases. ASSESSMENT/PLAN: 1. The patient has altered mental status, elevated white count, SIRS criteria, tachycardia, and possible sepsis. He has gram-positive blood cultures, possible bacteremia versus contaminant. The patient also has possible pneumonia. He has high risk for aspiration and healthcare-acquired pneumonia versus community-acquired pneumonia. He has history of CVA and comes from a rehabilitation unit. At this time, the patient will be on empiric vancomycin and Zosyn for MRSA gram-negative coverage. Continue vancomycin and Zosyn for possible sepsis, elevated white count, SIRS criteria, and also possible pneumonia. Check followup chest x-ray. Check followup labs. Check final blood culture results. Of note, the patient also could have atelectasis versus pneumonia. Monitor leukocytosis and sepsis status. Seems like leukocytosis has resolved. 2. Acute kidney injury and elevated creatinine. 3. Chronic kidney disease. 4. Anemia. 5. Hypernatremia. 6. Hypertension. 7. Diabetes. 8. Blood sugar and blood pressure treatment per primary for diabetes and hypertension. 9. CAD. 10. CVA. 11. Weakness. 12. Dysphagia. 13. Epilepsy. 14. CAD and chronic kidney disease treatment per primary. 15. Continue treatment per primary consultants. 16. He is allergic to codeine. 17. Social history is negative. 18. Family history is noncontributory. 19. MAR was noted. 20. Case was discussed with RN. 21. He has a Jordan in. 22. Skin care per protocol. 23. Notes and records were noted. Orders were entered. Dung Riley M.D. DR: MILES JOB#: [id number] CC: EDA
--- NOTE | 2018-12-30 21:45 | Consultation ---
DATE OF CONSULTATION: 12/30/2018 CARDIOLOGY CONSULTATION CONSULTING PHYSICIAN: Raymon Mendieta M.D. REFERRING PHYSICIAN: Milagros Flanagan M.D. REASON FOR CONSULTATION: Hypertension, coronary artery disease, and cardiac arrhythmia. HISTORY OF PRESENT ILLNESS: The patient is a 73-year-old gentleman with history of hypertension, CVA, coronary artery disease, chronic kidney disease with baseline creatinine level of 1.5, and history of DVT on Eliquis, and diabetes, who was brought in from [facility] for altered mental status. The patient apparently was found altered with slurring speech and not making much sense. The patient was sent to the emergency room for further evaluation and management. The patient's EKG showed sinus rhythm with peaked T-waves and frequent PVCs. Cardiology consultation was obtained for further evaluation and management. REVIEW OF SYSTEMS: Negative other than what is mentioned in the history of present illness. PAST MEDICAL HISTORY: As mentioned above. MEDICATIONS: Include Norvasc, apixaban, aspirin, Lipitor, clonidine, metoprolol, Keppra. FAMILY HISTORY: Noncontributory. SOCIAL HISTORY: Lives in a fci. Does not smoke or drink alcohol. PHYSICAL EXAMINATION: VITAL SIGNS: Show blood pressure of 151/91, pulse 74, respirations 18, and temperature 98.3. HEAD AND NECK: Showed no JVD. LUNGS: Clear. CARDIOVASCULAR: Shows regular S1 and S2 with no gallop or murmur. ABDOMEN: Soft. EXTREMITIES: No pitting edema. LABORATORY AND DIAGNOSTIC DATA: His labs show white count of 10.1, hemoglobin 13.8, hematocrit of 42.6, and platelet count of 163,000. Sodium was initially 165 going down to 154, potassium is 4.4, BUN of 45, creatinine 2.8, and glucose of 371. Troponin 0.077 . ASSESSMENT AND PLAN: 1. Nbs-MM-iqkcjehlr myocardial infarction. This is likely type 2 due to the patient's renal failure and dehydration. His BUN was 72 and creatinine was 3.9 and his sodium was 165 on admission. The patient currently does not have any chest pain. Continue medical therapy with aspirin and beta-reva as well as statin. The patient is not a candidate for coronary intervention in view of renal failure. Treat the patient medically at this time. 2. Hypertension. Continue amlodipine 5 mg daily and metoprolol 25 mg b.i.d. as well as clonidine 0.1 mg b.i.d. 3. Uncontrolled diabetes, on insulin. 4. Seizures. 5. Altered mental status. Further evaluation by Neurology. Thank you very much for allowing me to participate in the care of this patient. Please do not hesitate to contact me for any questions regarding my evaluation. Raymon Mendieta M.D. DR: STU JOB#: [id number] CC:
[2018-12-31] VITALS: BP 143/83
[2018-12-31 04:00] VITALS: BP 131/86
[2018-12-31] MEDS: NovoLOG Insulin Flexpen SUBQ SCH ×7 (05:35→21:48)
[2018-12-31] MEDS: Zoysn 3.37gm in NS 100ML IVPB SCH ×3 (05:37→21:36)
[2018-12-31 07:40] LABS: BASOPHILS % (AUTO) 0.8 % (0.0-2.0); EOSINOPHILS % (AUTO) 3.3 % (0.0-3.0); HEMATOCRIT 39.8 % (42.0-52.0); LYMPHOCYTES % (AUTO) 24.1 % (20.0-45.0); MEAN CORPUSCULAR VOLUME 93 FL (80-99); MONOCYTES % (AUTO) 8.9 % (1.0-10.0); NEUTROPHILS % (AUTO) 62.9 % (45.0-75.0); PLATELET COUNT 129 K/UL (150-450); RED BLOOD COUNT 4.29 M/UL (4.70-6.10); RED CELL DISTRIBUTION WIDTH 11.9 % (11.6-14.8)
--- NOTE | 2018-12-31 07:46 | NUR ---
HAND-OFF: Report given to DALLAS Mc. Pt stable.
[2018-12-31 08:00] VITALS: BP 143/88
[2018-12-31 08:14] LABS: ALANINE AMINOTRANSFERASE 32 U/L (12-78); ALBUMIN 2.6 G/DL (3.4-5.0); ALBUMIN/GLOBULIN RATIO 0.6 (1.0-2.7); ALKALINE PHOSPHATASE 68 U/L (46-116); ANION GAP 9 mmol/L (5-15); ASPARTATE AMINO TRANSFERASE 41 U/L (15-37); BILIRUBIN,TOTAL 0.9 MG/DL (0.2-1.0); BLOOD UREA NITROGEN 30 mg/dL (7-18); CALCIUM 8.7 MG/DL (8.5-10.1); CARBON DIOXIDE 23 MMOL/L (21-32); CHLORIDE 116 MMOL/L (98-107); CREATININE 2.1 MG/DL (0.55-1.30); POTASSIUM 4.3 MMOL/L (3.5-5.1); SODIUM 148 MMOL/L (136-145)
[2018-12-31] MEDS: Metoprolol 25mg tab ORAL SCH ×2 (08:26→21:37)
[2018-12-31] MEDS: Aspirin Baby 81mg ORAL SCH (08:27)
[2018-12-31] MEDS: Docusate 100mg cap ORAL SCH ×3 (08:27→17:07)
[2018-12-31] MEDS: levETIRAcetam 500mg/NS100ml 100 ML IVPB SCH ×2 (08:28→21:36)
[2018-12-31] MEDS: Eliquis 2.5mg tablet ORAL SCH ×2 (08:28→17:07)
[2018-12-31] MEDS: Pantoprazole Inj IVP SCH ×2 (08:29→21:36)
[2018-12-31] MEDS: Levemir Flexpen SUBQ SCH ×2 (08:31→21:49)
[2018-12-31] MEDS ORDERED: Vancomycin 1.5gm/NS Premix IVPB SCH (10:00)
--- NOTE | 2018-12-31 10:39 | Diagnostic Imaging Report ---
Indication: Cough Technique: One view of the chest Comparison: 12/28/2018 Findings: Lungs and pleural spaces are clear. Heart size is normal. No significant interim change Impression: No acute process
--- NOTE | 2018-12-31 11:11 | Cardiac Electrophysiology PN ---
Assessment/Plan Assessment/Plan 1. Dgb-RW-ccpeijchy myocardial infarction. This is likely type 2 due to the patient's renal failure and dehydration. His BUN was 72 and creatinine was 3.9 and his sodium was 165 on admission. The patient currently does not have any chest pain. Continue medical therapy with aspirin and beta-reva as well as statin. The patient is not a candidate for coronary intervention in view of renal failure. Treat the patient medically at this time.Echo pending today 2. Hypertension. Continue amlodipine 5 mg daily and metoprolol 25 mg b.i.d. as well as clonidine 0.1 mg b.i.d. 3. Hx of atrial fib on Lopressor 25 bid and Eliquis 4. Positive blood cultures on iv Abx 5. Uncontrolled diabetes, on insulin. 6. Seizures. 7. Altered mental status. Further evaluation by Neurology. 8. DVT on Eliquis EUNICE RN Subjective Subjective Alert in NAD. No CP or SOB. In SR with PACs. Objective Last 24 Hour Vital Signs Date Time Temp Pulse Resp B/P (MAP) Pulse Ox O2 Delivery O2 Flow Rate FiO2 12/31/18 09:00 Room Air 12/31/18 08:27 79 143/88 12/31/18 08:26 79 143/88 12/31/18 08:26 143/88 12/31/18 08:00 98.7 79 20 143/88 (106) 92 12/31/18 08:00 74 12/31/18 04:00 97.8 74 16 131/86 (101) 98 12/31/18 04:00 71 12/31/18 00:00 73 12/31/18 00:00 98.0 72 20 143/83 (103) 100 12/30/18 21:08 74 18 95 Room Air 21 12/30/18 21:02 76 124/88 12/30/18 21:00 Room Air 12/30/18 20:00 98.1 76 16 124/88 (100) 96 12/30/18 20:00 78 12/30/18 17:35 144/78 12/30/18 16:00 98.2 78 18 147/80 (102) 97 12/30/18 16:00 80 12/30/18 12:00 98.3 74 20 151/91 (111) 95 12/30/18 12:00 79 Intake and Output 12/30/18 12/31/18 19:00 07:00 Intake Total 1350 ml 3270 ml Output Total 1800 ml 725 ml Balance -450 ml 2545 ml Intake Oral 840 ml 240 ml IV Total 510 ml 3000 ml Tube Feeding 30 ml Output Urine Total 1800 ml 725 ml # Bowel Movements 1 Laboratory Tests Test 12/31/18 06:50 White Blood Count 8.0 K/UL (4.8-10.8) Red Blood Count 4.29 M/UL (4.70-6.10) L Hemoglobin 13.0 G/DL (14.2-18.0) L Hematocrit 39.8 % (42.0-52.0) L Mean Corpuscular Volume 93 FL (80-99) Mean Corpuscular Hemoglobin 30.3 PG (27.0-31.0) Mean Corpuscular Hemoglobin Concent 32.6 G/DL (32.0-36.0) Red Cell Distribution Width 11.9 % (11.6-14.8) Platelet Count 129 K/UL (150-450) L Mean Platelet Volume 8.6 FL (6.5-10.1) Neutrophils (%) (Auto) 62.9 % (45.0-75.0) Lymphocytes (%) (Auto) 24.1 % (20.0-45.0) Monocytes (%) (Auto) 8.9 % (1.0-10.0) Eosinophils (%) (Auto) 3.3 % (0.0-3.0) H Basophils (%) (Auto) 0.8 % (0.0-2.0) Sodium Level 148 MMOL/L (136-145) H Potassium Level 4.3 MMOL/L (3.5-5.1) Chloride Level 116 MMOL/L (98-107) H Carbon Dioxide Level 23 MMOL/L (21-32) Anion Gap 9 mmol/L (5-15) Blood Urea Nitrogen 30 mg/dL (7-18) H Creatinine 2.1 MG/DL (0.55-1.30) H Estimat Glomerular Filtration Rate mL/min (>60) Glucose Level 267 MG/DL (74-106) #H Calcium Level 8.7 MG/DL (8.5-10.1) Magnesium Level 2.1 MG/DL (1.8-2.4) Total Bilirubin 0.9 MG/DL (0.2-1.0) Aspartate Amino Transf (AST/SGOT) 41 U/L (15-37) H Alanine Aminotransferase (ALT/SGPT) 32 U/L (12-78) Alkaline Phosphatase 68 U/L (46-116) Total Protein 6.9 G/DL (6.4-8.2) Albumin 2.6 G/DL (3.4-5.0) L Globulin 4.3 g/dL Albumin/Globulin Ratio 0.6 (1.0-2.7) L Random Vancomycin Level 7.6 ug/mL Objective HEAD AND NECK: No JVD. LUNGS: Clear. CARDIOVASCULAR: Regular S1 and S2 with no gallop or murmur. ABDOMEN: Soft. EXTREMITIES: No pitting edema. Raymon Mendieta MD Dec 31, 2018 11:11
--- NOTE | 2018-12-31 11:19 | NUR ---
RADIOLOGY DEPT., CHEST X-RAY DONE.-P.DYE
--- NOTE | 2018-12-31 11:31 | NUR ---
NURSE NOTES: Left message with [facility] regarding blood glucose of 421. Will give insulin based on protocol. Awaiting response from .
--- NOTE | 2018-12-31 11:39 | NUR ---
NURSE NOTES: Dr. Leiva aware of glucose. No new telephone orders given. He said to give the 24 units of Novolog as prescribed and he will make changes through [facility].
[2018-12-31] MEDS ORDERED: Levemir Flexpen SUBQ SCH (11:45)
[2018-12-31 12:00] VITALS: BP 128/80
--- NOTE | 2018-12-31 12:50 | Pulmonology Progress Note ---
Assessment/Plan Problems: (1) DKA (diabetic ketoacidoses) (2) Acute kidney injury superimposed on CKD (3) Metabolic encephalopathy (4) Seizure (5) Hyperglycemia (6) Acidemia (7) History of chronic hypertension (8) Diabetes mellitus (9) History of hyperlipidemia (10) History of neuropathy (11) History of DVT (deep vein thrombosis) (12) CAD (coronary artery disease) (13) Elevated troponin (14) Sepsis Assessment/Plan Optimize pulmonary hygiene/mobilize as tolerated PRN O2 PRN HHN's Abx per ID Monitor volumes and renal function, IVF hydration, replete free water Diet per [employer] with STRICT aspiration precautions DVT Px: Eliquis Monitor MS FC, continue to discuss GOC Subjective Allergies: Coded Allergies: CODEINE (Unverified Allergy, Unknown, 10/16/18) Subjective AFVSS on RA CXR NAD No cough, no SOB, no CP, no FC Objective Last 24 Hour Vital Signs Date Time Temp Pulse Resp B/P (MAP) Pulse Ox O2 Delivery O2 Flow Rate FiO2 12/31/18 09:00 Room Air 12/31/18 08:27 79 143/88 12/31/18 08:26 79 143/88 12/31/18 08:26 143/88 12/31/18 08:00 98.7 79 20 143/88 (106) 92 12/31/18 08:00 74 12/31/18 04:00 97.8 74 16 131/86 (101) 98 12/31/18 04:00 71 12/31/18 00:00 73 12/31/18 00:00 98.0 72 20 143/83 (103) 100 12/30/18 21:08 74 18 95 Room Air 21 12/30/18 21:02 76 124/88 12/30/18 21:00 Room Air 12/30/18 20:00 98.1 76 16 124/88 (100) 96 12/30/18 20:00 78 12/30/18 17:35 144/78 12/30/18 16:00 98.2 78 18 147/80 (102) 97 12/30/18 16:00 80 Intake and Output 12/30/18 12/31/18 19:00 07:00 Intake Total 1350 ml 3270 ml Output Total 1800 ml 725 ml Balance -450 ml 2545 ml Intake Oral 840 ml 240 ml IV Total 510 ml 3000 ml Tube Feeding 30 ml Output Urine Total 1800 ml 725 ml # Bowel Movements 1 General Appearance: WD/WN, no acute distress HEENT: normocephalic, atraumatic, anicteric, mucous membranes moist Respiratory/Chest: chest wall non-tender, lungs clear, normal breath sounds, no respiratory distress, no accessory muscle use Cardiovascular: normal peripheral pulses, normal rate, regular rhythm Abdomen: normal bowel sounds, soft, non tender, no organomegaly, non distended , no mass Extremities: no cyanosis, no clubbing, no edema Laboratory Tests 12/31/18 06:50: White Blood Count 8.0, Red Blood Count 4.29L, Hemoglobin 13.0L, Hematocrit 39.8L , Mean Corpuscular Volume 93, Mean Corpuscular Hemoglobin 30.3, Mean Corpuscular Hemoglobin Concent 32.6, Red Cell Distribution Width 11.9, Platelet Count 129L, Mean Platelet Volume 8.6, Neutrophils (%) (Auto) 62.9, Lymphocytes ( %) (Auto) 24.1, Monocytes (%) (Auto) 8.9, Eosinophils (%) (Auto) 3.3H, Basophils (%) (Auto) 0.8, Sodium Level 148H, Potassium Level 4.3, Chloride Level 116H, Carbon Dioxide Level 23, Anion Gap 9, Blood Urea Nitrogen 30H, Creatinine 2.1H, Estimat Glomerular Filtration Rate , Glucose Level 267#H, Calcium Level 8.7, Magnesium Level 2.1, Total Bilirubin 0.9, Aspartate Amino Transf (AST/SGOT) 41H, Alanine Aminotransferase (ALT/SGPT) 32, Alkaline Phosphatase 68, Total Protein 6.9, Albumin 2.6L, Globulin 4.3, Albumin/Globulin Ratio 0.6L, Random Vancomycin Level 7.6 Current Medications Medications (Trade) Dose Ordered Sig/Sheeba Route PRN Reason Start Time Stop Time Status Last Admin Dose Admin Acetaminophen (Tylenol) 650 mg Q6HR PRN ORAL pain or fever T>101 12/29/18 18:30 01/28/19 18:29 Albuterol/ Ipratropium (Albuterol/ Ipratropium) 3 ml Q4H PRN HHN Shortness of Breath 12/30/18 17:00 01/04/19 16:59 Amlodipine Besylate (Norvasc) 5 mg DAILY ORAL 12/30/18 09:00 01/28/19 10:44 12/31/18 08:27 Apixaban (Eliquis) 2.5 mg BID ORAL 12/30/18 09:00 01/27/19 10:44 12/31/18 08:28 Aspirin (ASA) 81 mg DAILY ORAL 12/30/18 09:00 01/28/19 08:59 12/31/18 08:27 Clonidine HCl (Catapres Tab) 0.1 mg BID ORAL 12/30/18 09:00 01/28/19 10:44 12/31/18 08:26 Dextrose 1,000 ml @ 75 mls/hr [id number] IV 12/30/18 18:30 01/28/19 18:29 12/31/18 08:29 Dextrose (Dextrose 50%) 25 ml Q30M PRN IV Hypoglycemia 12/29/18 18:15 01/27/19 09:44 Dextrose (Dextrose 50%) 50 ml Q30M PRN IV Hypoglycemia 12/29/18 18:15 01/27/19 09:44 Docusate Sodium (Colace) 100 mg TID ORAL 12/31/18 09:00 01/29/19 17:59 12/31/18 08:27 Insulin Aspart (NovoLOG) BEFORE MEALS AND HS SUBQ 12/29/18 21:00 01/28/19 11:29 12/31/18 11:41 Insulin Aspart (NovoLOG) 12 units NOVOTIAC SUBQ 12/31/18 11:50 01/28/19 11:49 12/31/18 11:42 Insulin Detemir (Levemir) 10 units BEDTIME SUBQ 12/30/18 21:00 01/29/19 20:59 12/30/18 21:03 Insulin Detemir (Levemir) 10 units ONCE SUBQ 12/31/18 11:45 12/31/18 13:00 12/31/18 12:27 Insulin Detemir (Levemir) 35 units DAILY SUBQ 01/01/19 09:00 01/28/19 10:29 Levetiracetam 100 ml @ 400 mls/hr Q12HR IVPB 12/29/18 21:00 01/27/19 10:29 12/31/18 08:28 Metoprolol Tartrate (Lopressor) 25 mg Q12HR ORAL 12/29/18 21:00 01/27/19 20:59 12/31/18 08:26 Pantoprazole (Protonix) 40 mg EVERY 12 HOURS IVP 12/29/18 21:00 01/27/19 20:59 12/31/18 08:29 Piperacillin Sod/ Tazobactam Sod 3.375 gm/Sodium Chloride 110 ml @ 27.5 mls/hr EVERY 8 HOURS IVPB 12/30/18 14:00 01/04/19 13:59 12/31/18 05:37 Sennosides (Senokot) 8.6 mg DAILY PRN ORAL Constipation 12/30/18 10:15 01/29/19 10:14 12/30/18 12:51 Vancomycin HCl (Vanco rx to dose) 1 ea DAILY PRN MISC Per rx protocol 12/30/18 17:30 01/29/19 17:29 Vancomycin/Sodium Chloride 275 ml @ 137.5 mls/ hr Q24H IVPB 12/31/18 10:00 12/31/18 13:00 12/31/18 10:54 Marcelino Strickland MD Dec 31, 2018 12:50
[2018-12-31 16:00] VITALS: BP 125/82
--- NOTE | 2018-12-31 16:04 | Cardiology Report ---
APPROVED REPORT EXAM: Two-dimensional and M-mode echocardiogram with Doppler and color Doppler. INDICATION Chest Pain M-Mode DIMENSIONS IVSd1.3 (0.7-1.1cm)Left Atrium (MM)3.6 (1.6-4.0cm) LVDd4.8 (3.5-5.6cm)Aortic Root3.2 (2.0-3.7cm) PWd1.2 (0.7-1.1cm)Aortic Cusp Exc.1.6 (1.5-2.0cm) LVDs3.5 (2.5-4.0cm) PWs1.4 cm Normal left ventricular chamber size, global hypokinesis Left ventricular ejection fraction estimated to be 40% by visual estimation Mild ventricular hypertrophy. All other cardiac chamber sizes are within normal limits. Focal aortic valve sclerosis with adequate cusp excursion. Thickened mitral valve leaflets with normal excursion. Mitral annulus and aortic root calcification. Pulmonic valve not well visualized. Normal tricuspid valve structure. IVC at normal size without physiologic collapse. A color flow and spectral Doppler study was performed and revealed: No aortic regurgitation Trace mtiral regurgiation. Mitral diastolic velocities are non-diagnostic due to arrhythmia. Trace tricuspid regurgitation. Tricuspid systolic velocities suggests peak right ventricular systolic pressure of 16mmHg.
--- NOTE | 2018-12-31 19:28 | NUR ---
HAND-OFF: Report given to DALLAS Terry. Pt is in stable condition; plan of care endorsed.
--- NOTE | 2018-12-31 19:39 | NUR ---
NURSE NOTES: Received pt from [facility] Mc. Pt awake, alert, and talkative. Speech still slurred. Bed in lowest position. Call light within reach. Will continue to monitor.
[2018-12-31 20:00] VITALS: BP 128/81
--- NOTE | 2018-12-31 20:55 | General Progress Note ---
Assessment/Plan Problem List: (1) Renal failure ICD Codes: N19 - Unspecified kidney failure SNOMED: 32824072 Qualifiers: Qualified Codes: N17.9 - Acute kidney failure, unspecified (2) Sepsis ICD Codes: A41.9 - Sepsis, unspecified organism SNOMED: 70702194, 514286755, 154928943 Qualifiers: Qualified Codes: A41.9 - Sepsis, unspecified organism (3) Elevated troponin ICD Codes: R74.8 - Abnormal levels of other serum enzymes SNOMED: 877711659, 266816453, 128466266 (4) CAD (coronary artery disease) ICD Codes: I25.10 - Atherosclerotic heart disease of [place] coronary artery without angina pectoris SNOMED: 83969515 (5) CKD (chronic kidney disease) stage 3, GFR 30-59 ml/min ICD Codes: N18.3 - Chronic kidney disease, stage 3 (moderate) SNOMED: 373959981 (6) History of DVT (deep vein thrombosis) ICD Codes: Z86.718 - Personal history of other venous thrombosis and embolism SNOMED: 687090018 (7) History of hyperlipidemia ICD Codes: Z86.39 - Personal history of other endocrine, nutritional and metabolic disease SNOMED: 919313558 (8) History of neuropathy ICD Codes: Z86.69 - Personal history of other diseases of the nervous system and sense organs SNOMED: 082375156, 679011226 (9) History of chronic hypertension ICD Codes: Z86.79 - Personal history of other diseases of the circulatory system SNOMED: 770724701 (10) Diabetes mellitus ICD Codes: E11.9 - Type 2 diabetes mellitus without complications SNOMED: 82978984 Qualifiers: (11) Hyperglycemia ICD Codes: R73.9 - Hyperglycemia, unspecified SNOMED: 86963826 (12) DKA (diabetic ketoacidoses) ICD Codes: E11.10 - Type 2 diabetes mellitus with ketoacidosis without coma SNOMED: 91247680, 680841457 Qualifiers: Qualified Codes: E13.11 - Other specified diabetes mellitus with ketoacidosis with coma (13) Hyperkalemia ICD Codes: E87.5 - Hyperkalemia SNOMED: 11782137 (14) Acute kidney injury superimposed on CKD ICD Codes: N17.9 - Acute kidney failure, unspecified; N18.9 - Chronic kidney disease, unspecified SNOMED: 93533614, 287890184 Status: progressing - improving Assessment/Plan: Status: progressing - improving Assessment/Plan: Silvio Abraham is a 73 yo man with PMH of DMII (diet controlled not on meds) , epilepsy on AED, CKD stage III (baseline creatinine ~1.5), CAD, CVA with residual weakness and dysphagia, hx DVTs, and HTN who presented from [facility] with AMS, found with leukocytosis 15.5, hyperkalemia 7.1, BUN/Cr 96/5.7, ABG 7.16/37/86.5/13.2, BNP 1640, glucose 1501, troponin 0.103, and positive ketones in urine, admitted to medical ICU for DKA, possible PNA, JERMAN on CKD with hyperkalemia, and likely demand STEMI. Patient now with resolved DKA. #Metabolic encephalopathy - improving, hx of epilepsy > CT head without acute pathology, chronic small vessel changes, cerebral parenchymal volume loss 2/2 age. EEG: Diffuse encephalopathy. - Encephalopathy in setting of DKA, JERMAN, and possible infection. Mental status much improved. Patient back to baseline mental status per family - Treatment of DKA and infection as per below - Continue home keppra 500mg BID - Hold home gabapentin 400mg PO BID given AMS and JERMAN - No longer requiring soft wrist restraints, cooperative now #DKA - resolved, hx DMII (not on medications) with hyperglycemia - IMPROVING > Glucose 1501 on admission, AG 20, +ketones in urine ABG 7.169/37/86.5/13.2 on admission - Increase levemir to 35 units QAm and 10 units QHS - Increase Lispro to 12 units TIDAC - Monitor FS ACHS - hgb A1C 12 this admission. Will need insulin on discharge. #JERMAN on CKD (baseline creatinine ~1.5) - improving, hyperkalemia in setting of JERMAN and acidemia - resolved, hypokalemia - resolved, metabolic acidosis - resolved, severe hypernatremia > BUN/Cr 96/5.7 on admission > Likely prerenal 2/2 severe dehydration > EKG with peak T waves on admission > s/p insulin, calcium gluconate, sodium bicarb x1 in ED > Hyperkalemia resolved with insulin with development of subsequent hypokalemia due to shift, now resolved with repletion. > Metabolic acidosis resolved with resolution of DKA - Aggressive IVF as per above - Severe hypernatremia, Na 165, 2/2 severe dehydration now showing with resolution of hyperglycemia. - Free water deficit of 8.8L. Start D5W@ 125cc/hr 12/20/18. Will need to watch FS closely. Encourage free water intake. - Monitor BMP q8-12hrs. Avoid overcorrection of sodium. - Strict I/Os monitoring #Sepsis 2/2 possible PNA - IMproving - Possible PNA as trigger for DKA, question aspiration given patient's hx of seizures and dysphagia and RN report of coughing with water on day of admission - CXR with atelectasis vs infiltrate in medial lung basis - Afebrile with leukocytosis 15.5 on admission. WBC up to 19.1 - Zosyn 2.25mg IV q8hr renally (12/28- ) Plan for 5-7 days course pending clinical improvement - Blood cultures: One bottle positive, aerobic Gram positive cocci in clusters. ID consult: Dr. De Anda. - UA unremarkable for acute infection - Currently satting well on RA - Aspiration precautions #slurred speech, new. Since admission. Has not resolved with treatment of above acute illnesses. Confirmed with Sister that this is new. Concern for stroke - Neuro consult # Demand NSTEMI, hx HTN, CAD, DVTs #Systolic heart failure, EF 40%. Compensated - Troponin 0.103 on admission, without ST EKG changes, likely demand ischemia in setting of JERMAN on CKD and DKA/sepsis - Repeat troponin 0.772 this morning, patient remains asymptomatic, demand ischemia, trend to downtrend - Continue home aspirin 81mg PO daily - Continue home metoprolol 25mg PO BID - Hold home losartan 50mg PO daily given JERMAN - Resume home amlodipine 5mg PO daily and clonidine 0.1mg PO BID as BP rising today - Continue home eliquis, change to renal dose 2.5mg PO BID -Cardiology consult: Dr. Mendieta. #hx dysphagia - Reportedly on mechanical soft thin liquids at [facility] - Bedside swallow evaluation then start puree nectar thick diet for now, formal TELEGRAPH DISPATCHER evaluation - Aspiration precautions, supervision with PO intake - IVF as per above FEN: D5W @125cc/hr Puree diet nectar thick liquids D/C maycol, use bedside urinal for strict I/Os Full Code Telemetry Discussed with RN, patient and family members (son Bennett and sister Debbie). I spent 37 minutes on this patient's case with >50% on counseling and coordination of care. Subjective Date patient seen: Dec 31, 2018 Constitutional: Denies: chills, diaphoresis, fever, malaise, weakness, other HEENT: Denies: eye pain, blurred vision, tearing, double vision, ear pain, ear discharge, nose pain, nose congestion, throat pain, throat swelling, mouth pain , mouth swelling, other Cardiovascular: Denies: chest pain, edema, irregular heart rate, lightheadedness, palpitations, syncope, other Respiratory: Denies: cough, orthopnea, shortness of breath, SOB with excertion , SOB at rest, sputum, stridor, wheezing, other Gastrointestinal/Abdominal: Denies: abdomen distended, abdominal pain, black stools, tarry stools, blood in stool, constipated, diarrhea, difficulty swallowing, nausea, poor appetite, poor fluid intake, rectal bleeding, vomiting , other Genitourinary: Denies: burning, discharge, frequency, flank pain, hematuria, incontinence, pain, urgency, other Neurologic/Psychiatric: Reports: other - slurred speech; Denies: anxiety, depressed, emotional problems, headache, numbness, paresthesia, pre-existing deficit, seizure, tingling, tremors, weakness Endocrine: Denies: excessive sweating, flushing, intolerance to cold, intolerance to heat, increased hunger, increased thirst, increased urine, unexplained weight gain, unexplained weight loss, other Hematologic/Lymphatic: Denies: anemia, easy bleeding, easy bruising, other Allergies: Coded Allergies: CODEINE (Unverified Allergy, Unknown, 10/16/18) Subjective No acute events overnight. PNA: improving. Denies SOB, Cough. Afebrile. Vitals stable. DM2: Blood sugars still uncontrolled. 277-270. 36 units SSI used in 24 hours. No hypoglycemic events NSTEMI type 2: No chest pain. Per cardiology likely demand ischemia Slurred/delayed speech: Since hospitalization. New. No other new focal signs. No dysphagia, numbness/tingling. Constant. Per patient this is improving Objective Last 24 Hour Vital Signs Date Time Temp Pulse Resp B/P (MAP) Pulse Ox O2 Delivery O2 Flow Rate FiO2 10/1/19 20:29 69 18 96 Room Air 21 12/31/18 17:06 128/78 12/31/18 16:00 70 12/31/18 16:00 97.4 61 20 125/82 (96) 94 12/31/18 13:26 67 18 96 Room Air 21 12/31/18 12:00 97.9 68 19 128/80 (96) 97 12/31/18 12:00 70 12/31/18 09:00 Room Air 12/31/18 08:27 79 143/88 12/31/18 08:26 79 143/88 12/31/18 08:26 143/88 12/31/18 08:00 98.7 79 20 143/88 (106) 92 12/31/18 08:00 74 12/31/18 04:00 97.8 74 16 131/86 (101) 98 12/31/18 04:00 71 12/31/18 00:00 73 12/31/18 00:00 98.0 72 20 143/83 (103) 100 12/30/18 21:08 74 18 95 Room Air 21 12/30/18 21:02 76 124/88 12/30/18 21:00 Room Air Intake and Output 12/30/18 12/31/18 19:00 07:00 Intake Total 1350 ml 3270 ml Output Total 1800 ml 725 ml Balance -450 ml 2545 ml Intake Oral 840 ml 240 ml IV Total 510 ml 3000 ml Tube Feeding 30 ml Output Urine Total 1800 ml 725 ml # Bowel Movements 1 Laboratory Tests 12/31/18 06:50: White Blood Count 8.0, Red Blood Count 4.29L, Hemoglobin 13.0L, Hematocrit 39.8L , Mean Corpuscular Volume 93, Mean Corpuscular Hemoglobin 30.3, Mean Corpuscular Hemoglobin Concent 32.6, Red Cell Distribution Width 11.9, Platelet Count 129L, Mean Platelet Volume 8.6, Neutrophils (%) (Auto) 62.9, Lymphocytes ( %) (Auto) 24.1, Monocytes (%) (Auto) 8.9, Eosinophils (%) (Auto) 3.3H, Basophils (%) (Auto) 0.8, Sodium Level 148H, Potassium Level 4.3, Chloride Level 116H, Carbon Dioxide Level 23, Anion Gap 9, Blood Urea Nitrogen 30H, Creatinine 2.1H, Estimat Glomerular Filtration Rate , Glucose Level 267#H, Calcium Level 8.7, Magnesium Level 2.1, Total Bilirubin 0.9, Aspartate Amino Transf (AST/SGOT) 41H, Alanine Aminotransferase (ALT/SGPT) 32, Alkaline Phosphatase 68, Total Protein 6.9, Albumin 2.6L, Globulin 4.3, Albumin/Globulin Ratio 0.6L, Random Vancomycin Level 7.6 Height (Feet): 5 Height (Inches): 8.00 Weight (Pounds): 215 General Appearance: WD/WN, no apparent distress, alert EENT: PERRL/EOMI, normal ENT inspection Neck: non-tender, normal alignment, supple Cardiovascular: normal peripheral pulses, normal rate, regular rhythm Respiratory/Chest: chest wall non-tender, lungs clear, normal breath sounds Abdomen: normal bowel sounds, non tender Extremities: other - No LE edema bilaterally Neurologic: community life director II-XII grossly normal, no motor/sensory deficits, alert, oriented x 3, responsive, other - 5/5 in motor strength UE and LE bilaterally. + notable slurred/delayed speech Cordell Leiva D.O. Dec 31, 2018 20:55
[2019-01-01] VITALS: BP 134/80
[2019-01-01 04:00] VITALS: BP 116/62
[2019-01-01] MEDS: NovoLOG Insulin Flexpen SUBQ SCH ×7 (06:30→21:30)
[2019-01-01 07:06] LABS: BASOPHILS % (AUTO) 0.6 % (0.0-2.0); EOSINOPHILS % (AUTO) 3.4 % (0.0-3.0); HEMATOCRIT 35.5 % (42.0-52.0); HEMOGLOBIN 11.9 G/DL (14.2-18.0); LYMPHOCYTES % (AUTO) 25.4 % (20.0-45.0); MEAN CORPUSCULAR VOLUME 92 FL (80-99); MONOCYTES % (AUTO) 11.3 % (1.0-10.0); NEUTROPHILS % (AUTO) 59.4 % (45.0-75.0); PLATELET COUNT 131 K/UL (150-450); RED BLOOD COUNT 3.87 M/UL (4.70-6.10); RED CELL DISTRIBUTION WIDTH 11.5 % (11.6-14.8); WHITE BLOOD COUNT 7.1 K/UL (4.8-10.8)
[2019-01-01 07:23] LABS: ANION GAP 8 mmol/L (5-15); BLOOD UREA NITROGEN 27 mg/dL (7-18); CALCIUM 8.2 MG/DL (8.5-10.1); CARBON DIOXIDE 23 MMOL/L (21-32); CHLORIDE 113 MMOL/L (98-107); PHOSPHORUS 2.8 MG/DL (2.5-4.9); POTASSIUM 4.3 MMOL/L (3.5-5.1); SODIUM 144 MMOL/L (136-145)
[2019-01-01] MEDS: Zoysn 3.37gm in NS 100ML IVPB SCH ×2 (07:23→13:47)
--- NOTE | 2019-01-01 07:54 | NUR ---
HAND-OFF: Report given to DALLAS Kirby. Pt stable.
[2019-01-01 08:00] VITALS: BP 144/74
--- NOTE | 2019-01-01 08:06 | NUR ---
NURSE NOTES: Patient stable AOx4 eating her breakfast in bed. RR even and unlabored on RA. No complaints of pain. Side rails up x2, bed low and locked. Will continue to monitor.
[2019-01-01] MEDS: levETIRAcetam 500mg/NS100ml 100 ML IVPB SCH ×2 (08:45→20:53)
[2019-01-01] MEDS: Pantoprazole Inj IVP SCH ×2 (08:45→20:49)
[2019-01-01] MEDS: Eliquis 2.5mg tablet ORAL SCH ×2 (08:46→16:55)
[2019-01-01] MEDS: Metoprolol 25mg tab ORAL SCH ×2 (08:51→20:48)
[2019-01-01] MEDS: Aspirin Baby 81mg ORAL SCH (08:52)
[2019-01-01] MEDS: Docusate 100mg cap ORAL SCH ×3 (08:52→16:55)
--- NOTE | 2019-01-01 09:47 | Pulmonology Progress Note ---
Assessment/Plan Problems: (1) DKA (diabetic ketoacidoses) (2) Acute kidney injury superimposed on CKD (3) Metabolic encephalopathy (4) Seizure (5) Hyperglycemia (6) Acidemia (7) History of chronic hypertension (8) Diabetes mellitus (9) History of hyperlipidemia (10) History of neuropathy (11) History of DVT (deep vein thrombosis) (12) CAD (coronary artery disease) (13) Elevated troponin (14) Sepsis Assessment/Plan Optimize pulmonary hygiene/mobilize as tolerated PRN O2 PRN HHN's Abx per ID Monitor volumes and renal function, mIVF Diet per DRIVER LICENSE REVIEWING OFFICER with STRICT aspiration precautions DVT Px: Eliquis Monitor MS FC, continue to discuss GOC Subjective Allergies: Coded Allergies: CODEINE (Unverified Allergy, Unknown, 10/16/18) Subjective AFVSS on RA No cough, no SOB, no CP, no FC Objective Last 24 Hour Vital Signs Date Time Temp Pulse Resp B/P (MAP) Pulse Ox O2 Delivery O2 Flow Rate FiO2 01/01/19 08:51 63 144/74 01/01/19 08:51 144/74 01/01/19 08:51 63 144/74 01/01/19 08:13 Room Air 01/01/19 04:00 69 01/01/19 04:00 98.0 67 18 116/62 (80) 94 01/01/19 00:00 66 01/01/19 00:00 98.0 63 18 134/80 (98) 96 12/31/18 21:37 69 128/81 12/31/18 21:00 Room Air 12/31/18 20:29 69 18 96 Room Air 21 12/31/18 20:00 98.3 69 18 128/81 (97) 96 12/31/18 20:00 68 12/31/18 17:06 128/78 12/31/18 16:00 70 12/31/18 16:00 97.4 61 20 125/82 (96) 94 12/31/18 13:26 67 18 96 Room Air 21 12/31/18 12:00 97.9 68 19 128/80 (96) 97 12/31/18 12:00 70 Intake and Output 12/31/18 01/01/19 18:59 06:59 Intake Total 555 ml 64387 ml Output Total 2400 ml Balance 555 ml 8250 ml Intake Oral 120 ml 360 ml IV Total 435 ml 9000 ml Tube Feeding 90 ml Other 1200 ml Output Urine Total 2400 ml # Bowel Movements 3 General Appearance: WD/WN, no acute distress, other - dysarthria HEENT: normocephalic, atraumatic, anicteric, mucous membranes moist Respiratory/Chest: chest wall non-tender, lungs clear, normal breath sounds, no respiratory distress, no accessory muscle use Cardiovascular: normal peripheral pulses, normal rate, regular rhythm Abdomen: normal bowel sounds, soft, non tender, no organomegaly, non distended , no mass Extremities: no cyanosis, no clubbing, no edema Laboratory Tests 01/01/19 06:44: White Blood Count 7.1, Red Blood Count 3.87L, Hemoglobin 11.9L, Hematocrit 35.5L , Mean Corpuscular Volume 92, Mean Corpuscular Hemoglobin 30.7, Mean Corpuscular Hemoglobin Concent 33.4, Red Cell Distribution Width 11.5L, Platelet Count 131L, Mean Platelet Volume 9.4, Neutrophils (%) (Auto) 59.4, Lymphocytes (%) (Auto) 25.4, Monocytes (%) (Auto) 11.3H, Eosinophils (%) (Auto) 3.4H, Basophils (%) (Auto) 0.6, Sodium Level 144, Potassium Level 4.3, Chloride Level 113H, Carbon Dioxide Level 23, Anion Gap 8, Blood Urea Nitrogen 27H, Creatinine 2.0H, Estimat Glomerular Filtration Rate , Glucose Level 182H, Calcium Level 8.2L, Phosphorus Level 2.8, Magnesium Level 1.9, Random Vancomycin Level 13.1 Current Medications Medications (Trade) Dose Ordered Sig/Sheeba Route PRN Reason Start Time Stop Time Status Last Admin Dose Admin Acetaminophen (Tylenol) 650 mg Q6HR PRN ORAL pain or fever T>101 12/29/18 18:30 01/28/19 18:29 Albuterol/ Ipratropium (Albuterol/ Ipratropium) 3 ml Q4H PRN HHN Shortness of Breath 12/30/18 17:00 01/04/19 16:59 Amlodipine Besylate (Norvasc) 5 mg DAILY ORAL 12/30/18 09:00 01/28/19 10:44 01/01/19 08:51 Apixaban (Eliquis) 2.5 mg BID ORAL 12/30/18 09:00 01/27/19 10:44 01/01/19 08:46 Aspirin (ASA) 81 mg DAILY ORAL 12/30/18 09:00 01/28/19 08:59 01/01/19 08:52 Clonidine HCl (Catapres Tab) 0.1 mg BID ORAL 12/30/18 09:00 01/28/19 10:44 01/01/19 08:51 Dextrose 1,000 ml @ 75 mls/hr [id number] IV 12/30/18 18:30 01/28/19 18:29 12/31/18 21:37 Dextrose (Dextrose 50%) 25 ml Q30M PRN IV Hypoglycemia 12/29/18 18:15 01/27/19 09:44 Dextrose (Dextrose 50%) 50 ml Q30M PRN IV Hypoglycemia 12/29/18 18:15 01/27/19 09:44 Docusate Sodium (Colace) 100 mg TID ORAL 12/31/18 09:00 01/29/19 17:59 01/01/19 08:52 Insulin Aspart (NovoLOG) BEFORE MEALS AND HS SUBQ 12/29/18 21:00 01/28/19 11:29 01/01/19 07:22 Insulin Aspart (NovoLOG) 12 units NOVOTIAC SUBQ 12/31/18 11:50 01/28/19 11:49 01/01/19 06:30 Insulin Detemir (Levemir) 10 units BEDTIME SUBQ 12/30/18 21:00 01/29/19 20:59 12/31/18 21:49 Insulin Detemir (Levemir) 35 units DAILY SUBQ 01/01/19 09:00 01/28/19 10:29 Levetiracetam 100 ml @ 400 mls/hr Q12HR IVPB 12/29/18 21:00 01/27/19 10:29 01/01/19 08:45 Metoprolol Tartrate (Lopressor) 25 mg Q12HR ORAL 12/29/18 21:00 01/27/19 20:59 01/01/19 08:51 Pantoprazole (Protonix) 40 mg EVERY 12 HOURS IVP 12/29/18 21:00 01/27/19 20:59 01/01/19 08:45 Piperacillin Sod/ Tazobactam Sod 3.375 gm/Sodium Chloride 110 ml @ 27.5 mls/hr EVERY 8 HOURS IVPB 12/30/18 14:00 01/04/19 13:59 01/01/19 07:23 Sennosides (Senokot) 8.6 mg DAILY PRN ORAL Constipation 12/30/18 10:15 01/29/19 10:14 12/30/18 12:51 Vancomycin HCl (Vanco rx to dose) 1 ea DAILY PRN MISC Per rx protocol 12/30/18 17:30 01/29/19 17:29 Vancomycin HCl 1.25 gm/Dextrose 275 ml @ 183.333 mls/hr ONCE ONCE IVPB 01/01/19 10:00 01/01/19 11:29 Marcelino Strickland MD Jan 01, 2019 09:47
[2019-01-01] MEDS ORDERED: Vancomycin 1.25gm/NS Premix IVPB ONE (10:00)
[2019-01-01] MEDS ORDERED: Vancomycin 1.25 GM in D5W 275 ML IVPB ONE (10:00)
--- NOTE | 2019-01-01 10:02 | NUR ---
CASE MANAGEMENT:REVIEW 01/01/19 SI: SEPSIS. DKA. ACUTE RENAL FAILURE. ELEVATED TROPONIN 97.2 63 23 144/74 95% ON RA H/H-11.9/35.5 PLT-131 BUN+27 CR+2.0 IS: IV VANCOMYCIN X1 IV ZOSYN Q8HRS LEVEMIR SQ QD NOVOLOG SQ TID LEVEMIR SQ QHS NORVASC PO QD ELIQUIS PO BID ASA PO QD IV KEPPRA Q12 LOPRESSOR PO Q12 IV PROTONIX Q12 : TELEMETRY STATUS DCP: FROM [facility]: PT BECKY
[2019-01-01] MEDS: Levemir Flexpen SUBQ SCH ×2 (10:03→21:31)
--- NOTE | 2019-01-01 10:49 | Cardiac Electrophysiology PN ---
Assessment/Plan Assessment/Plan 1. [id number] myocardial infarction, type 2 due to renal failure and dehydration. His BUN was 72 and creatinine was 3.9 and his sodium was 165 on admission. The patient currently does not have any chest pain. Continue medical therapy with aspirin and beta-reva as well as statin. The patient is not a candidate for coronary intervention in view of renal failure and no CP. Treat the patient medically at this time.Echo EF 55% 2. Hypertension. Continue amlodipine 5 mg daily, metoprolol 25 bid and clonidine 0.1 mg b.i.d. 3. Hx of atrial fib on Lopressor 25 bid and Eliquis 4. Positive blood cultures on iv Abx 5. Uncontrolled diabetes, on insulin. 6. Seizures. 7. Altered mental status. Further evaluation by Neurology. 8. DVT on Eliquis EUNICE RN Subjective Subjective Alert in NAD. No CP or SOB. In SR with PACs.No VT or atrial fib. At times sandi. Objective Last 24 Hour Vital Signs Date Time Temp Pulse Resp B/P (MAP) Pulse Ox O2 Delivery O2 Flow Rate FiO2 01/01/19 08:51 63 144/74 01/01/19 08:51 144/74 01/01/19 08:51 63 144/74 01/01/19 08:13 Room Air 01/01/19 08:00 97.2 63 23 144/74 (97) 95 01/01/19 04:00 69 01/01/19 04:00 98.0 67 18 116/62 (80) 94 01/01/19 00:00 66 01/01/19 00:00 98.0 63 18 134/80 (98) 96 12/31/18 21:37 69 128/81 12/31/18 21:00 Room Air 12/31/18 20:29 69 18 96 Room Air 21 12/31/18 20:00 98.3 69 18 128/81 (97) 96 12/31/18 20:00 68 12/31/18 17:06 128/78 12/31/18 16:00 70 12/31/18 16:00 97.4 61 20 125/82 (96) 94 12/31/18 13:26 67 18 96 Room Air 21 12/31/18 12:00 97.9 68 19 128/80 (96) 97 12/31/18 12:00 70 Intake and Output 12/31/18 01/01/19 18:59 06:59 Intake Total 555 ml 06795 ml Output Total 2400 ml Balance 555 ml 8250 ml Intake Oral 120 ml 360 ml IV Total 435 ml 9000 ml Tube Feeding 90 ml Other 1200 ml Output Urine Total 2400 ml # Bowel Movements 3 Laboratory Tests Test 01/01/19 06:44 White Blood Count 7.1 K/UL (4.8-10.8) Red Blood Count 3.87 M/UL (4.70-6.10) L Hemoglobin 11.9 G/DL (14.2-18.0) L Hematocrit 35.5 % (42.0-52.0) L Mean Corpuscular Volume 92 FL (80-99) Mean Corpuscular Hemoglobin 30.7 PG (27.0-31.0) Mean Corpuscular Hemoglobin Concent 33.4 G/DL (32.0-36.0) Red Cell Distribution Width 11.5 % (11.6-14.8) L Platelet Count 131 K/UL (150-450) L Mean Platelet Volume 9.4 FL (6.5-10.1) Neutrophils (%) (Auto) 59.4 % (45.0-75.0) Lymphocytes (%) (Auto) 25.4 % (20.0-45.0) Monocytes (%) (Auto) 11.3 % (1.0-10.0) H Eosinophils (%) (Auto) 3.4 % (0.0-3.0) H Basophils (%) (Auto) 0.6 % (0.0-2.0) Sodium Level 144 MMOL/L (136-145) Potassium Level 4.3 MMOL/L (3.5-5.1) Chloride Level 113 MMOL/L (98-107) H Carbon Dioxide Level 23 MMOL/L (21-32) Anion Gap 8 mmol/L (5-15) Blood Urea Nitrogen 27 mg/dL (7-18) H Creatinine 2.0 MG/DL (0.55-1.30) H Estimat Glomerular Filtration Rate mL/min (>60) Glucose Level 182 MG/DL (74-106) H Calcium Level 8.2 MG/DL (8.5-10.1) L Phosphorus Level 2.8 MG/DL (2.5-4.9) Magnesium Level 1.9 MG/DL (1.8-2.4) Random Vancomycin Level 13.1 ug/mL Objective HEAD AND NECK: No JVD. LUNGS: Clear. CARDIOVASCULAR: Regular S1 and S2 with no gallop or murmur. ABDOMEN: Soft. EXTREMITIES: No pitting edema. Raymon Mendieta MD Jan 01, 2019 10:49
--- NOTE | 2019-01-01 11:43 | NUR ---
RD ASSESSMENT & RECOMMENDATIONS SEE CARE ACTIVITY FOR COMPLETE ASSESSMENT DAILY ESTIMATED NEEDS: Needs based on DKA, cardiac/ 88kg abw 20-25 kcals/kg 7814-5018 total kcals 1-1.5 g protein/kg 88-132 g total protein 25-30 mL/kg 0842-1791 total fluid mLs NUTRITION DIAGNOSIS: * Swallowing difficulty R/T dysphagia, h/o CVA as evidenced by EMBOSSING MACHINE OPERATOR HELPER recommends pureed moist, NTL. * Altered nutrition related lab values R/T DKA, JERMAN, clinical condition as evidenced by BG of 1501 upon adm-> now improved (POC glu 153-421), A1C of 12.0, U glu 4+, U ketone 2+, elev creat (2.0) CURRENT DIET:CCHO LOW, pureed moist, NTL PO DIET RECOMMENDATIONS: CCHO MED, LOW NA/ texture per EMBOSSING MACHINE OPERATOR HELPER ADDITIONAL RECOMMENDATIONS: 1) EMBOSSING MACHINE OPERATOR HELPER re-eval for texture upgrade 2) Consider DC D5 IVF for improved BG control: Na now wnl 3) DM diet ed provided 01/01 4) Calibrated bedscale wt for accurate CBW
[2019-01-01 12:00] VITALS: BP 105/72
--- NOTE | 2019-01-01 13:58 | NUR ---
ST NOTE: SWALLOW STATUS PATIENT DISLIKES PUREED DIET AND ALTHOUGH HE WILL EAT 75 TO 100% MOST OF THE TIME HE IS REFUSING THIS DIET. WILL UPGRADE TO MECH SOFT FINELY CHOPPED (CLOSER TO SNF DIET LEVEL) AND CLEAR FOR THIN LIQUIDS AFTER MOD BARIUM SWALLOW STUDY SINCE HE DISLIKES NECTAR THICK LIQUIDS (BUT ADMITS THAT HE DOES COUGH WITH WATER). UNABLE TO COMPLETE MODIFIED BARIUM SWALLOW STUDY DUE TO SCHEDULE CONFLICTS. GOALS MET FOR NEW STAFF EDUCATED/TRAINED IN ASPIRATION PRECAUTIONS. GOALS VARIABLY MET WITH INTAKE PLAN: UPGRADE DIET TO MECH SOFT FINELY CHOPPED AND CONTINUE WITH NECTAR THICK LIQUIDS FOR NOW WITH POSTED PRECAUTIONS. CONTINUE WITH PLAN OF CARE IN SWALLOW EVAL REPORT. D/W PATIENT, RN AND DR GORMAN CONTINUE WITH
--- NOTE | 2019-01-01 14:25 | NUR ---
NURSE NOTES: Patient taken down for MRI of the brain.
--- NOTE | 2019-01-01 15:44 | General Progress Note ---
Assessment/Plan Problem List: (1) Renal failure ICD Codes: N19 - Unspecified kidney failure SNOMED: 18808715 Qualifiers: Qualified Codes: N17.9 - Acute kidney failure, unspecified (2) Sepsis ICD Codes: A41.9 - Sepsis, unspecified organism SNOMED: 96571274, 212277068, 679575960 Qualifiers: Qualified Codes: A41.9 - Sepsis, unspecified organism (3) Elevated troponin ICD Codes: R74.8 - Abnormal levels of other serum enzymes SNOMED: 246821722, 225426535, 358535312 (4) CAD (coronary artery disease) ICD Codes: I25.10 - Atherosclerotic heart disease of [place] coronary artery without angina pectoris SNOMED: 07138210 (5) CKD (chronic kidney disease) stage 3, GFR 30-59 ml/min ICD Codes: N18.3 - Chronic kidney disease, stage 3 (moderate) SNOMED: 343948880 (6) History of DVT (deep vein thrombosis) ICD Codes: Z86.718 - Personal history of other venous thrombosis and embolism SNOMED: 675232446 (7) History of hyperlipidemia ICD Codes: Z86.39 - Personal history of other endocrine, nutritional and metabolic disease SNOMED: 155056447 (8) History of neuropathy ICD Codes: Z86.69 - Personal history of other diseases of the nervous system and sense organs SNOMED: 872810460, 410749971 (9) History of chronic hypertension ICD Codes: Z86.79 - Personal history of other diseases of the circulatory system SNOMED: 263672188 (10) Diabetes mellitus ICD Codes: E11.9 - Type 2 diabetes mellitus without complications SNOMED: 91240293 Qualifiers: (11) Hyperglycemia ICD Codes: R73.9 - Hyperglycemia, unspecified SNOMED: 66947914 (12) DKA (diabetic ketoacidoses) ICD Codes: E11.10 - Type 2 diabetes mellitus with ketoacidosis without coma SNOMED: 81328452, 354896288 Qualifiers: Qualified Codes: E13.11 - Other specified diabetes mellitus with ketoacidosis with coma (13) Hyperkalemia ICD Codes: E87.5 - Hyperkalemia SNOMED: 56079132 (14) Acute kidney injury superimposed on CKD ICD Codes: N17.9 - Acute kidney failure, unspecified; N18.9 - Chronic kidney disease, unspecified SNOMED: 55662936, 748688256 Status: progressing - improving Assessment/Plan: Status: progressing - improving Assessment/Plan: Silvio Abraham is a 73 yo man with PMH of DMII (diet controlled not on meds) , epilepsy on AED, CKD stage III (baseline creatinine ~1.5), CAD, CVA with residual weakness and dysphagia, hx DVTs, and HTN who presented from [facility] with AMS, found with leukocytosis 15.5, hyperkalemia 7.1, BUN/Cr 96/5.7, ABG 7.16/37/86.5/13.2, BNP 1640, glucose 1501, troponin 0.103, and positive ketones in urine, admitted to medical ICU for DKA, possible PNA, JERMAN on CKD with hyperkalemia, and likely demand NSTEMI. Patient now with resolved DKA. #New slurred speech. May be manifestation of prior stroke in the setting of recent infection. #Metabolic encephalopathy - Resolved #hx of epilepsy > CT head without acute pathology, chronic small vessel changes, cerebral parenchymal volume loss 2/2 age. EEG: Diffuse encephalopathy. - Encephalopathy in setting of DKA, JERMAN, and possible infection. Mental status much improved. Patient back to baseline mental status per family - Treatment of DKA and infection as per below - Continue home keppra 500mg BID - Hold home gabapentin 400mg PO BID given AMS and JERMAN - No longer requiring soft wrist restraints, cooperative now - MRI brain to eval for stroke - Neurology consult: Dr. Diaz to evaluate #DKA - resolved, hx DMII (not on medications) with hyperglycemia - IMPROVING > Glucose 1501 on admission, AG 20, +ketones in urine ABG 7.169/37/86.5/13.2 on admission - Continue levemir to 35 units QAm and 10 units QHS - Continue Lispro to 12 units TIDAC - Monitor FS ACHS - hgb A1C 12 this admission. Will need insulin on discharge. #JERMAN on CKD (baseline creatinine ~1.5) - improving, hyperkalemia in setting of JERMAN and acidemia - resolved, hypokalemia - resolved, metabolic acidosis - resolved, severe hypernatremia > BUN/Cr 96/5.7 on admission > Likely prerenal 2/2 severe dehydration > EKG with peak T waves on admission > s/p insulin, calcium gluconate, sodium bicarb x1 in ED > Hyperkalemia resolved with insulin with development of subsequent hypokalemia due to shift, now resolved with repletion. > Metabolic acidosis resolved with resolution of DKA - D/C IV fluids today - Free water deficit of 8.8L. Start D5W@ 125cc/hr 12/20/18. Ending 01/01/19. Will need to watch FS closely. Encourage free water intake. - Monitor BMP q8-12hrs. Avoid overcorrection of sodium. - Strict I/Os monitoring #Sepsis / possible PNA - IMproving - Possible PNA as trigger for DKA, question aspiration given patient's hx of seizures and dysphagia and RN report of coughing with water on day of admission - CXR with atelectasis vs infiltrate in medial lung basis - Afebrile with leukocytosis 15.5 on admission. WBC up to 19.1 - Zosyn 2.25mg IV q8hr renally (12/28- ) Plan for 5-7 days course pending clinical improvement - Blood cultures: One bottle positive, aerobic Gram positive cocci in clusters. - S. Homininis. Likely contaminant per ID consult: Dr. De Anda. - UA unremarkable for acute infection - Currently satting well on RA - Aspiration precautions # Demand NSTEMI, hx HTN, CAD, DVTs #Systolic heart failure, EF 40%. Compensated. No interventions per cardiology - Troponin 0.103 on admission, without ST EKG changes, likely demand ischemia in setting of JERMAN on CKD and DKA/sepsis - Repeat troponin 0.772 this morning, patient remains asymptomatic, demand ischemia, trend to downtrend - Continue home aspirin 81mg PO daily - Continue home metoprolol 25mg PO BID - Hold home losartan 50mg PO daily given JERMAN - Resume home amlodipine 5mg PO daily and clonidine 0.1mg PO BID as BP rising today - Continue home eliquis, change to renal dose 2.5mg PO BID -Cardiology consult: Dr. Mendieta. 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 I spent 36 minutes on this patient's case with >50% on counseling and coordination of care. Subjective Constitutional: Denies: chills, diaphoresis, fever, malaise, weakness, other HEENT: Denies: eye pain, blurred vision, tearing, double vision, ear pain, ear discharge, nose pain, nose congestion, throat pain, throat swelling, mouth pain , mouth swelling, other Cardiovascular: Denies: chest pain, edema, irregular heart rate, lightheadedness, palpitations, syncope, other Respiratory: Denies: cough, orthopnea, shortness of breath, SOB with excertion , SOB at rest, sputum, stridor, wheezing, other Gastrointestinal/Abdominal: Denies: abdomen distended, abdominal pain, black stools, tarry stools, blood in stool, constipated, diarrhea, difficulty swallowing, nausea, poor appetite, poor fluid intake, rectal bleeding, vomiting , other Genitourinary: Denies: no symptoms, burning, discharge, frequency, flank pain, hematuria, incontinence, pain, urgency, other Neurologic/Psychiatric: Denies: anxiety, depressed, emotional problems, headache, numbness, paresthesia, pre-existing deficit, seizure, tingling, tremors, weakness, other Endocrine: Denies: excessive sweating, flushing, intolerance to cold, intolerance to heat, increased hunger, increased thirst, increased urine, unexplained weight gain, unexplained weight loss, other Hematologic/Lymphatic: Denies: anemia, easy bleeding, easy bruising, other Allergies: Coded Allergies: CODEINE (Unverified Allergy, Unknown, 10/16/18) Subjective No acute events overnight. PNA: improving. Breathing is better. Back to baseline. Denies SOB, Cough. Afebrile. Vitals stable. DM2: Blood sugars improved. FBS 153 today. No hypoglycemic events Slurred/delayed speech: Since hospitalization. Has not changed. New. No other new focal signs. No dysphagia, numbness/tingling. Constant. Per patient this still has not improved. Objective Last 24 Hour Vital Signs Date Time Temp Pulse Resp B/P (MAP) Pulse Ox O2 Delivery O2 Flow Rate FiO2 01/01/19 12:00 98.3 64 23 105/72 (83) 96 01/01/19 12:00 57 01/01/19 09:42 61 16 93 Room Air 21 01/01/19 08:51 63 144/74 01/01/19 08:51 144/74 01/01/19 08:51 63 144/74 01/01/19 08:13 Room Air 01/01/19 08:00 72 01/01/19 08:00 97.2 63 23 144/74 (97) 95 01/01/19 04:00 69 01/01/19 04:00 98.0 67 18 116/62 (80) 94 01/01/19 00:00 66 01/01/19 00:00 98.0 63 18 134/80 (98) 96 12/31/18 21:37 69 128/81 12/31/18 21:00 Room Air 12/31/18 20:29 69 18 96 Room Air 21 12/31/18 20:00 98.3 69 18 128/81 (97) 96 12/31/18 20:00 68 12/31/18 17:06 128/78 12/31/18 16:00 70 12/31/18 16:00 97.4 61 20 125/82 (96) 94 Intake and Output 12/31/18 01/01/19 19:00 07:00 Intake Total 555 ml 05614 ml Output Total 2400 ml Balance 555 ml 8250 ml Intake Oral 120 ml 360 ml IV Total 435 ml 9000 ml Tube Feeding 90 ml Other 1200 ml Output Urine Total 2400 ml # Bowel Movements 3 Laboratory Tests 01/01/19 06:44: White Blood Count 7.1, Red Blood Count 3.87L, Hemoglobin 11.9L, Hematocrit 35.5L , Mean Corpuscular Volume 92, Mean Corpuscular Hemoglobin 30.7, Mean Corpuscular Hemoglobin Concent 33.4, Red Cell Distribution Width 11.5L, Platelet Count 131L, Mean Platelet Volume 9.4, Neutrophils (%) (Auto) 59.4, Lymphocytes (%) (Auto) 25.4, Monocytes (%) (Auto) 11.3H, Eosinophils (%) (Auto) 3.4H, Basophils (%) (Auto) 0.6, Sodium Level 144, Potassium Level 4.3, Chloride Level 113H, Carbon Dioxide Level 23, Anion Gap 8, Blood Urea Nitrogen 27H, Creatinine 2.0H, Estimat Glomerular Filtration Rate , Glucose Level 182H, Calcium Level 8.2L, Phosphorus Level 2.8, Magnesium Level 1.9, Random Vancomycin Level 13.1 Height (Feet): 5 Height (Inches): 8.00 Weight (Pounds): 215 General Appearance: WD/WN, no apparent distress, alert EENT: PERRL/EOMI, normal ENT inspection Neck: non-tender, normal alignment, supple Cardiovascular: normal peripheral pulses, normal rate, regular rhythm, no JVD Respiratory/Chest: chest wall non-tender, lungs clear, normal breath sounds Abdomen: normal bowel sounds, non tender, soft Extremities: other - no LE edema bilaterally 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 Jan 01, 2019 15:44
[2019-01-01 16:00] VITALS: BP 125/68
--- NOTE | 2019-01-01 16:01 | Diagnostic Imaging Report ---
Indication: 73-year-old male with new onset slurred speech. Technique: The head was imaged in a 1.5 Mary Carmen magnet. Sequences obtained include sagittal and axial T1 FLAIR, axial T2 fast spin echo with fat saturation, axial T2* GRE, axial T2 FLAIR, diffusion and ADC map. Comparison: None Findings: There is motion related artifact limiting evaluation. Some of the sequences were incomplete or nondiagnostic due to motion. There is mild prominence of the sulci, ventricles, and basal cisterns consistent with mild cerebral atrophy. There is moderate cerebellar atrophy. Mild, nonspecific T2 hyperintensity noted within white matter. This may be due to chronic small vessel disease. There is no restricted diffusion. Horne-white differentiation is normal. There is no mass effect, midline shift, edema, or hemorrhage. There are no abnormal extra-axial or intra-axial fluid collections. The corpus callosum and sella are unremarkable. The brainstem and cerebellum are unremarkable. Bone marrow signal within the visualized osseous structures appears age appropriate and unremarkable otherwise. Impression: No evidence of acute CVA, hemorrhage or edema. No obvious acute intracranial findings. Limited study due to motion. Mild cerebral and moderate cerebellar atrophy. Evidence of chronic small vessel disease involving white matter tracts.
--- NOTE | 2019-01-01 18:20 | Infectious Diseases Prog Note ---
Assessment/Plan Assessment/Plan ASSESSMENT/PLAN: 1. possible aspiration pna, sepsis, leukocytosis, ams, slurred speech - change to augmentin x 5 days - discontinue zosyn - monitor labs - chest x-ray improved - d/w Dr. Leiva - leukocytosis resolved 2. Acute kidney injury and elevated creatinine. 3. Chronic kidney disease. 4. Anemia. 5. Hypernatremia. 6. Hypertension. 7. Diabetes. 8. Blood sugar and blood pressure treatment per primary for diabetes and hypertension. 9. CAD. 10. CVA. 11. Weakness. 12. Dysphagia. 13. Epilepsy. 14. CAD and chronic kidney disease treatment per primary. 15. Continue treatment per primary consultants. 16. He is allergic to codeine. 17. Social history is negative. 18. Family history is noncontributory. 19. MAR was noted. 20. Case was discussed with RN. 21. He has a Severino in. 22. Skin care per protocol. 23. Notes and records were noted. Orders were entered. Subjective Constitutional: Reports: fatigue, other - alert and responsive ; Denies: fever HEENT: Denies: congestion Respiratory: Denies: shortness of breath Cardiovascular: Denies: chest pain Gastrointestinal/Abdominal: Denies: nausea, vomiting, diarrhea Genitourinary: Reports: other - + severino ; Denies: dysuria, hematuria, frequency Neurologic: Denies: headache Psychiatric: Denies: depression, anxiety Skin: Denies: rash Hematologic: Denies: bleeding Musculoskeletal: Denies: pain Allergies: Coded Allergies: CODEINE (Unverified Allergy, Unknown, 10/16/18) Objective Vital Signs Last 24 Hour Vital Signs Date Time Temp Pulse Resp B/P (MAP) Pulse Ox O2 Delivery O2 Flow Rate FiO2 01/01/19 16:56 125/68 01/01/19 16:00 98.0 66 22 125/68 (87) 98 01/01/19 12:00 98.3 64 23 105/72 (83) 96 01/01/19 12:00 57 01/01/19 09:42 61 16 93 Room Air 21 01/01/19 08:51 63 144/74 01/01/19 08:51 144/74 01/01/19 08:51 63 144/74 01/01/19 08:13 Room Air 01/01/19 08:00 72 01/01/19 08:00 97.2 63 23 144/74 (97) 95 01/01/19 04:00 69 01/01/19 04:00 98.0 67 18 116/62 (80) 94 01/01/19 00:00 66 01/01/19 00:00 98.0 63 18 134/80 (98) 96 12/31/18 21:37 69 128/81 12/31/18 21:00 Room Air 12/31/18 20:29 69 18 96 Room Air 21 12/31/18 20:00 98.3 69 18 128/81 (97) 96 12/31/18 20:00 68 Height (Feet): 5 Height (Inches): 8.00 Weight (Pounds): 215 General Appearance: no acute distress HEENT: normocephalic, atraumatic, anicteric, mucous membranes moist Respiratory/Chest: lungs clear, normal breath sounds, no respiratory distress, no accessory muscle use Cardiovascular: normal rate, regular rhythm, no gallop/murmur, no JVD Abdomen: normal bowel sounds, soft, non tender, no organomegaly, non distended Genitourinary: other - no severino Extremities: no cyanosis Skin: no rash 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 The lungs otherwise appear clear. Pleural space: Unremarkable. The costophrenic angles are sharp. No visible pneumothorax. Heart: Unremarkable. No cardiomegaly. Mediastinum: Unremarkable. Bones joints: Unremarkable. Tubes, lines and devices: Telemetry leads overlie the thorax. IMPRESSION: Subsegmental atelectasis versus infiltrates in the medial lung bases. Chest x-ray - 12/31/18 - NAD Microbiology Date/Time Source Procedure Growth Status 12/28/18 10:45 Blood Blood Culture - Preliminary NO GROWTH AFTER 72 HOURS Resulted 12/28/18 07:00 Nasal Nares MRSA Culture - Final NO METHICILLIN RESISTANT STAPH AUREUS... Complete 12/28/18 07:00 Rectum VRE Culture - Final NO VANCOMYCIN RESISTANT ENTEROCOCCUS ... 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 Laboratory Tests Test 01/01/19 06:44 White Blood Count 7.1 K/UL (4.8-10.8) Red Blood Count 3.87 M/UL (4.70-6.10) L Hemoglobin 11.9 G/DL (14.2-18.0) L Hematocrit 35.5 % (42.0-52.0) L Mean Corpuscular Volume 92 FL (80-99) Mean Corpuscular Hemoglobin 30.7 PG (27.0-31.0) Mean Corpuscular Hemoglobin Concent 33.4 G/DL (32.0-36.0) Red Cell Distribution Width 11.5 % (11.6-14.8) L Platelet Count 131 K/UL (150-450) L Mean Platelet Volume 9.4 FL (6.5-10.1) Neutrophils (%) (Auto) 59.4 % (45.0-75.0) Lymphocytes (%) (Auto) 25.4 % (20.0-45.0) Monocytes (%) (Auto) 11.3 % (1.0-10.0) H Eosinophils (%) (Auto) 3.4 % (0.0-3.0) H Basophils (%) (Auto) 0.6 % (0.0-2.0) Sodium Level 144 MMOL/L (136-145) Potassium Level 4.3 MMOL/L (3.5-5.1) Chloride Level 113 MMOL/L (98-107) H Carbon Dioxide Level 23 MMOL/L (21-32) Anion Gap 8 mmol/L (5-15) Blood Urea Nitrogen 27 mg/dL (7-18) H Creatinine 2.0 MG/DL (0.55-1.30) H Estimat Glomerular Filtration Rate mL/min (>60) Glucose Level 182 MG/DL (74-106) H Calcium Level 8.2 MG/DL (8.5-10.1) L Phosphorus Level 2.8 MG/DL (2.5-4.9) Magnesium Level 1.9 MG/DL (1.8-2.4) Vitamin B12 Level Pending Methylmalonic Acid Pending Random Vancomycin Level 13.1 ug/mL Rapid Plasma Reagin Pending Treponema pallidum Ab (FTA-ABS) Pending Current Medications Medications (Trade) Dose Ordered Sig/[place] Route PRN Reason Start Time Stop Time Status Last Admin Dose Admin Acetaminophen (Tylenol) 650 mg Q6HR PRN ORAL pain or fever T>101 12/29/18 18:30 01/28/19 18:29 Albuterol/ Ipratropium (Albuterol/ Ipratropium) 3 ml Q4H PRN HHN Shortness of Breath 12/30/18 17:00 01/04/19 16:59 Amlodipine Besylate (Norvasc) 5 mg DAILY ORAL 12/30/18 09:00 01/28/19 10:44 01/01/19 08:51 Apixaban (Eliquis) 2.5 mg BID ORAL 12/30/18 09:00 01/27/19 10:44 01/01/19 16:55 Aspirin (ASA) 81 mg DAILY ORAL 12/30/18 09:00 01/28/19 08:59 01/01/19 08:52 Clonidine HCl (Catapres Tab) 0.1 mg BID ORAL 12/30/18 09:00 01/28/19 10:44 01/01/19 16:56 Dextrose (Dextrose 50%) 25 ml Q30M PRN IV Hypoglycemia 12/29/18 18:15 01/27/19 09:44 Dextrose (Dextrose 50%) 50 ml Q30M PRN IV Hypoglycemia 12/29/18 18:15 01/27/19 09:44 Docusate Sodium (Colace) 100 mg TID ORAL 12/31/18 09:00 01/29/19 17:59 01/01/19 16:55 Insulin Aspart (NovoLOG) BEFORE MEALS AND HS SUBQ 12/29/18 21:00 01/28/19 11:29 01/01/19 16:59 Insulin Aspart (NovoLOG) 12 units NOVOTIAC SUBQ 12/31/18 11:50 01/28/19 11:49 01/01/19 17:00 Insulin Detemir (Levemir) 10 units BEDTIME SUBQ 12/30/18 21:00 01/29/19 20:59 12/31/18 21:49 Insulin Detemir (Levemir) 35 units DAILY SUBQ 01/01/19 09:00 01/28/19 10:29 01/01/19 10:03 Levetiracetam 100 ml @ 400 mls/hr Q12HR IVPB 12/29/18 21:00 01/27/19 10:29 01/01/19 08:45 Metoprolol Tartrate (Lopressor) 25 mg Q12HR ORAL 12/29/18 21:00 01/27/19 20:59 01/01/19 08:51 Pantoprazole (Protonix) 40 mg EVERY 12 HOURS IVP 12/29/18 21:00 01/27/19 20:59 01/01/19 08:45 Piperacillin Sod/ Tazobactam Sod 3.375 gm/Sodium Chloride 110 ml @ 27.5 mls/hr EVERY 8 HOURS IVPB 12/30/18 14:00 01/04/19 13:59 01/01/19 13:47 Sennosides (Senokot) 8.6 mg DAILY PRN ORAL Constipation 12/30/18 10:15 01/29/19 10:14 12/30/18 12:51 Vancomycin HCl (Vanco rx to dose) 1 ea DAILY PRN MISC Per rx protocol 12/30/18 17:30 01/29/19 17:29 Dung Riley MD Jan 01, 2019 18:20
--- NOTE | 2019-01-01 19:30 | NUR ---
NURSE NOTES: Received patient from Mirta HAYNES. Patient in bed, oriented x2, on room air, no signs of respiratory distress. Bed in low position, locked, bed alarm on, call light within reach.
--- NOTE | 2019-01-01 19:39 | NUR ---
HAND-OFF: Report given to Edwin Campos RN. Patient stable.
[2019-01-01 20:00] VITALS: BP 133/72
[2019-01-02] VITALS: BP 131/71
[2019-01-02 03:58] VITALS: BP 127/66
--- NOTE | 2019-01-02 04:30 | Consultation ---
DATE OF CONSULTATION: 01/01/2019 NEUROLOGICAL CONSULTATION CONSULTING PHYSICIAN: Alfa Diaz M.D. CHIEF COMPLAINT: This is the first [facility] admission for this 73-year-old right-handed man with a previous history of seizure disorder, on Keppra, stroke in the past approximately in 2006 with left-sided weakness. He has a history of "MS." He has a history of AODM, hypertension, and hyperlipidemia. He also has a history of DVTs, on Eliquis. He was admitted with a chief complaint of altered mental status and dysarthria, which is fairly new. He was subsequently found to have diabetic ketoacidosis. The patient's history is taken from his sister. The patient's last seizure was about a year or two ago. He had a stroke and left-sided weakness in the past . However, I do not have any further history of this. The patient has a previous history of dysphagia two days prior to stroke. He had tonic-clonic seizures. The patient was at a long term facility. He is generally talkative. The patient awoke on 12/28/2018 with slurred speech and altered mental status. He was sent to the emergency room. As I mentioned, his blood gas revealed a pH of 7.169, pCO2 of 37.1, and pO2 of 86.5; however, the base excess was -14.5. The patient's CBC revealed a hemoglobin of 15.2, MCV 104, MCHC was low at 28.7, his white count was 15,500 with a left shift. His white count on 12/29/2018 was 19,100 and subsequently it has gone back to normal, now 7100. He is anemic with a hemoglobin of 11.9, platelet count low, it was initially normal on admission at 131,000. His serum sodium was 158 on admission with a chloride of 125, BUN of 61, creatinine of 3.3, glucose . His serum sodium is now decreased to 124 today with a chloride of 113, BUN of 27, creatinine of 2. His blood sugar is 182 today. Troponin was 0.366, elevated. He had an acetone level in his blood. His PT and PTT are normal. The patient had a head CT on admission, which revealed some generalized cerebral parenchymal volume loss and periventricular white matter hypodensity. He had chronic small vessel disease changes. Chest x-ray yesterday revealed no change from his earlier chest x-ray from 12/28/2018. There is no acute process. Echocardiogram was done yesterday. His ejection fraction was 40% with . He did have global hypokinesis of the left ventricle. The patient had an MRI scan today, which revealed a motion artifact. No evidence of acute stroke. He had moderate cerebellar atrophy with mild cerebral atrophy. The patient's sister states he was not a drinker. Used to do crack cocaine. He quit smoking about 30 years ago, but smoked for at least 20 years with 1 to 2 packs per day. There is no history of headaches. He did have back surgery in the past. He has also had deep venous thrombosis and he was on Eliquis. He denies any numbness or tingling able to walk for "quite a long time." An EEG was done, which was abnormal revealing diffuse slowing in the delta and theta range. However, the study was done on 12/28/2018. EKG revealed prolonged QT waves, nonspecific intraventricular block, left axis deviation, nonspecific T-wave abnormalities. The patient had negative blood cultures. He was initially started on Zosyn 3.375 g IV piggyback q.8 h., vancomycin 125 mg IV piggyback, amlodipine, apixaban tablets 2.5 mg b.i.d., aspirin 81 mg, clonidine, Levemir, metoprolol tartrate 25 mg, Protonix, fluids, Colace, albuterol, . PAST MEDICAL HISTORY/PAST MEDICAL ILLNESSES: 1. Coronary artery disease. 2. Hypertension. 3. Generalized seizure disorder, see above. 4. Hyperlipidemia. 5. Cerebrovascular disease. 6. Peripheral neuropathy from diabetes, on gabapentin. MEDICATIONS: He is on amlodipine on admission, Eliquis, aspirin 81 mg, atorvastatin, calcium, clonidine HCl, gabapentin, Keppra 500 mg q.12 h., and metoprolol tartrate 25 mg b.i.d. ALLERGIES: He denied any allergies, although may be allergic to codeine. FAMILY HISTORY: Unavailable. Sister is a half-sister. SOCIAL HISTORY: He has 10 children. . The patient has healthy children. REVIEW OF SYSTEMS: His appetite is good. I do not know his weight. PHYSICAL EXAMINATION: GENERAL: He is a well-developed, well-nourished, obese man, lying in bed. VITAL SIGNS: Blood pressure is 125/68, temperature 108 degrees, and respiratory rate is 22. HEENT: Revealed poor dentition. Bilateral arcus senilis. NECK: Supple. There is no tenderness. Carotids are +2. No bruits can be appreciated. LUNGS: Breath sounds are decreased, labored. CARDIOVASCULAR: PMI could not be felt. JVP is not visualized. The patient's heart tones are distant. There is no S3, S4, murmurs, or rubs appreciated. ABDOMEN: Obese. Bowel sounds intact. There is no tenderness, masses, or organomegaly. BACK: There is no tenderness to percussion. EXTREMITIES: +2 peripheral pulses in the arms. . NEUROLOGIC EXAMINATION: MENTAL STATUS: He appeared to be awake. Judgment could not be tested. The patient is alert. Affect is appropriate. Memory, past memory is intact to his birthday 1945. Immediate recall 3/3 objects. Recent recall is 0/3 objects at 5 minutes. Orientation, he thought the month was December. He thought the year was 2000. Place, he knew he is in the hospital in [place], does not know the name. He is oriented to person. Language function, spoken speech was dysarthric. There were no paraphasias noticeable. His simple naming hat and pen was intact. Simple repetition was intact beside the dysarthria. There is no right left confusion. He had trouble saying 4 numbers backwards out of order. CRANIAL NERVE EXAMINATION: CRANIAL NERVES II: Visual watkins were intact to confrontation. Fundi were not well visualized. CRANIAL NERVES III, IV, AND : Extraocular motility was full with right and left gaze-evoked horizontal jerk nystagmus. Pupils are approximately 5 mm, round, and very sluggishly reactive to light. CRANIAL NERVE V: Facial and corneal sensations intact. Pterygoid strength was 5/5. CRANIAL NERVE VII: Facial strength is 5/5 bilaterally. CRANIAL NERVE VIII: Auditory acuity is impaired bilaterally. CRANIAL NERVES IX AND X: Gag is decreased bilaterally. CRANIAL NERVE XI: Sternocleidomastoid strength is 5/5. CRANIAL NERVE XII: Tongue protrudes in the midline without fasciculations or atrophy. MUSCLE EXAMINATION: Muscle bulk is slightly decreased in the lower extremities. Tone revealed paratonia. Strength is probably 5/5, maybe 5 in the upper extremities, possibly 5-/5 in the upper extremities with the right pronation noted, but nothing on the left . Lower extremity strength was probably 5/5. Reflexes are good in the upper and lower extremities with withdrawal on testing for Babinski response. COORDINATION: [id number] revealed in the left upper and left lower extremities. right upper extremity is normal. There is minimal dysmetria noted. [id number] testing revealed tremor bilaterally, maybe worse on the left. GAIT AND STATION: The patient could not walk. SENSORY: Pinprick was probably partially intact. Proprioception was intact. Fine touch is subjectively intact. IMPRESSION: no evidence of stroke and no evidence of on the left side of the brainstem. We may want to repeat an MRI to confirm. The patient also has residual left-sided weakness, but has a new pronator drift. There is a questionable history of multiple sclerosis cerebellar degenerative disease. is out of proportion to the atrophy in the brain. There are no significant injuries that are suggestive of multiple sclerosis. He has metabolic encephalopathy from the diabetic ketoacidosis, which is improving. He should continue his treatment. EEG was consistent with diffuse metabolic encephalopathy. obtain thyroid functions and TSH. working up for cerebellar degenerative disease at a later date including . The patient had DVTs in the past should be looked into. We would continue him on his Keppra seizures. PLAN: 1. I will speak to you about this case. 2. . 3. Continue treatment. 4. Repeat MRI scan of the brain in a week or two. Thank you for this interesting case. Alfa Diaz MD DR: DARLIN JOB#: [id number] CC:
[2019-01-02] MEDS: NovoLOG Insulin Flexpen SUBQ SCH ×7 (06:30→21:16)
--- NOTE | 2019-01-02 07:18 | NUR ---
NURSE NOTES: RECEIVED PT IN BED WITH HOB ELEVATE 45 DEGREE ,AWAKE AND ALERT DENIES CP OR ANYN DISCOMFORT AT THIS TIME.FULL AM BODY ASSESSMENT DONE. PT REPOSITIONED IN BED AND MADE COMFORTABLE POSSIBLE.NO ACUTE DISTRESS NOTED AT THIS TIME.WILL CONT TO MONITOR.
[2019-01-02 07:42] LABS: BASOPHILS % (AUTO) 0.9 % (0.0-2.0); EOSINOPHILS % (AUTO) 2.6 % (0.0-3.0); HEMATOCRIT 33.3 % (42.0-52.0); LYMPHOCYTES % (AUTO) 23.2 % (20.0-45.0); MEAN CORPUSCULAR VOLUME 92 FL (80-99); MONOCYTES % (AUTO) 12.5 % (1.0-10.0); NEUTROPHILS % (AUTO) 60.9 % (45.0-75.0); PLATELET COUNT 142 K/UL (150-450); RED BLOOD COUNT 3.63 M/UL (4.70-6.10); RED CELL DISTRIBUTION WIDTH 11.2 % (11.6-14.8); WHITE BLOOD COUNT 7.8 K/UL (4.8-10.8)
[2019-01-02 07:53] LABS: ANION GAP 8 mmol/L (5-15); BLOOD UREA NITROGEN 25 mg/dL (7-18); CALCIUM 8.5 MG/DL (8.5-10.1); CARBON DIOXIDE 22 MMOL/L (21-32); CHLORIDE 114 MMOL/L (98-107); CREATININE 1.8 MG/DL (0.55-1.30); POTASSIUM 4.3 MMOL/L (3.5-5.1); SODIUM 144 MMOL/L (136-145)
[2019-01-02 08:00] VITALS: BP 138/62
--- NOTE | 2019-01-02 09:48 | Pulmonology Progress Note ---
Assessment/Plan Problems: (1) DKA (diabetic ketoacidoses) (2) Acute kidney injury superimposed on CKD (3) Metabolic encephalopathy (4) Seizure (5) Hyperglycemia (6) Acidemia (7) History of chronic hypertension (8) Diabetes mellitus (9) History of hyperlipidemia (10) History of neuropathy (11) History of DVT (deep vein thrombosis) (12) CAD (coronary artery disease) (13) Elevated troponin (14) Sepsis Assessment/Plan Optimize pulmonary hygiene/mobilize as tolerated PRN O2 PRN HHN's Abx per ID Monitor volumes and renal function Diet per ESCALATOR ATTENDANT with STRICT aspiration precautions DVT Px: Eliquis Monitor MS, F/U neuro recs FC, continue to discuss GOC Subjective Allergies: Coded Allergies: CODEINE (Unverified Allergy, Unknown, 10/16/18) Subjective AFVSS on RA No cough, no SOB, no CP, no FC Objective Last 24 Hour Vital Signs Date Time Temp Pulse Resp B/P (MAP) Pulse Ox O2 Delivery O2 Flow Rate FiO2 01/02/19 08:00 97.9 66 20 138/62 (87) 99 66 01/02/19 04:00 62 01/02/19 03:58 97.5 67 18 127/66 (86) 96 01/02/19 00:00 98.6 61 18 131/71 (91) 97 01/02/19 00:00 64 01/01/19 21:00 Room Air 01/01/19 20:48 63 133/72 01/01/19 20:26 68 16 95 Room Air 21 01/01/19 20:00 63 01/01/19 20:00 98.1 63 18 133/72 (92) 98 01/01/19 16:56 125/68 01/01/19 16:00 98.0 66 22 125/68 (87) 98 01/01/19 16:00 60 01/01/19 12:00 98.3 64 23 105/72 (83) 96 01/01/19 12:00 57 Intake and Output 01/01/19 01/02/19 18:59 06:59 Intake Total 3550 ml Output Total 500 ml 1000 ml Balance 3050 ml -1000 ml Intake Oral 120 ml IV Total 3000 ml Tube Feeding 30 ml Other 400 ml Output Urine Total 500 ml 1000 ml # Bowel Movements 1 General Appearance: no acute distress, other - dysarthric HEENT: normocephalic, atraumatic, anicteric, mucous membranes moist Respiratory/Chest: chest wall non-tender, lungs clear, normal breath sounds, no respiratory distress Cardiovascular: normal peripheral pulses, normal rate, regular rhythm Abdomen: normal bowel sounds, soft, non tender, no organomegaly, non distended , no mass Extremities: no cyanosis, no clubbing, no edema Microbiology Date/Time Source Procedure Growth Status 12/31/18 11:10 Blood Blood Culture - Preliminary NO GROWTH AFTER 24 HOURS Resulted 12/31/18 11:00 Blood Blood Culture - Preliminary NO GROWTH AFTER 24 HOURS Resulted Laboratory Tests 01/02/19 06:48: White Blood Count 7.8, Red Blood Count 3.63L, Hemoglobin 11.0L, Hematocrit 33.3L , Mean Corpuscular Volume 92, Mean Corpuscular Hemoglobin 30.2, Mean Corpuscular Hemoglobin Concent 32.9, Red Cell Distribution Width 11.2L, Platelet Count 142L, Mean Platelet Volume 8.2, Neutrophils (%) (Auto) 60.9, Lymphocytes (%) (Auto) 23.2, Monocytes (%) (Auto) 12.5H, Eosinophils (%) (Auto) 2.6, Basophils (%) (Auto) 0.9, Sodium Level 144, Potassium Level 4.3, Chloride Level 114H, Carbon Dioxide Level 22, Anion Gap 8, Blood Urea Nitrogen 25H, Creatinine 1.8H, Estimat Glomerular Filtration Rate , Glucose Level 74#, Calcium Level 8.5 Current Medications Medications (Trade) Dose Ordered Sig/Sheeba Route PRN Reason Start Time Stop Time Status Last Admin Dose Admin Acetaminophen (Tylenol) 650 mg Q6HR PRN ORAL pain or fever T>101 12/29/18 18:30 01/28/19 18:29 Albuterol/ Ipratropium (Albuterol/ Ipratropium) 3 ml Q4H PRN HHN Shortness of Breath 12/30/18 17:00 01/04/19 16:59 Amlodipine Besylate (Norvasc) 5 mg DAILY ORAL 12/30/18 09:00 01/28/19 10:44 01/01/19 08:51 Amoxicillin/ Clavulanate Potassium (Augmentin) 500 mg Q12HR ORAL 01/01/19 21:00 01/08/19 20:59 01/01/19 20:48 Apixaban (Eliquis) 2.5 mg BID ORAL 12/30/18 09:00 01/27/19 10:44 01/01/19 16:55 Aspirin (ASA) 81 mg DAILY ORAL 12/30/18 09:00 01/28/19 08:59 01/01/19 08:52 Clonidine HCl (Catapres Tab) 0.1 mg BID ORAL 12/30/18 09:00 01/28/19 10:44 01/01/19 16:56 Dextrose (Dextrose 50%) 25 ml Q30M PRN IV Hypoglycemia 12/29/18 18:15 01/27/19 09:44 Dextrose (Dextrose 50%) 50 ml Q30M PRN IV Hypoglycemia 12/29/18 18:15 01/27/19 09:44 Docusate Sodium (Colace) 100 mg TID ORAL 12/31/18 09:00 01/29/19 17:59 01/01/19 16:55 Insulin Aspart (NovoLOG) BEFORE MEALS AND HS SUBQ 12/29/18 21:00 01/28/19 11:29 01/01/19 21:30 Insulin Aspart (NovoLOG) 9 units NOVOTIAC SUBQ 01/02/19 11:50 01/28/19 11:49 Insulin Detemir (Levemir) 5 units BEDTIME SUBQ 01/02/19 21:00 01/29/19 20:59 Insulin Detemir (Levemir) 35 units DAILY SUBQ 01/01/19 09:00 01/28/19 10:29 01/01/19 10:03 Levetiracetam 100 ml @ 400 mls/hr Q12HR IVPB 12/29/18 21:00 01/27/19 10:29 01/01/19 20:53 Metoprolol Tartrate (Lopressor) 25 mg Q12HR ORAL 12/29/18 21:00 01/27/19 20:59 01/01/19 20:48 Pantoprazole (Protonix) 40 mg EVERY 12 HOURS IVP 12/29/18 21:00 01/27/19 20:59 01/01/19 20:49 Sennosides (Senokot) 8.6 mg DAILY PRN ORAL Constipation 12/30/18 10:15 01/29/19 10:14 12/30/18 12:51 Marcelino Strickland MD Jan 02, 2019 09:48
[2019-01-02] MEDS: Pantoprazole Inj IVP SCH (09:50)
[2019-01-02] MEDS: Aspirin Baby 81mg ORAL SCH (09:51)
[2019-01-02] MEDS: Metoprolol 25mg tab ORAL SCH ×2 (09:51→21:14)
[2019-01-02] MEDS: Docusate 100mg cap ORAL SCH ×3 (09:52→17:29)
[2019-01-02] MEDS: Eliquis 2.5mg tablet ORAL SCH ×2 (09:52→17:30)
[2019-01-02] MEDS: levETIRAcetam 500mg/NS100ml 100 ML IVPB SCH ×2 (10:05→21:14)
--- NOTE | 2019-01-02 10:09 | Cardiac Electrophysiology PN ---
Assessment/Plan Assessment/Plan 1. Edi-MA-[id number] myocardial infarction, type 2 due to renal failure and dehydration. His BUN was 72 and creatinine was 3.9 and his sodium was 165 on admission. The patient currently does not have any chest pain. Continue medical therapy with aspirin, beta-reva and statin. Not a candidate for coronary intervention in view of renal failure and no CP. Treat the patient medically at this time.Echo EF 55% 2. Hypertension. Continue amlodipine 5 mg daily, metoprolol 25 bid and clonidine 0.1 mg b.i.d. 3. Atrial fib on Lopressor 25 bid and Eliquis 4. Positive blood cultures on iv Abx 5. Uncontrolled diabetes, on insulin. 6. Seizures. 7. Altered mental status. Further evaluation by Neurology. 8. DVT on Eliquis EUNICE RN Subjective Subjective Alert in NAD with no CP or SOB. In SR with PACs.No VT or atrial fib. Objective Last 24 Hour Vital Signs Date Time Temp Pulse Resp B/P (MAP) Pulse Ox O2 Delivery O2 Flow Rate FiO2 01/02/19 09:52 66 138/62 01/02/19 09:51 66 138/62 01/02/19 09:51 138/62 01/02/19 08:00 97.9 66 20 138/62 (87) 99 66 01/02/19 04:00 62 01/02/19 03:58 97.5 67 18 127/66 (86) 96 01/02/19 00:00 98.6 61 18 131/71 (91) 97 01/02/19 00:00 64 01/01/19 21:00 Room Air 01/01/19 20:48 63 133/72 01/01/19 20:26 68 16 95 Room Air 21 01/01/19 20:00 63 01/01/19 20:00 98.1 63 18 133/72 (92) 98 01/01/19 16:56 125/68 01/01/19 16:00 98.0 66 22 125/68 (87) 98 01/01/19 16:00 60 01/01/19 12:00 98.3 64 23 105/72 (83) 96 01/01/19 12:00 57 Intake and Output 01/01/19 01/02/19 18:59 06:59 Intake Total 3550 ml Output Total 500 ml 1000 ml Balance 3050 ml -1000 ml Intake Oral 120 ml IV Total 3000 ml Tube Feeding 30 ml Other 400 ml Output Urine Total 500 ml 1000 ml # Bowel Movements 1 Laboratory Tests Test 01/02/19 06:48 White Blood Count 7.8 K/UL (4.8-10.8) Red Blood Count 3.63 M/UL (4.70-6.10) L Hemoglobin 11.0 G/DL (14.2-18.0) L Hematocrit 33.3 % (42.0-52.0) L Mean Corpuscular Volume 92 FL (80-99) Mean Corpuscular Hemoglobin 30.2 PG (27.0-31.0) Mean Corpuscular Hemoglobin Concent 32.9 G/DL (32.0-36.0) Red Cell Distribution Width 11.2 % (11.6-14.8) L Platelet Count 142 K/UL (150-450) L Mean Platelet Volume 8.2 FL (6.5-10.1) Neutrophils (%) (Auto) 60.9 % (45.0-75.0) Lymphocytes (%) (Auto) 23.2 % (20.0-45.0) Monocytes (%) (Auto) 12.5 % (1.0-10.0) H Eosinophils (%) (Auto) 2.6 % (0.0-3.0) Basophils (%) (Auto) 0.9 % (0.0-2.0) Sodium Level 144 MMOL/L (136-145) Potassium Level 4.3 MMOL/L (3.5-5.1) Chloride Level 114 MMOL/L (98-107) H Carbon Dioxide Level 22 MMOL/L (21-32) Anion Gap 8 mmol/L (5-15) Blood Urea Nitrogen 25 mg/dL (7-18) H Creatinine 1.8 MG/DL (0.55-1.30) H Estimat Glomerular Filtration Rate mL/min (>60) Glucose Level 74 MG/DL (74-106) # Calcium Level 8.5 MG/DL (8.5-10.1) Microbiology Date/Time Source Procedure Growth Status 12/31/18 11:10 Blood Blood Culture - Preliminary NO GROWTH AFTER 24 HOURS Resulted 12/31/18 11:00 Blood Blood Culture - Preliminary NO GROWTH AFTER 24 HOURS Resulted Objective HEAD AND NECK: No JVD. LUNGS: Clear. CARDIOVASCULAR: Regular S1 and S2 with no gallop or murmur. ABDOMEN: Soft. EXTREMITIES: No pitting edema. Raymon Mendieta MD Jan 02, 2019 10:09
[2019-01-02] MEDS: Levemir Flexpen SUBQ SCH ×5 (10:14→21:17)
--- NOTE | 2019-01-02 11:11 | NUR ---
P.T Note: P.T evaluation completed and tx initiated. Please refer to P.T evaluation for current functional status. Pt is alert, , O x 4 , pleasant and cooperative. Pt had no c/o pain but reports c/o generalized weakness affecting overall functional mobility performance. Pt currently requires SBA X 1 for bed mobilities and MIN A X 1 fo transfers and gait/ambulation activities using the FWW ( see evaluation gait analysis ). Skilled P.T service is warranted to improve overall strength, balance and endurance to increase mobility independence and safety. Recommend DC to prior living arrangement with continued rehab intervention at [place].
[2019-01-02 12:00] VITALS: BP 119/56
[2019-01-02 16:00] VITALS: BP 121/60
--- NOTE | 2019-01-02 16:00 | General Progress Note ---
Assessment/Plan Problem List: (1) Renal failure ICD Codes: N19 - Unspecified kidney failure SNOMED: 51575736 Qualifiers: Qualified Codes: N17.9 - Acute kidney failure, unspecified (2) Sepsis ICD Codes: A41.9 - Sepsis, unspecified organism SNOMED: 93767012, 403136682, 796235527 Qualifiers: Qualified Codes: A41.9 - Sepsis, unspecified organism (3) Elevated troponin ICD Codes: R74.8 - Abnormal levels of other serum enzymes SNOMED: 264002857, 100404253, 317598894 (4) CAD (coronary artery disease) ICD Codes: I25.10 - Atherosclerotic heart disease of [place] coronary artery without angina pectoris SNOMED: 28084233 (5) CKD (chronic kidney disease) stage 3, GFR 30-59 ml/min ICD Codes: N18.3 - Chronic kidney disease, stage 3 (moderate) SNOMED: 415971945 (6) History of DVT (deep vein thrombosis) ICD Codes: Z86.718 - Personal history of other venous thrombosis and embolism SNOMED: 173825410 (7) History of hyperlipidemia ICD Codes: Z86.39 - Personal history of other endocrine, nutritional and metabolic disease SNOMED: 854166236 (8) History of neuropathy ICD Codes: Z86.69 - Personal history of other diseases of the nervous system and sense organs SNOMED: 576469989, 005040997 (9) History of chronic hypertension ICD Codes: Z86.79 - Personal history of other diseases of the circulatory system SNOMED: 857559110 (10) Diabetes mellitus ICD Codes: E11.9 - Type 2 diabetes mellitus without complications SNOMED: 43023382 Qualifiers: (11) Hyperglycemia ICD Codes: R73.9 - Hyperglycemia, unspecified SNOMED: 81903492 (12) DKA (diabetic ketoacidoses) ICD Codes: E11.10 - Type 2 diabetes mellitus with ketoacidosis without coma SNOMED: 36491089, 200738913 Qualifiers: Qualified Codes: E13.11 - Other specified diabetes mellitus with ketoacidosis with coma (13) Hyperkalemia ICD Codes: E87.5 - Hyperkalemia SNOMED: 29625536 (14) Acute kidney injury superimposed on CKD ICD Codes: N17.9 - Acute kidney failure, unspecified; N18.9 - Chronic kidney disease, unspecified SNOMED: 14202582, 506899875 Status: progressing - improving Assessment/Plan: Status: progressing - improving Assessment/Plan: Silvio Abraham is a 73 yo man with PMH of DMII (diet controlled not on meds) , epilepsy on AED, CKD stage III (baseline creatinine ~1.5), CAD, CVA with residual weakness and dysphagia, hx DVTs, and HTN who presented from [facility] with AMS, found with leukocytosis 15.5, hyperkalemia 7.1, BUN/Cr 96/5.7, ABG 7.16/37/86.5/13.2, BNP 1640, glucose 1501, troponin 0.103, and positive ketones in urine, admitted to medical ICU for DKA, possible PNA, JERMAN on CKD with hyperkalemia, and likely demand NSTEMI. Patient now with resolved DKA. #New dysarthria May be manifestation of prior stroke in the setting of recent infection per discussion with neurology. No acute stroke on MRI. - IMPROVING #Metabolic encephalopathy - Resolved #hx of epilepsy > CT head without acute pathology, chronic small vessel changes, cerebral parenchymal volume loss 2/2 age. EEG: Diffuse encephalopathy. - Patient back to baseline mental status per family - Continue home keppra 500mg BID - Hold home gabapentin 400mg PO BID given AMS and JERMAN - No longer requiring soft wrist restraints, cooperative now - Appreciate Neurology consult: Dr. Diaz to evaluate. RPR and B12/MMA pending. Repeat MRI in one week. Waiting for final recs. #DKA - resolved, hx DMII (not on medications) with hyperglycemia - IMPROVING > Glucose 1501 on admission, AG 20, +ketones in urine ABG 7.169/37/86.5/13.2 on admission - Continue levemir to 35 units QAm and decrease to 5 units QHS - Decrease lispro to 9 units TIDAC given hypoglycemia - Monitor FS ACHS - hgb A1C 12 this admission. Will need insulin on discharge. #JERMAN on CKD (baseline creatinine ~1.5) - Resolved, hyperkalemia in setting of JERMAN and acidemia - resolved, hypokalemia - resolved, metabolic acidosis - resolved, severe hypernatremia - resolved > BUN/Cr 96/5.7 on admission > Likely prerenal 2/2 severe dehydration > EKG with peak T waves on admission > s/p insulin, calcium gluconate, sodium bicarb x1 in ED > Hyperkalemia resolved with insulin with development of subsequent hypokalemia due to shift, now resolved with repletion. > Metabolic acidosis resolved with resolution of DKA - D/C IV fluids today - Free water deficit of 8.8L. Start D5W@ 125cc/hr 12/20/18. Ending 01/01/19. Will need to watch FS closely. Encourage free water intake. - Monitor BMP q8-12hrs. Avoid overcorrection of sodium. - Strict I/Os monitoring #Sepsis / possible PNA - RESOLVING - Possible PNA as trigger for DKA, question aspiration given patient's hx of seizures and dysphagia and RN report of coughing with water on day of admission - CXR with atelectasis vs infiltrate in medial lung basis - Afebrile with leukocytosis 15.5 on admission. - Zosyn 2.25mg IV q8hr renally (12/28- 01/02) Continue Augumentin for 5 more days. End date 01/07/19. - Blood cultures: One bottle positive, aerobic Gram positive cocci in clusters. - S. Homininis. Likely contaminant per ID consult: Dr. De Anda. - Appreciate ID recommendations: Dr. De Anda - surveilance blood cultures negative to date - UA unremarkable for acute infection - Currently satting well on RA - Aspiration precautions # Demand NSTEMI, hx HTN, CAD, DVTs #Systolic heart failure, EF 40%. Compensated. No interventions per cardiology - Troponin 0.103 on admission, without ST EKG changes, likely demand ischemia in setting of JERMAN on CKD and DKA/sepsis - Repeat troponin 0.772 this morning, patient remains asymptomatic, demand ischemia, trend to downtrend - Continue home aspirin 81mg PO daily - Continue home metoprolol 25mg PO BID - Hold home losartan 50mg PO daily given JERMAN - Resume home amlodipine 5mg PO daily and clonidine 0.1mg PO BID as BP rising today - Continue home eliquis, change to renal dose 2.5mg PO BID -Cardiology consult: Dr. Mendieta. #hx dysphagia - Reportedly on mechanical soft thin liquids at SNF - Bedside swallow evaluation then start puree nectar thick diet for now, formal [employer]IVER evaluation - Aspiration precautions, supervision with PO intake - IVF as per above FEN: Puree diet nectar thick liquids bedside urinal for strict I/Os Full Code Telemetry Discussed with RN and Infectious Disease. I spent 37 minutes on this patient's case with >50% on counseling and coordination of care. Subjective Date patient seen: Jan 02, 2019 Constitutional: Denies: chills, diaphoresis, fever, malaise, weakness, other HEENT: Denies: eye pain, blurred vision, tearing, double vision, ear pain, ear discharge, nose pain, nose congestion, throat pain, throat swelling, mouth pain , mouth swelling, other Cardiovascular: Denies: chest pain, edema, irregular heart rate, lightheadedness, palpitations, syncope, other Respiratory: Denies: cough, orthopnea, shortness of breath, SOB with excertion , SOB at rest, sputum, stridor, wheezing, other Gastrointestinal/Abdominal: Denies: abdomen distended, abdominal pain, black stools, tarry stools, blood in stool, constipated, diarrhea, difficulty swallowing, nausea, poor appetite, poor fluid intake, rectal bleeding, vomiting , other Genitourinary: Denies: burning, discharge, frequency, flank pain, hematuria, incontinence, pain, urgency, other Neurologic/Psychiatric: Denies: anxiety, depressed, emotional problems, headache, numbness, paresthesia, pre-existing deficit, seizure, tingling, tremors, weakness, other Endocrine: Denies: excessive sweating, flushing, intolerance to cold, intolerance to heat, increased hunger, increased thirst, increased urine, unexplained weight gain, unexplained weight loss, other Hematologic/Lymphatic: Denies: anemia, easy bleeding, easy bruising, other Allergies: Coded Allergies: CODEINE (Unverified Allergy, Unknown, 10/16/18) Subjective No acute events overnight. PNA: Breathing is back to baseline. Afebrile, denies cough. Vitals stable. DM2: Blood sugars improved. FBS on the lower side 74, but asymptomatic. No other hypoglycemic events Slurred/delayed speech: Since hospitalization. Has improved since yesterday. MRI negative for acute stroke. No dysphagia, numbness/tingling. Constant. Per patient this still has not improved. Objective Last 24 Hour Vital Signs Date Time Temp Pulse Resp B/P (MAP) Pulse Ox O2 Delivery O2 Flow Rate FiO2 01/02/19 12:00 98.2 61 22 119/56 (77) 98 61 01/02/19 12:00 62 01/02/19 09:52 66 138/62 01/02/19 09:51 66 138/62 01/02/19 09:51 138/62 01/02/19 09:15 65 18 99 Room Air 21 01/02/19 09:00 Room Air 01/02/19 08:00 97.9 66 20 138/62 (87) 99 66 01/02/19 08:00 63 01/02/19 04:00 62 01/02/19 03:58 97.5 67 18 127/66 (86) 96 01/02/19 00:00 98.6 61 18 131/71 (91) 97 01/02/19 00:00 64 01/01/19 21:00 Room Air 01/01/19 20:48 63 133/72 01/01/19 20:26 68 16 95 Room Air 21 01/01/19 20:00 63 01/01/19 20:00 98.1 63 18 133/72 (92) 98 01/01/19 16:56 125/68 01/01/19 16:00 98.0 66 22 125/68 (87) 98 01/01/19 16:00 60 Intake and Output 01/01/19 01/02/19 19:00 07:00 Intake Total 3550 ml Output Total 500 ml 1000 ml Balance 3050 ml -1000 ml Intake Oral 120 ml IV Total 3000 ml Tube Feeding 30 ml Other 400 ml Output Urine Total 500 ml 1000 ml # Bowel Movements 1 Laboratory Tests 01/02/19 06:48: White Blood Count 7.8, Red Blood Count 3.63L, Hemoglobin 11.0L, Hematocrit 33.3L , Mean Corpuscular Volume 92, Mean Corpuscular Hemoglobin 30.2, Mean Corpuscular Hemoglobin Concent 32.9, Red Cell Distribution Width 11.2L, Platelet Count 142L, Mean Platelet Volume 8.2, Neutrophils (%) (Auto) 60.9, Lymphocytes (%) (Auto) 23.2, Monocytes (%) (Auto) 12.5H, Eosinophils (%) (Auto) 2.6, Basophils (%) (Auto) 0.9, Sodium Level 144, Potassium Level 4.3, Chloride Level 114H, Carbon Dioxide Level 22, Anion Gap 8, Blood Urea Nitrogen 25H, Creatinine 1.8H, Estimat Glomerular Filtration Rate , Glucose Level 74#, Calcium Level 8.5 Height (Feet): 5 Height (Inches): 8.00 Weight (Pounds): 220 General Appearance: WD/WN, no apparent distress, alert EENT: PERRL/EOMI, normal ENT inspection Neck: non-tender, normal alignment, supple Cardiovascular: normal peripheral pulses, normal rate, regular rhythm, no JVD Respiratory/Chest: lungs clear, normal breath sounds Abdomen: normal bowel sounds, non tender, soft Extremities: normal range of motion, other - no LE edema bilatearlly Neurologic: patient scheduling 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 Jan 02, 2019 16:00
--- NOTE | 2019-01-02 16:45 | NUR ---
HAND-OFF: Report given to .MIN RN
--- NOTE | 2019-01-02 19:07 | NUR ---
HAND-OFF: Report given to Raman RN. Pt remains stable.
--- NOTE | 2019-01-02 19:35 | NUR ---
NURSE NOTES: Received patient from Min RN. Patient is awake and oriented x3. Receiving oxygen via room air, patient showing no signs of respiratory distress. IV site is right AC 20g patent and asymptomatic. Bed is locked, placed in lowest position, side rails x3, call light within reach, bed alarm on, head of bed elevated. Will continue to monitor.
[2019-01-02 20:00] VITALS: BP 106/74
[2019-01-03] VITALS: BP 124/63
[2019-01-03 04:00] VITALS: BP 112/71
[2019-01-03] MEDS: NovoLOG Insulin Flexpen SUBQ SCH ×7 (06:33→21:00)
[2019-01-03 07:10] LABS: BASOPHILS % (AUTO) 0.8 % (0.0-2.0); EOSINOPHILS % (AUTO) 2.4 % (0.0-3.0); HEMATOCRIT 30.3 % (42.0-52.0); LYMPHOCYTES % (AUTO) 23.4 % (20.0-45.0); MEAN CORPUSCULAR VOLUME 93 FL (80-99); MONOCYTES % (AUTO) 15.3 % (1.0-10.0); NEUTROPHILS % (AUTO) 58.1 % (45.0-75.0); PLATELET COUNT 170 K/UL (150-450); RED BLOOD COUNT 3.27 M/UL (4.70-6.10); RED CELL DISTRIBUTION WIDTH 11.2 % (11.6-14.8); WHITE BLOOD COUNT 8.6 K/UL (4.8-10.8)
--- NOTE | 2019-01-03 07:16 | NUR ---
NURSE NOTES: pt awake in bed about to have breakfast. Pt on electronic device monitor no signs of cardiac or respiratory distress at this time. pt. is in room air. AOx3, Iv site L FA 22g TKO 10ml/hr. Bed is locked and in lowest position. Call light is within reach. Will continue plan of care and monitor pt.
[2019-01-03 07:26] LABS: ANION GAP 8 mmol/L (5-15); BLOOD UREA NITROGEN 29 mg/dL (7-18); CALCIUM 8.5 MG/DL (8.5-10.1); CARBON DIOXIDE 22 MMOL/L (21-32); CHLORIDE 112 MMOL/L (98-107); CREATININE 1.8 MG/DL (0.55-1.30); POTASSIUM 4.4 MMOL/L (3.5-5.1); SODIUM 142 MMOL/L (136-145)
--- NOTE | 2019-01-03 07:52 | NUR ---
HAND-OFF: Report given to Awa HAYNES. Patient in stable condition.
[2019-01-03 08:00] VITALS: BP 123/70
--- NOTE | 2019-01-03 08:40 | Pulmonology Progress Note ---
Assessment/Plan Problems: (1) DKA (diabetic ketoacidoses) (2) Acute kidney injury superimposed on CKD (3) Metabolic encephalopathy (4) Seizure (5) Hyperglycemia (6) Acidemia (7) History of chronic hypertension (8) Diabetes mellitus (9) History of hyperlipidemia (10) History of neuropathy (11) History of DVT (deep vein thrombosis) (12) CAD (coronary artery disease) (13) Elevated troponin (14) Sepsis Assessment/Plan Optimize pulmonary hygiene/mobilize as tolerated PRN O2 PRN HHN's Abx (PO Augmentin) per ID Monitor volumes and renal function Diet per GETTER OPERATOR with STRICT aspiration precautions DVT Px: Eliquis Monitor MS, F/U neuro recs FC, continue to discuss GOC Stable from a pulmonary standpoint, will sign off and follow peripherally, please call with any questions or change in condition. Subjective Allergies: Coded Allergies: CODEINE (Unverified Allergy, Unknown, 10/16/18) Subjective AFVSS on RA No cough, no SOB, no CP, no FC Objective Last 24 Hour Vital Signs Date Time Temp Pulse Resp B/P (MAP) Pulse Ox O2 Delivery O2 Flow Rate FiO2 01/03/19 04:00 98.7 60 18 112/71 (85) 99 60 01/03/19 03:53 58 01/03/19 00:00 99.1 63 18 124/63 (83) 96 63 01/02/19 23:41 56 01/02/19 21:14 67 106/74 01/02/19 21:00 Room Air 01/02/19 20:00 98.2 67 18 106/74 (85) 97 67 01/02/19 19:53 61 01/02/19 17:29 121/60 01/02/19 16:00 98.0 57 21 121/60 (80) 95 57 01/02/19 16:00 64 01/02/19 12:00 98.2 61 22 119/56 (77) 98 61 01/02/19 12:00 62 01/02/19 09:52 66 138/62 01/02/19 09:51 66 138/62 01/02/19 09:51 138/62 01/02/19 09:15 65 18 99 Room Air 21 01/02/19 09:00 Room Air Intake and Output 01/02/19 01/03/19 19:00 07:00 Intake Total 1240 ml Balance 1240 ml Intake Oral 1240 ml # Voids 2 General Appearance: no acute distress, cachetic, other - dysarthric HEENT: normocephalic, atraumatic, anicteric, mucous membranes moist Respiratory/Chest: chest wall non-tender, lungs clear, normal breath sounds, no respiratory distress, no accessory muscle use Cardiovascular: normal peripheral pulses, normal rate, regular rhythm Abdomen: normal bowel sounds, soft, non tender, no organomegaly, non distended , no mass Extremities: no cyanosis, no clubbing, no edema Microbiology Date/Time Source Procedure Growth Status 12/31/18 11:10 Blood Blood Culture - Preliminary NO GROWTH AFTER 48 HOURS Resulted 12/31/18 11:00 Blood Blood Culture - Preliminary NO GROWTH AFTER 48 HOURS Resulted Laboratory Tests 01/03/19 06:28: White Blood Count 8.6, Red Blood Count 3.27L, Hemoglobin 10.0L, Hematocrit 30.3L , Mean Corpuscular Volume 93, Mean Corpuscular Hemoglobin 30.6, Mean Corpuscular Hemoglobin Concent 33.1, Red Cell Distribution Width 11.2L, Platelet Count 170, Mean Platelet Volume 8.7, Neutrophils (%) (Auto) 58.1, Lymphocytes (%) (Auto) 23.4, Monocytes (%) (Auto) 15.3H, Eosinophils (%) (Auto) 2.4, Basophils (%) (Auto) 0.8, Sodium Level 142, Potassium Level 4.4, Chloride Level 112H, Carbon Dioxide Level 22, Anion Gap 8, Blood Urea Nitrogen 29H, Creatinine 1.8H, Estimat Glomerular Filtration Rate , Glucose Level 114H, Calcium Level 8.5 Current Medications Medications (Trade) Dose Ordered Sig/Sheeba Route PRN Reason Start Time Stop Time Status Last Admin Dose Admin Acetaminophen (Tylenol) 650 mg Q6HR PRN ORAL pain or fever T>101 12/29/18 18:30 01/28/19 18:29 Albuterol/ Ipratropium (Albuterol/ Ipratropium) 3 ml Q4H PRN HHN Shortness of Breath 12/30/18 17:00 01/04/19 16:59 Amlodipine Besylate (Norvasc) 5 mg DAILY ORAL 12/30/18 09:00 01/28/19 10:44 01/02/19 09:52 Amoxicillin/ Clavulanate Potassium (Augmentin) 500 mg Q12HR ORAL 01/01/19 21:00 01/08/19 20:59 01/02/19 21:14 Apixaban (Eliquis) 2.5 mg BID ORAL 12/30/18 09:00 01/27/19 10:44 01/02/19 17:30 Aspirin (ASA) 81 mg DAILY ORAL 12/30/18 09:00 01/28/19 08:59 01/02/19 09:51 Clonidine HCl (Catapres Tab) 0.1 mg BID ORAL 12/30/18 09:00 01/28/19 10:44 01/02/19 17:29 Dextrose (Dextrose 50%) 25 ml Q30M PRN IV Hypoglycemia 12/29/18 18:15 01/27/19 09:44 Dextrose (Dextrose 50%) 50 ml Q30M PRN IV Hypoglycemia 12/29/18 18:15 01/27/19 09:44 Docusate Sodium (Colace) 100 mg TID ORAL 12/31/18 09:00 01/29/19 17:59 01/02/19 17:29 Insulin Aspart (NovoLOG) BEFORE MEALS AND HS SUBQ 12/29/18 21:00 01/28/19 11:29 01/03/19 06:34 Insulin Aspart (NovoLOG) 9 units NOVOTIAC SUBQ 01/02/19 11:50 01/28/19 11:49 01/03/19 06:33 Insulin Detemir (Levemir) 5 units BEDTIME SUBQ 01/02/19 21:00 01/29/19 20:59 01/02/19 21:17 Insulin Detemir (Levemir) 35 units DAILY SUBQ 01/01/19 09:00 01/28/19 10:29 01/02/19 10:52 Levetiracetam 100 ml @ 400 mls/hr Q12HR IVPB 12/29/18 21:00 01/27/19 10:29 01/02/19 21:14 Metoprolol Tartrate (Lopressor) 25 mg Q12HR ORAL 12/29/18 21:00 01/27/19 20:59 01/02/19 21:14 Pantoprazole (Protonix) 40 mg ACBREAKFAST ORAL 01/03/19 06:30 02/02/19 06:29 01/03/19 06:31 Sennosides (Senokot) 8.6 mg DAILY PRN ORAL Constipation 12/30/18 10:15 01/29/19 10:14 12/30/18 12:51 Marcelino Strickland MD Jan 03, 2019 08:40
[2019-01-03] MEDS: Eliquis 2.5mg tablet ORAL SCH ×2 (09:54→18:09)
[2019-01-03] MEDS: Metoprolol 25mg tab ORAL SCH (09:56)
[2019-01-03] MEDS: Docusate 100mg cap ORAL SCH ×3 (09:56→18:09)
[2019-01-03] MEDS: Aspirin Baby 81mg ORAL SCH (09:56)
[2019-01-03] MEDS: levETIRAcetam 500mg/NS100ml 100 ML IVPB SCH ×2 (09:57→10:23)
--- NOTE | 2019-01-03 10:03 | NUR ---
CASE MANAGEMENT:REVIEW 01/03/19 SI: SEPSIS. DKA. ACUTE RENAL FAILURE. ELEVATED TROPONIN 98.6 64 22 123/70 97% ON RA H/H-10.0/30.3 BUN+29 CR+1.8 IS: LEVEMIR SQ QHS NOVOLOG SQ TID AMOXICILLIN PO Q12 NORVASC PO QD ELIQUIS PO BID ASA PO QD : TELEMETRY [facility]US [facility]
--- NOTE | 2019-01-03 10:05 | Cardiac Electrophysiology PN ---
Assessment/Plan Assessment/Plan 1. Brg-DG-irjbjegly myocardial infarction, type 2 due to renal failure and dehydration. His BUN was 72 and creatinine was 3.9 and his sodium was 165 on admission. The patient currently does not have any chest pain. Continue medical therapy with aspirin, beta-reva and statin. Not a candidate for coronary intervention in view of renal failure and no CP. Treat the patient medically at this time. 2. CHF with EF 40%. Add Lasix 40 mg po daily. Change Metoprolol to Coreg 6.25 bid. Change amlodipine to Hydralazine and isordil Avoid ACEI and ARB for renal failure. 3. Hypertension. DC amlodipine and clonidine Coreg, Lasix, Hyralazine and imdur 4. Atrial fib , in SR on Coreg and Eliquis 5. Positive blood cultures on iv Abx 6. Uncontrolled diabetes, on insulin. 7. Seizures. 8. Altered mental status. Further evaluation by Neurology. 9. DVT on Eliquis DW RN Subjective Subjective Alert in NAD with no CP or SOB. In SR with PACs. RN at bedside Objective Last 24 Hour Vital Signs Date Time Temp Pulse Resp B/P (MAP) Pulse Ox O2 Delivery O2 Flow Rate FiO2 01/03/19 09:56 64 123/70 01/03/19 09:56 64 123/70 01/03/19 09:54 123/70 01/03/19 08:00 98.6 64 22 123/70 (87) 97 64 01/03/19 04:00 98.7 60 18 112/71 (85) 99 60 01/03/19 03:53 58 01/03/19 00:00 99.1 63 18 124/63 (83) 96 63 01/02/19 23:41 56 01/02/19 21:14 67 106/74 01/02/19 21:00 Room Air 01/02/19 20:00 98.2 67 18 106/74 (85) 97 67 01/02/19 19:53 61 01/02/19 17:29 121/60 01/02/19 16:00 98.0 57 21 121/60 (80) 95 57 01/02/19 16:00 64 01/02/19 12:00 98.2 61 22 119/56 (77) 98 61 01/02/19 12:00 62 Intake and Output 01/02/19 01/03/19 19:00 07:00 Intake Total 1240 ml Balance 1240 ml Intake Oral 1240 ml # Voids 2 Laboratory Tests Test 01/03/19 06:28 White Blood Count 8.6 K/UL (4.8-10.8) Red Blood Count 3.27 M/UL (4.70-6.10) L Hemoglobin 10.0 G/DL (14.2-18.0) L Hematocrit 30.3 % (42.0-52.0) L Mean Corpuscular Volume 93 FL (80-99) Mean Corpuscular Hemoglobin 30.6 PG (27.0-31.0) Mean Corpuscular Hemoglobin Concent 33.1 G/DL (32.0-36.0) Red Cell Distribution Width 11.2 % (11.6-14.8) L Platelet Count 170 K/UL (150-450) Mean Platelet Volume 8.7 FL (6.5-10.1) Neutrophils (%) (Auto) 58.1 % (45.0-75.0) Lymphocytes (%) (Auto) 23.4 % (20.0-45.0) Monocytes (%) (Auto) 15.3 % (1.0-10.0) H Eosinophils (%) (Auto) 2.4 % (0.0-3.0) Basophils (%) (Auto) 0.8 % (0.0-2.0) Sodium Level 142 MMOL/L (136-145) Potassium Level 4.4 MMOL/L (3.5-5.1) Chloride Level 112 MMOL/L (98-107) H Carbon Dioxide Level 22 MMOL/L (21-32) Anion Gap 8 mmol/L (5-15) Blood Urea Nitrogen 29 mg/dL (7-18) H Creatinine 1.8 MG/DL (0.55-1.30) H Estimat Glomerular Filtration Rate mL/min (>60) Glucose Level 114 MG/DL (74-106) H Calcium Level 8.5 MG/DL (8.5-10.1) Microbiology Date/Time Source Procedure Growth Status 12/31/18 11:10 Blood Blood Culture - Preliminary NO GROWTH AFTER 48 HOURS Resulted 12/31/18 11:00 Blood Blood Culture - Preliminary NO GROWTH AFTER 48 HOURS Resulted Objective HEAD AND NECK: No JVD. LUNGS: Clear. CARDIOVASCULAR: Regular S1 and S2 with no gallop or murmur. ABDOMEN: Soft. EXTREMITIES: No pitting edema. Raymon Mendieta MD Jan 03, 2019 10:05
--- NOTE | 2019-01-03 10:07 | NUR ---
DISCHARGE PLANNING FAXED CLINICALS TO [facility] T: [phone] AWAIT ASSIGNED ROOM NUMBER AND OFFICIAL DISCHARGE ORDER FROM DR GERARDO
[2019-01-03] MEDS: Levemir Flexpen SUBQ SCH ×3 (10:32→21:00)
[2019-01-03 12:00] VITALS: BP 121/76
[2019-01-03] MEDS ORDERED: APRESOLINE10 MG ORAL (14:24)
[2019-01-03] MEDS ORDERED: AMOX TR-K CLV1 EAC1 ORAL (14:24)
[2019-01-03] MEDS ORDERED: COREG6.25 MG ORAL (14:24)
[2019-01-03] MEDS ORDERED: FUROSEMIDE40 MG ORAL (14:24)
[2019-01-03] MEDS ORDERED: ISOSORBIDE MONO30 M1 ORAL (14:24)
[2019-01-03] MEDS ORDERED: DUONEB 0.5-3(2.53 ML HHN (14:24)
[2019-01-03] MEDS ORDERED: NOVOLOG100 UNITS1 SUBQ (14:24)
[2019-01-03] MEDS ORDERED: LEVEMIR FL100 UNIT/1 SUBQ ×2 (14:24)
--- NOTE | 2019-01-03 14:26 | Discharge Instructions ---
Discharge Instructions Discharge Instructions Follow up with: cardiology Diet: 2 GM sodium (low sodium), diabetic calorie control Resume Normal Activity?: Yes Activity: as tolerated Follow Up Orders Follow up on RPR/FTA- ABS, B12 and MMA Holding SHAMAR-I because of renal failure. Repeat BMP in one week and start SHAMAR-I if stabilized Needs f/u with Cardiology, new diagnosis of systolic heart failure For Congestive Heart Failure Reminder Report to your physician any weight gain of 5 pounds or more in one week. Cordell Leiva D.O. Jan 03, 2019 14:26
--- NOTE | 2019-01-03 14:28 | Discharge Instructions ---
Discharge Instructions Discharge Instructions Follow up with: cardiology Diet: 2 GM sodium (low sodium), diabetic calorie control Additional Diet Information: MECH SOFT FINELY CHOPPED AND CONTINUE WITH NECTAR THICK LIQUIDS Activity: as tolerated For Congestive Heart Failure Reminder Report to your physician any weight gain of 5 pounds or more in one week. Cordell Leiva D.O. Jan 03, 2019 14:28
--- NOTE | 2019-01-03 15:00 | NUR ---
SPEECH PATHOLOGY/SWALLOW STATUS PATIENT CLEARED FOR ST INTERVENTION BY [place] ABAD. PATIENT CONTINUES WITH PATTERN OF SUBOPTIMAL P.O. INTAKE DESPITE THE DIET TEXTURE BEING ADVANCED TO MECHANICAL SOFT/CHOPPED. HE IS TOLERATING THE THICKENED LIQUIDS AND ALL LIQUIDS WERE CONSUMED FROM HIS NOON MEAL. HE REFUSED THE SOLIDS DURING THIS MEAL. D/W RN POSSIBILITY OF HIGH [place] MEALTIME SUPPLEMENTS TO OFFSET LACK OF CALORIC INTAKE CONTINUE PER PLAN.
--- NOTE | 2019-01-03 15:08 | NUR ---
DISCHARGE PLANNING DISCHARGE ORDER NOTED Patient has been accepted to; [facility] [address] [place] [address] Bed: 54-C Skilled [phone] for Nurse to Nurse report [facility] ETA for transportation: 17:45
[2019-01-03 16:00] VITALS: BP 122/68
[2019-01-03] MEDS ORDERED: HydrALAZINE 10mg Tab ORAL SCH (18:00)
--- NOTE | 2019-01-03 19:39 | NUR ---
HAND-OFF: Report given to Marcellus/rn pt will be DC today, IV and monitor still need to be taken off from Pt. nurse is aware.
--- NOTE | 2019-01-03 19:46 | Infectious Diseases Prog Note ---
Assessment/Plan Assessment/Plan ASSESSMENT/PLAN: 1. possible aspiration pna, sepsis, leukocytosis, ams, slurred speech - augmentin x 3 days - discontinue zosyn - monitor labs - chest x-ray improved - leukocytosis resolved - clinically stable 2. Acute kidney injury and elevated creatinine. 3. Chronic kidney disease. 4. Anemia. 5. Hypernatremia. 6. Hypertension. 7. Diabetes. 8. Blood sugar and blood pressure treatment per primary for diabetes and hypertension. 9. CAD. 10. CVA. 11. Weakness. 12. Dysphagia. 13. Epilepsy. 14. CAD and chronic kidney disease treatment per primary. 15. Continue treatment per primary consultants. 16. He is allergic to codeine. 17. Social history is negative. 18. Family history is noncontributory. 19. MAR was noted. 20. Case was discussed with RN. 21. He has a Severino in. 22. Skin care per protocol. 23. Notes and records were noted. Orders were entered. Subjective Constitutional: Denies: fever HEENT: Denies: congestion Respiratory: Denies: shortness of breath Cardiovascular: Denies: chest pain Gastrointestinal/Abdominal: Denies: nausea, vomiting, diarrhea Genitourinary: Reports: other - + severino Neurologic: Denies: headache Psychiatric: Denies: depression Skin: Denies: rash Hematologic: Denies: bleeding Musculoskeletal: Denies: pain Allergies: Coded Allergies: CODEINE (Unverified Allergy, Unknown, 10/16/18) Objective Vital Signs Last 24 Hour Vital Signs Date Time Temp Pulse Resp B/P (MAP) Pulse Ox O2 Delivery O2 Flow Rate FiO2 01/03/19 19:07 65 18 99 Room Air 21 01/03/19 18:09 122/68 01/03/19 16:00 62 01/03/19 16:00 98.2 66 20 122/68 (86) 97 66 01/03/19 12:00 98.2 68 18 121/76 (91) 96 64 01/03/19 12:00 63 01/03/19 11:59 62 18 99 Room Air 21 01/03/19 09:56 64 123/70 01/03/19 09:56 64 123/70 01/03/19 09:54 123/70 01/03/19 09:00 Room Air 01/03/19 08:00 98.6 64 22 123/70 (87) 97 64 01/03/19 08:00 60 01/03/19 04:00 98.7 60 18 112/71 (85) 99 60 01/03/19 03:53 58 01/03/19 00:00 99.1 63 18 124/63 (83) 96 63 01/02/19 23:41 56 01/02/19 21:14 67 106/74 01/02/19 21:00 Room Air 01/02/19 20:00 98.2 67 18 106/74 (85) 97 67 01/02/19 19:53 61 Height (Feet): 5 Height (Inches): 8.00 Weight (Pounds): 220 General Appearance: no acute distress HEENT: normocephalic, atraumatic, anicteric, mucous membranes moist Respiratory/Chest: lungs clear, normal breath sounds, no respiratory distress, no accessory muscle use Cardiovascular: normal rate, regular rhythm, no gallop/murmur, no JVD Abdomen: normal bowel sounds, soft, non tender, no organomegaly, non distended Genitourinary: other - + severino - urine slt cloudy Extremities: no cyanosis Skin: no rash Neurologic/Psychiatric: rn medical inpatient services II-XII grossly normal, alert, oriented x 3, responsive Lymphatic: no neck adenopathy Musculoskeletal: no effusion Objective Chest x-ray - 12/28/18 - FINDINGS: Lungs: Subsegmental atelectasis versus infiltrates in the medial lung bases. The lungs otherwise appear clear. Pleural space: Unremarkable. The costophrenic angles are sharp. No visible pneumothorax. Heart: Unremarkable. No cardiomegaly. Mediastinum: Unremarkable. Bones joints: Unremarkable. Tubes, lines and devices: Telemetry leads overlie the thorax. IMPRESSION: Subsegmental atelectasis versus infiltrates in the medial lung bases. Chest x-ray - 12/31/18 - NAD, report noted Microbiology Date/Time Source Procedure Growth Status 12/31/18 11:10 Blood Blood Culture - Preliminary NO GROWTH AFTER 48 HOURS Resulted 12/28/18 07:00 Nasal Nares MRSA Culture - Final NO METHICILLIN RESISTANT STAPH AUREUS... Complete 12/28/18 07:00 Rectum VRE Culture - Final NO VANCOMYCIN RESISTANT ENTEROCOCCUS ... Complete Laboratory Tests Test 01/03/19 06:28 White Blood Count 8.6 K/UL (4.8-10.8) Red Blood Count 3.27 M/UL (4.70-6.10) L Hemoglobin 10.0 G/DL (14.2-18.0) L Hematocrit 30.3 % (42.0-52.0) L Mean Corpuscular Volume 93 FL (80-99) Mean Corpuscular Hemoglobin 30.6 PG (27.0-31.0) Mean Corpuscular Hemoglobin Concent 33.1 G/DL (32.0-36.0) Red Cell Distribution Width 11.2 % (11.6-14.8) L Platelet Count 170 K/UL (150-450) Mean Platelet Volume 8.7 FL (6.5-10.1) Neutrophils (%) (Auto) 58.1 % (45.0-75.0) Lymphocytes (%) (Auto) 23.4 % (20.0-45.0) Monocytes (%) (Auto) 15.3 % (1.0-10.0) H Eosinophils (%) (Auto) 2.4 % (0.0-3.0) Basophils (%) (Auto) 0.8 % (0.0-2.0) Sodium Level 142 MMOL/L (136-145) Potassium Level 4.4 MMOL/L (3.5-5.1) Chloride Level 112 MMOL/L (98-107) H Carbon Dioxide Level 22 MMOL/L (21-32) Anion Gap 8 mmol/L (5-15) Blood Urea Nitrogen 29 mg/dL (7-18) H Creatinine 1.8 MG/DL (0.55-1.30) H Estimat Glomerular Filtration Rate mL/min (>60) Glucose Level 114 MG/DL (74-106) H Calcium Level 8.5 MG/DL (8.5-10.1) Current Medications Medications (Trade) Dose Ordered Sig/Sheeba Route PRN Reason Start Time Stop Time Status Last Admin Dose Admin Acetaminophen (Tylenol) 650 mg Q6HR PRN ORAL pain or fever T>101 12/29/18 18:30 01/28/19 18:29 Albuterol/ Ipratropium (Albuterol/ Ipratropium) 3 ml Q4H PRN HHN Shortness of Breath 12/30/18 17:00 01/04/19 16:59 Amoxicillin/ Clavulanate Potassium (Augmentin) 500 mg Q12HR ORAL 01/01/19 21:00 01/06/19 22:00 01/03/19 09:53 Apixaban (Eliquis) 2.5 mg BID ORAL 12/30/18 09:00 01/27/19 10:44 01/03/19 18:09 Aspirin (ASA) 81 mg DAILY ORAL 12/30/18 09:00 01/28/19 08:59 01/03/19 09:56 Carvedilol (Coreg) 6.25 mg EVERY 12 HOURS ORAL 01/03/19 21:00 02/02/19 20:59 Dextrose (Dextrose 50%) 25 ml Q30M PRN IV Hypoglycemia 12/29/18 18:15 01/27/19 09:44 Dextrose (Dextrose 50%) 50 ml Q30M PRN IV Hypoglycemia 12/29/18 18:15 01/27/19 09:44 Docusate Sodium (Colace) 100 mg TID ORAL 12/31/18 09:00 01/29/19 17:59 01/03/19 18:09 Furosemide (Lasix) 40 mg DAILY ORAL 01/04/19 09:00 02/03/19 08:59 Hydralazine HCl (Apresoline) 10 mg BID ORAL 01/03/19 18:00 02/02/19 17:59 01/03/19 18:09 Insulin Aspart (NovoLOG) BEFORE MEALS AND HS SUBQ 12/29/18 21:00 01/28/19 11:29 01/03/19 18:30 Insulin Aspart (NovoLOG) 9 units NOVOTIAC SUBQ 01/02/19 11:50 01/28/19 11:49 01/03/19 18:30 Insulin Detemir (Levemir) 5 units BEDTIME SUBQ 01/02/19 21:00 01/29/19 20:59 01/02/19 21:17 Insulin Detemir (Levemir) 35 units DAILY SUBQ 01/01/19 09:00 01/28/19 10:29 01/03/19 10:34 Isosorbide Mononitrate (Imdur) 30 mg DAILY ORAL 01/04/19 09:00 02/03/19 08:59 Levetiracetam (Keppra) 500 mg Q12HR ORAL 01/03/19 10:30 02/02/19 10:29 01/03/19 10:32 Pantoprazole (Protonix) 40 mg ACBREAKFAST ORAL 01/03/19 06:30 02/02/19 06:29 01/03/19 06:31 Sennosides (Senokot) 8.6 mg DAILY PRN ORAL Constipation 12/30/18 10:15 01/29/19 10:14 12/30/18 12:51 Dung Riley MD Jan 03, 2019 19:46
[2019-01-03 21:00] VITALS: BP 137/63
[2019-01-03] MEDS ORDERED: Carvedilol 6.25mg Tab ORAL SCH (21:00)
--- NOTE | 2019-01-03 22:08 | Discharge Summary ---
Discharge Summary Hospital Course Date of Admission Dec 28, 2018 at 11:26 Date of Discharge Admitting Diagnosis AMS,DKA HPI Silvio Abraham Jr is a 73 year old male who was admitted on Dec 28, 2018 at 11:26 for Altered Metal Status,Diabetes Mellitus With DKA, sepsis, acute renal failure. Consultations Infectious Disease Pulmonology Cardiology Hospital Course Status: progressing - improving Assessment/Plan: Silvio Abraham is a 73 yo man with PMH of DMII (diet controlled not on meds) , epilepsy on AED, CKD stage III (baseline creatinine ~1.5), CAD, CVA with residual weakness and dysphagia, hx DVTs, and HTN who presented from [facility] with AMS, found with leukocytosis 15.5, hyperkalemia 7.1, BUN/Cr 96/5.7, ABG 7.16/37/86.5/13.2, BNP 1640, glucose 1501, troponin 0.103, and positive ketones in urine, admitted to medical ICU for DKA, sepsis 2/2 PNA, JERMAN on CKD with hyperkalemia, hypernatremia 2/2 severe dehydration, and likely demand NSTEMI. Patient's DKA resolved with insulin and IV fluids. He was given IV fluids and hypernatremia and JERMAN resolved. Hyperkalemia improved with insulin therapy. CXR showed possible pneumonia and the patient was treated with antibiotics for an aspiration pneumonia. He is to continue with Augmentin for 5 more days to complete a total of 10 days. Given the patient's risk factors and elevated troponin Cardiology was consulted who believed the troponemia 2/2 type 2 NSTEMI from demand ischemia. No further workup needed. An echocardiogram was performed which showed a new diagnosis of Systolic heart failure with an EF of 40%. Cardiology recommended, lasix, hydralazine, isordil, and switch of metoprolol to Coreg. Marcos-I was held due to recent acute renal failure. Should be initiated as outpatient and patient needs f/u with cardiology. Despite the resolution of the above acute problems the patient continued to have dysarthria. He had no other focal signs. An MRI was ordered which was negative for an acute stroke. Neurology was consulted and recommended to check B12/MMA and RPR/FTA-ABs which is still pending. No further inpatient workup needed. Dysarthria believed to be the old stroke which re-surfaced given the patient's acute illnesses. It was improving on discharge. The recommendation was to repeat the MRI in one week. On discharge the patient was hemodynamically stable. His blood sugars were better controlled and his mental status back to baseline. He was discharged back to his SNF for continued PT/OT. #New dysarthria May be manifestation of prior stroke in the setting of recent infection per discussion with neurology. No acute stroke on MRI. - IMPROVING #Metabolic encephalopathy - Resolved #hx of epilepsy > CT head without acute pathology, chronic small vessel changes, cerebral parenchymal volume loss 2/2 age. EEG: Diffuse encephalopathy. - Patient back to baseline mental status per family - Continue home keppra 500mg BID - Hold home gabapentin 400mg PO BID given AMS and JERMAN - No longer requiring soft wrist restraints, cooperative now - Appreciate Neurology consult: Dr. Diaz to evaluate. RPR and B12/MMA pending. Repeat MRI in one week. Waiting for final recs. #DKA - resolved, hx DMII (not on medications) with hyperglycemia - IMPROVING > Glucose 1501 on admission, AG 20, +ketones in urine ABG 7.169/37/86.5/13.2 on admission - Continue levemir to 35 units QAm and decrease to 5 units QHS - Decrease lispro to 9 units TIDAC given hypoglycemia - Monitor FS ACHS - hgb A1C 12 this admission. Will need insulin on discharge. #JERMAN on CKD (baseline creatinine ~1.5) - Resolved, hyperkalemia in setting of JERMAN and acidemia - resolved, hypokalemia - resolved, metabolic acidosis - resolved, severe hypernatremia - resolved > BUN/Cr 96/5.7 on admission > Likely prerenal 2/2 severe dehydration > EKG with peak T waves on admission > s/p insulin, calcium gluconate, sodium bicarb x1 in ED > Hyperkalemia resolved with insulin with development of subsequent hypokalemia due to shift, now resolved with repletion. > Metabolic acidosis resolved with resolution of DKA - D/C IV fluids today - Free water deficit of 8.8L. Start D5W@ 125cc/hr 12/20/18. Ending 01/01/19. Will need to watch FS closely. Encourage free water intake. - Monitor BMP q8-12hrs. Avoid overcorrection of sodium. - Strict I/Os monitoring #Sepsis 2/2 possible PNA - RESOLVING - Possible PNA as trigger for DKA, question aspiration given patient's hx of seizures and dysphagia and RN report of coughing with water on day of admission - CXR with atelectasis vs infiltrate in medial lung basis - Afebrile with leukocytosis 15.5 on admission. - Zosyn 2.25mg IV q8hr renally (12/28- 01/02) Continue Augumentin for 5 more days. End date 01/07/19. - Blood cultures: One bottle positive, aerobic Gram positive cocci in clusters. - S. Homininis. Likely contaminant per ID consult: Dr. De Anda. - Appreciate ID recommendations: Dr. De Anda - surveilance blood cultures negative to date - UA unremarkable for acute infection - Currently satting well on RA - Aspiration precautions # Demand NSTEMI, hx HTN, CAD, DVTs #Systolic heart failure, EF 40%. Compensated. No interventions per cardiology - Troponin 0.103 on admission, without ST EKG changes, likely demand ischemia in setting of JERMAN on CKD and DKA/sepsis - Repeat troponin 0.772 this morning, patient remains asymptomatic, demand ischemia, trend to downtrend - Continue home aspirin 81mg PO daily - Continue home metoprolol 25mg PO BID - Hold home losartan 50mg PO daily given JERMAN - Resume home amlodipine 5mg PO daily and clonidine 0.1mg PO BID as BP rising today - Continue home eliquis, change to renal dose 2.5mg PO BID -Cardiology consult: Dr. Mendieta. #hx dysphagia - Reportedly on mechanical soft thin liquids at SNF - Bedside swallow evaluation then start puree nectar thick diet for now, formal ENGINEERING AIDE evaluation - Aspiration precautions, supervision with PO intake - IVF as per above Physical Exam Temp 98.6, pulse 64, respirations 18, BP 123/74, pulse ox 97% on RA Gen: WDWN male in NAD CV: RRR, no m/r/g Resp: CTAB, no w/r/r GI: Soft, non tender nondistended with +BS Ext: No LE edema bilatearlly Neuro: +dysarthria (improving). A&O x 4, Mild left sided weakness compared to right. No further focal signs Skin: No rashes, lesions or ulcers MSk: no joint swelling or TTP Discussed with RN, case management, cardiology, and Infectious Disease. I spent > 30 minutes on this discharge with >50% on counseling and coordination of care. Discharge Discharge Disposition Patient was discharged to SNF Discharge Diagnoses: (1) Sepsis (2) Aspiration pneumonia (3) DKA (diabetic ketoacidoses) (4) Elevated troponin level not due myocardial infarction (5) Dysarthria (6) CAD (coronary artery disease) (7) History of DVT (deep vein thrombosis) (8) Diabetes mellitus (9) Hyperkalemia (10) Acute kidney injury superimposed on CKD (11) Seizure (12) Metabolic encephalopathy (13) Hyperglycemia Discharge Instructions Discharge Instructions Follow up with: cardiology Additional Diet Information: MECH SOFT FINELY CHOPPED AND CONTINUE WITH NECTAR THICK LIQUIDS Activity: as tolerated Cordell Leiva D.O. Jan 03, 2019 22:08
--- NOTE | 2019-01-03 22:11 | General Progress Note ---
Assessment/Plan Problem List: (1) Renal failure ICD Codes: N19 - Unspecified kidney failure SNOMED: 01835800 Qualifiers: Qualified Codes: N17.9 - Acute kidney failure, unspecified (2) Sepsis ICD Codes: A41.9 - Sepsis, unspecified organism SNOMED: 66273850, 700375136, 754967782 Qualifiers: Qualified Codes: A41.9 - Sepsis, unspecified organism (3) Elevated troponin ICD Codes: R74.8 - Abnormal levels of other serum enzymes SNOMED: 967923916, 173234897, 596750733 (4) CAD (coronary artery disease) ICD Codes: I25.10 - Atherosclerotic heart disease of [place] coronary artery without angina pectoris SNOMED: 83132188 (5) CKD (chronic kidney disease) stage 3, GFR 30-59 ml/min ICD Codes: N18.3 - Chronic kidney disease, stage 3 (moderate) SNOMED: 558957786 (6) History of DVT (deep vein thrombosis) ICD Codes: Z86.718 - Personal history of other venous thrombosis and embolism SNOMED: 830752793 (7) History of hyperlipidemia ICD Codes: Z86.39 - Personal history of other endocrine, nutritional and metabolic disease SNOMED: 718396238 (8) History of neuropathy ICD Codes: Z86.69 - Personal history of other diseases of the nervous system and sense organs SNOMED: 745568662, 627633758 (9) History of chronic hypertension ICD Codes: Z86.79 - Personal history of other diseases of the circulatory system SNOMED: 017316944 (10) Diabetes mellitus ICD Codes: E11.9 - Type 2 diabetes mellitus without complications SNOMED: 75796472 Qualifiers: (11) Hyperglycemia ICD Codes: R73.9 - Hyperglycemia, unspecified SNOMED: 35736706 (12) DKA (diabetic ketoacidoses) ICD Codes: E11.10 - Type 2 diabetes mellitus with ketoacidosis without coma SNOMED: 53624018, 858934935 Qualifiers: Qualified Codes: E13.11 - Other specified diabetes mellitus with ketoacidosis with coma (13) Hyperkalemia ICD Codes: E87.5 - Hyperkalemia SNOMED: 91717556 (14) Acute kidney injury superimposed on CKD ICD Codes: N17.9 - Acute kidney failure, unspecified; N18.9 - Chronic kidney disease, unspecified SNOMED: 36660015, 145057843 Status: progressing - improving Assessment/Plan: Status: progressing - improving Assessment/Plan: Silvio Abraham is a 73 yo man with PMH of DMII (diet controlled not on meds) , epilepsy on AED, CKD stage III (baseline creatinine ~1.5), CAD, CVA with residual weakness and dysphagia, hx DVTs, and HTN who presented from [facility] with AMS, found with leukocytosis 15.5, hyperkalemia 7.1, BUN/Cr 96/5.7, ABG 7.16/37/86.5/13.2, BNP 1640, glucose 1501, troponin 0.103, and positive ketones in urine, admitted to medical ICU for DKA, possible PNA, JERMAN on CKD with hyperkalemia, and likely demand NSTEMI. Patient now with resolved DKA. #New dysarthria May be manifestation of prior stroke in the setting of recent infection per discussion with neurology. No acute stroke on MRI. - IMPROVING #Metabolic encephalopathy - Resolved #hx of epilepsy > CT head without acute pathology, chronic small vessel changes, cerebral parenchymal volume loss 2/2 age. EEG: Diffuse encephalopathy. - Patient back to baseline mental status per family - Continue home keppra 500mg BID - Hold home gabapentin 400mg PO BID given AMS and JERMAN - No longer requiring soft wrist restraints, cooperative now - Appreciate Neurology consult: Dr. Diaz to evaluate. RPR and B12/MMA pending. Repeat MRI in one week. Waiting for final recs. #DKA - resolved, hx DMII (not on medications) with hyperglycemia - IMPROVING > Glucose 1501 on admission, AG 20, +ketones in urine ABG 7.169/37/86.5/13.2 on admission - Continue levemir to 35 units QAm and decrease to 5 units QHS - Decrease lispro to 9 units TIDAC given hypoglycemia - Monitor FS ACHS - hgb A1C 12 this admission. Will need insulin on discharge. #JERMAN on CKD (baseline creatinine ~1.5) - Resolved, hyperkalemia in setting of JERMAN and acidemia - resolved, hypokalemia - resolved, metabolic acidosis - resolved, severe hypernatremia - resolved > BUN/Cr 96/5.7 on admission > Likely prerenal 2/2 severe dehydration > EKG with peak T waves on admission > s/p insulin, calcium gluconate, sodium bicarb x1 in ED > Hyperkalemia resolved with insulin with development of subsequent hypokalemia due to shift, now resolved with repletion. > Metabolic acidosis resolved with resolution of DKA - D/C IV fluids today - Free water deficit of 8.8L. Start D5W@ 125cc/hr 12/20/18. Ending 01/01/19. Will need to watch FS closely. Encourage free water intake. - Monitor BMP q8-12hrs. Avoid overcorrection of sodium. - Strict I/Os monitoring #Sepsis / possible PNA - RESOLVING - Possible PNA as trigger for DKA, question aspiration given patient's hx of seizures and dysphagia and RN report of coughing with water on day of admission - CXR with atelectasis vs infiltrate in medial lung basis - Afebrile with leukocytosis 15.5 on admission. - Zosyn 2.25mg IV q8hr renally (12/28- 01/02) Continue Augumentin for 5 more days. End date 01/07/19. - Blood cultures: One bottle positive, aerobic Gram positive cocci in clusters. - S. Homininis. Likely contaminant per ID consult: Dr. De Anda. - Appreciate ID recommendations: Dr. De Anda - surveilance blood cultures negative to date - UA unremarkable for acute infection - Currently satting well on RA - Aspiration precautions # Demand NSTEMI, hx HTN, CAD, DVTs #Systolic heart failure, EF 40%. Compensated. No interventions per cardiology - Troponin 0.103 on admission, without ST EKG changes, likely demand ischemia in setting of JERMAN on CKD and DKA/sepsis - Repeat troponin 0.772 this morning, patient remains asymptomatic, demand ischemia, trend to downtrend - Continue home aspirin 81mg PO daily - Continue home metoprolol 25mg PO BID - Hold home losartan 50mg PO daily given JERMAN - Resume home amlodipine 5mg PO daily and clonidine 0.1mg PO BID as BP rising today - Continue home eliquis, change to renal dose 2.5mg PO BID -Cardiology consult: Dr. Mendieta. #hx dysphagia - Reportedly on mechanical soft thin liquids at SNF - Bedside swallow evaluation then start puree nectar thick diet for now, formal MAGNET MAKER evaluation - Aspiration precautions, supervision with PO intake - IVF as per above FEN: Puree diet nectar thick liquids bedside urinal for strict I/Os Full Code Telemetry Discussed with RN and Infectious Disease. I spent 37 minutes on this patient's case with >50% on counseling and coordination of care. Subjective Allergies: Coded Allergies: CODEINE (Unverified Allergy, Unknown, 10/16/18) Subjective No acute events overnight. PNA: Breathing is back to baseline. Afebrile, denies cough. Vitals stable. DM2: Blood sugars improved. FBS on the lower side 74, but asymptomatic. No other hypoglycemic events Slurred/delayed speech: Since hospitalization. Has improved since yesterday. MRI negative for acute stroke. No dysphagia, numbness/tingling. Constant. Per patient this still has not improved. Objective Last 24 Hour Vital Signs Date Time Temp Pulse Resp B/P (MAP) Pulse Ox O2 Delivery O2 Flow Rate FiO2 01/03/19 19:07 65 18 99 Room Air 21 01/03/19 18:09 122/68 01/03/19 16:00 62 01/03/19 16:00 98.2 66 20 122/68 (86) 97 66 01/03/19 12:00 98.2 68 18 121/76 (91) 96 64 01/03/19 12:00 63 01/03/19 11:59 62 18 99 Room Air 21 01/03/19 09:56 64 123/70 01/03/19 09:56 64 123/70 01/03/19 09:54 123/70 01/03/19 09:00 Room Air 01/03/19 08:00 98.6 64 22 123/70 (87) 97 64 01/03/19 08:00 60 01/03/19 04:00 98.7 60 18 112/71 (85) 99 60 01/03/19 03:53 58 01/03/19 00:00 99.1 63 18 124/63 (83) 96 63 01/02/19 23:41 56 Intake and Output 01/02/19 01/03/19 19:00 07:00 Intake Total 1240 ml Balance 1240 ml Intake Oral 1240 ml # Voids 2 Laboratory Tests 01/03/19 06:28: White Blood Count 8.6, Red Blood Count 3.27L, Hemoglobin 10.0L, Hematocrit 30.3L , Mean Corpuscular Volume 93, Mean Corpuscular Hemoglobin 30.6, Mean Corpuscular Hemoglobin Concent 33.1, Red Cell Distribution Width 11.2L, Platelet Count 170, Mean Platelet Volume 8.7, Neutrophils (%) (Auto) 58.1, Lymphocytes (%) (Auto) 23.4, Monocytes (%) (Auto) 15.3H, Eosinophils (%) (Auto) 2.4, Basophils (%) (Auto) 0.8, Sodium Level 142, Potassium Level 4.4, Chloride Level 112H, Carbon Dioxide Level 22, Anion Gap 8, Blood Urea Nitrogen 29H, Creatinine 1.8H, Estimat Glomerular Filtration Rate , Glucose Level 114H, Calcium Level 8.5 Height (Feet): 5 Height (Inches): 8.00 Weight (Pounds): 220 Cordell Leiva D.O. Jan 03, 2019 22:11
[2019-01-04] MEDS ORDERED: Imdur 30mg tab ORAL SCH (09:00)
[2019-01-04] MEDS ORDERED: Furosemide 40mg tab ORAL SCH (09:00)
== END 2019-01-03 23:00 | disposition short-term general hospital (02) | DRG 871 ==
LOC: EDBD 06:52 → EMR 07:25 → EDBEDREQSVC 08:21 → EDBEDREQ 08:21 → ICU 11:26 → 2E 12-29 18:11
DX: A41.9 Sepsis, unspecified organism (principal); G93.41 Metabolic encephalopathy; J69.0 Pneumonitis due to inhalation of food and vomit; I50.21 Acute systolic (congestive) heart failure; E11.10 Type 2 diabetes mellitus with ketoacidosis without coma; N17.9 Acute kidney failure, unspecified; E87.0 Hyperosmolality and hypernatremia; I69.359 Hemiplegia and hemiparesis following cerebral infarction affecting unspecified side; I13.0 Hypertensive heart and chronic kidney disease with heart failure and stage 1 through stage 4 chronic kidney disease, or unspecified chronic kidney disease; E87.5 Hyperkalemia; N18.3 Chronic kidney disease, stage 3 (moderate); R74.9 Abnormal serum enzyme level, unspecified; I69.322 Dysarthria following cerebral infarction; I25.10 Atherosclerotic heart disease of native coronary artery without angina pectoris; Z86.718 Personal history of other venous thrombosis and embolism; E11.22 Type 2 diabetes mellitus with diabetic chronic kidney disease; G40.909 Epilepsy, unspecified, not intractable, without status epilepticus; Z88.6 Allergy status to analgesic agent; Z79.82 Long term (current) use of aspirin; F14.11 Cocaine abuse, in remission; E78.5 Hyperlipidemia, unspecified; E11.42 Type 2 diabetes mellitus with diabetic polyneuropathy; Z79.01 Long term (current) use of anticoagulants
CPT/HCPCS: 36415; 36600; 70450; 70551; 71045; 80048; 80053; 80202; 80299; 81003; 82009; 82550; 82553; 82607; 82803; 82962; 83036; 83605; 83735; 83880; 83921; 84100; 84484; 85007; 85025; 85610; 85730; 86592; 86780; 87040; 87081; 87181; 93005; 93306; 94664; 95819; 96361; 96365; 96366; 96367; 96375; 99291; J1815; S5561